=== PATIENT | female | born 1965 | race Caucasian/White ===

== ENCOUNTER 2019-09-21 11:26 | Inpatient (IN) | payer OTHER, SELFPAY ==
[~2019-09-21 11:26] MED LIST: Glycopyrrolate 0.2 MG/ML 5 ML SYRINGE ONE; PHENYLEPHRINE-NS 100 MCG/ML 10 ML SYRINGE ONE; Rocuronium Bromide 10 MG/ML (10ML VIAL) ONE; Succinylcholine Chloride 20 MG/ML 10 ml SYRINGE FS ONE
--- NOTE | 2019-09-21 12:05 | RAD ---
EXAM: Single view of the chest HISTORY: Anemia COMPARISON: 04/30/2009 FINDINGS: Single view of the chest shows a normal sized cardiomediastinal silhouette. There is no isis dence of consolidation, mass, or pleural effusion. The bones are unremarkable. IMPRESSION: No evidence of acute cardiopulmonary disease
[2019-09-21] MEDS ORDERED: Morphine 4 MG/ML VIAL ONE (13:20)
[2019-09-21] MEDS ORDERED: Mag-Al 1200 mg/1200 mg/30 ML UDCUP ONE (13:20)
[2019-09-21] MEDS ORDERED: Lidocaine Viscous Sol 2% 15 ml UD Cup ONE (13:20)
[2019-09-21 13:48] LABS: Hemoglobin 3.6 g/dL (12.0-16.0); Mean Corpuscular HGB CONC 32.3 g/dL (32.0-36.0); Mean Corpuscular Volume 83.6 fL (78.0-98.0); Mean Platelet Volume 7.7 fL (7.4-10.4); Platelet Count 443 thou/uL (130-400); RBC Distribution Width 16.7 % (11.5-14.5); Red Blood Cell (RBC) Count 1.32 mill/uL (4.20-5.40); White Blood Cell (WBC) Count 12.7 thou/uL (4.8-10.8)
[2019-09-21 13:51] LABS: INR-International Normal Ratio 1.1; Prothrombin Time 13.7 SEC (12.0-14.7)
[2019-09-21 13:52] LABS: PTT 21.2 SEC (22.9-36.1)
[2019-09-21 14:09] LABS: #Basophils 0.1 thou/uL (0.0-0.2); #Lymphocytes 2.2 thou/uL (1.20-3.40); #Monocytes 0.7 thou/uL (0.11-0.59); #Neutrophils 9.6 thou/uL (1.40-6.50); %Basophils 0.5 % (0.0-1.0); %Eosinophils 0.2 % (0.0-10.0); %Lymphocytes 17.7 % (21.0-51.0); %Monocytes 5.8 % (0.0-10.0); %Neutrophils 75.8 % (42.0-75.0); Band 5 % (5-11); Hypochromia MODERATE=16-30 cells (100X) (0-5/hpf); Lymphocytes 20 % (21-51); MDiff Complete? YES; Monocytes 3 % (0-10); Neutrophil 71 % (42-75); Platelet Morphology Comment Appears Increased; Polychromasia MODERATE = 3-4 cells (100X) (0-2/hpf); Reactive Lymphocytes 1 % (0-10); Reflex for Review?? YES; Schistocytes SLIGHT = 2-5 cells (100X) (0-1/hpf); Target Cells SLIGHT = 2-5 cells (100X) (0-1/hpf)
[2019-09-21 14:16] LABS: ALT (SGPT) 7 U/L (8-55); AST (SGOT) 11 U/L (5-34); Albumin 3.3 g/dL (3.5-5.0); Alkaline Phosphatase 70 U/L (40-110); Anion Gap 12 mmol/L (10-20); BUN (Urea Nitrogen) 10 mg/dL (9.8-20.1); Bilirubin, Total Less than 0.2 mg/dL (0.2-1.2); Calc. Creatinine Clearance 0 mL/min (70-130); Calcium 7.7 mg/dL (7.8-10.44); Carbon Dioxide 21 mmol/L (22-29); Chloride 107 mmol/L (98-107); Estimated GFR-MDRD 71; Globulin 2.1 g/dL (2.4-3.5); Glucose 119 mg/dL (70-105); Iron 9 ug/dL (50-170); Iron Binding Capacity, Total 396 mcg/dL (265-497); Potassium 3.9 mmol/L (3.5-5.1); Protein, Total 5.4 g/dL (6.0-8.3); Sodium 136 mmol/L (136-145)
[2019-09-21] MEDS ORDERED: Acetaminophen 325 MG TAB PO PRN (15:31)
[2019-09-21] MEDS ORDERED: Bisacodyl 10 MG SUPP PR PRN (15:31)
[2019-09-21] MEDS ORDERED: Senokot S 8.6-50 MG TAB PO PRN (15:31)
[2019-09-21] MEDS ORDERED: Ondansetron ODT 4 MG TAB PO PRN (15:31)
[2019-09-21] MEDS ORDERED: Pantoprazole 40 MG VIAL IVP SCH (15:34)
[2019-09-21] MEDS ORDERED: Fentanyl 100 MCG/2 ML VIAL ONE ×3 (17:23→20:39)
[2019-09-21 17:30] VITALS: BMI 28.7
[2019-09-21] MEDS ORDERED: Levofloxacin 500 mg/D5W 100 ml Premix Bag ONE (17:39)
[2019-09-21] MEDS ORDERED: Phenylephrine HCL 10 MG/ML VIAL ONE (18:11)
[2019-09-21] MEDS ORDERED: Ondansetron HCl/PF 4 MG/2 ML Vial IVP PRN (19:44)
[2019-09-21] MEDS ORDERED: Promethazine HCl 25 MG/ML VIAL IM PRN (19:44)
[2019-09-21] MEDS ORDERED: Promethazine HCl 25 MG/ML VIAL SLOW IVP PRN (19:44)
[2019-09-21] MEDS ORDERED: SUGAMMADEX SODIUM 200 MG/2 ML VIAL ONE (19:59)
[2019-09-21 20:17] LABS: INR-International Normal Ratio 1.1; PTT 23.7 SEC (22.9-36.1)
[2019-09-21 20:25] LABS: Anion Gap 13 mmol/L (10-20); BUN (Urea Nitrogen) 9 mg/dL (9.8-20.1); Calc. Creatinine Clearance 91 mL/min (70-130); Calcium 7.1 mg/dL (7.8-10.44); Carbon Dioxide 19 mmol/L (22-29); Chloride 110 mmol/L (98-107); Estimated GFR-MDRD 68; Glucose 118 mg/dL (70-105); Potassium 4.1 mmol/L (3.5-5.1); Sodium 138 mmol/L (136-145)
[2019-09-21 20:39] LABS: Hemoglobin 8.6 g/dL (12.0-16.0); Mean Corpuscular HGB CONC 32.9 g/dL (32.0-36.0); Mean Corpuscular Hemoglobin 28.8 pg (27.0-31.0); Mean Corpuscular Volume 87.6 fL (78.0-98.0); Platelet Count 291 thou/uL (130-400); RBC Distribution Width 14.1 % (11.5-14.5); Red Blood Cell (RBC) Count 2.99 mill/uL (4.20-5.40)
[2019-09-21 20:52] LABS: #Lymphocytes 2.2 thou/uL (1.20-3.40); #Monocytes 0.7 thou/uL (0.11-0.59); #Neutrophils 13.2 thou/uL (1.40-6.50); %Basophils 0.1 % (0.0-1.0); %Eosinophils 0.1 % (0.0-10.0); %Lymphocytes 13.4 % (21.0-51.0); %Monocytes 4.2 % (0.0-10.0); %Neutrophils 82.3 % (42.0-75.0); Hypochromia SLIGHT = 6-15 cells (100X) (0-5/hpf); MDiff Complete? YES; Platelet Morphology Comment Appears Adequate
[2019-09-21] MEDS ORDERED: Lorazepam 2 MG/ML VIAL SLOW IVP PRN (21:10)
[2019-09-21] MEDS: Ondansetron PF 4 MG/2 ML Vial IVP PRN (22:22)
[2019-09-21] MEDS: Sodium Chloride 0.9% 1,000 ML IV SCH (22:23)
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
--- NOTE | 2019-09-22 02:08 | OP ---
DATE OF PROCEDURE: 09/21/2019 POSTOPERATIVE DIAGNOSES: A 54-year-old female with large bladder tumor, severe anemia, presenting hemoglobin of 3.3. POSTOPERATIVE DIAGNOSES: A 54-year-old female with large bladder tumor, severe anemia, presenting hemoglobin of 3.3. PROCEDURES PERFORMED: Cystoscopy, evacuation of clots, transurethral resection of bladder tumor ANESTHESIA: General. COMPLICATIONS: None apparent. DISPOSITION: To recovery room in stable condition. INTRAOPERATIVE FINDINGS: 1. Large bladder tumor, hypervascular, more than 5 cm @ right lateral wall superior to the right UO. 2. Multiple neovascularity of the bladder mucosa due to large presenting bleeding bladder tumor. INDICATIONS FOR THE PROCEDURE: Ms. Montelongo is a 54-year-old female who has been smoking since age of 18, she is known to have a bladder mass; however, never had this evaluated or treated. She came in with worsening fatigue, myalgia, worsening GERD, epigastric abdominal discomfort She has been provided 2 units of packed RBCs and fluids. Remarkably, she is hemodynamically stable. I did irrigate at bedside. Extensive amount of clots were removed. Due to severe anemia, I have recommended emergent TURBT. Risks, complications and indications reviewed including, but not limited to, bleeding, pain, infection, perioperative morbidity, mortality, PE, DVT, MD, CVA, bladder perforation, injury to adjacent organs such as ureteral orifices. All questions answered to her satisfaction, she desired to proceed. She has been fully informed regarding gravity of presentation of severe anemia and large bladder tumor with bleeding. DESCRIPTION OF PROCEDURE: After an informed consent was signed, the patient taken the operating room, placed in a dorsal lithotomy position with the genital area prepped and draped in the usual surgical sterile fashion. A 21-Albanian cystoscope was utilized and a large bladder tumor with clot adherence was noted. We subsequently transitioned to a 26-Albanian resectoscope and Ellik evacuator was utilized to evacuate multiple large bladder clots. There was a large papillary bladder tumor in the right lateral wall, the base of the tumor was superior to the right ureteral orifice. The left UO was identified with clear efflux of urine. Using a Gyrus bipolar, we resected the bladder tumor. It was very hypervascular , there were multiple areas of hypervascularity, which resection was very challenging. We were able to resect a bladder complete, flush to the bladder mucosa. We sent specimen superficial, deep resection of specimen was obtained. I was able to see muscle fibers with the resection; therefore, I feel that we have muscle specimen. After appropriate complete resection of the bladder tumor, the bed of the tumor was fulgurated for good hemostasis. The right UO was identified and clear efflux of urine was confirmed after the resection. The margin of fulguration of the bladder tumor was just superior to the right UO; however, the right UO was protected at all times with clear efflux noted at the end of the procedure. A 24-Albanian three way 30 mL three-way Sawyer catheter was placed, CBI at a very low rate, which appears to be clear. She tolerated the procedure well and transported to the recovery room in stable condition. FLUIDS: IV fluids 2 liters. TRANSFUSIONS: Two units of packed RBCs, 2 units of FFP. ESTIMATED BLOOD LOSS: About 300 mL. Job ID: [id number] MTDD
[2019-09-22] MEDS: Nicotine 14 MG PATCH TD SCH ×2 (02:41→16:51)
[2019-09-22] MEDS: Hyoscyamine Sulfate SL 0.125 mg Tablet SL SCH ×5 (02:41→22:37)
[2019-09-22] MEDS: Sodium Chloride 0.9% 1,000 ML IV SCH (02:47)
[2019-09-22 06:10] LABS: Anion Gap 11 mmol/L (10-20); BUN (Urea Nitrogen) 8 mg/dL (9.8-20.1); Calc. Creatinine Clearance 104 mL/min (70-130); Calcium 7.1 mg/dL (7.8-10.44); Carbon Dioxide 17 mmol/L (22-29); Chloride 110 mmol/L (98-107); Estimated GFR-MDRD 80; Glucose 85 mg/dL (70-105); Potassium 3.8 mmol/L (3.5-5.1); Sodium 134 mmol/L (136-145)
[2019-09-22] MEDS: Docusate 100 MG CAP PO SCH ×3 (06:26→20:09)
[2019-09-22 07:01] LABS: #Lymphocytes 1.6 thou/uL (1.20-3.40); #Monocytes 0.7 thou/uL (0.11-0.59); #Neutrophils 9.3 thou/uL (1.40-6.50); %Basophils 0.3 % (0.0-1.0); %Eosinophils 0.4 % (0.0-10.0); %Monocytes 5.7 % (0.0-10.0); %Neutrophils 79.6 % (42.0-75.0); Anisocytosis SLIGHT = 6-15 cells (100X) (0-5/hpf); Hemoglobin 7.9 g/dL (12.0-16.0); Hypochromia SLIGHT = 6-15 cells (100X) (0-5/hpf); MDiff Complete? YES; Mean Corpuscular HGB CONC 33.4 g/dL (32.0-36.0); Mean Platelet Volume 8.1 fL (7.4-10.4); Platelet Count 304 thou/uL (130-400); RBC Distribution Width 14.6 % (11.5-14.5); Red Blood Cell (RBC) Count 2.73 mill/uL (4.20-5.40); White Blood Cell (WBC) Count 11.7 thou/uL (4.8-10.8)
[2019-09-22] MEDS ORDERED: Lactated Ringer's 1,000 ML IV SCH (08:45)
[2019-09-22] MEDS: Morphine 4 MG/ML VIAL SLOW IVP PRN (09:21)
--- NOTE | 2019-09-22 10:31 | PRG ---
DATE OF SERVICE: 09/22/2019 SUBJECTIVE: The patient is resting, complaining of epigastric discomfort, which was present prior to surgery. OBJECTIVE: VITAL SIGNS: Stable. CBI was running at a very low rate with clear yellow urine. CBI held this morning and continues to have clear dilute urine. ABDOMEN: Demonstrates upper epigastric discomfort as previous. Suprapubic area demonstrates no significant rigidity or rebound. Sawyer catheter adequately secured, draining clear yellow urine. EXTREMITIES: No cyanosis, clubbing, or edema. PERTINENT LABORATORY DATA: White count today is 11, hemoglobin is 7.9. Prior to surgery, her hemoglobin is 3.6, platelets 304. Renal function stable at 0.76. Pathology is pending. IMPRESSION AND PLAN: Ms. Montelongo is a 54-year-old female with significant tobacco abuse, known history of bladder mass with no evaluation, presented with clot retention, severe anemia, postoperative day #1, status post cysto, transurethral resection of bladder tumor, evacuation of clots. Her H and H are stable, hematuria has near resolved. will continue to monitor the patient with indwelling Sawyer catheter; hold CBI. Nurses instructed to restart CBI or flush tubing p.r.n. for clots debris. Case Management consultation advised, as she is noninsured. No anticoagulation due to severe anemia and presenting large bladder tumor with clot retention. Continue bilateral Vitaliy Noguera for DVT/ ATB prophylaxis. Job ID: [id number] ANA
--- NOTE | 2019-09-22 11:21 | PDOC.HOSPP ---
- Subjective Encounter Date: 09/22/19 Encounter Time: 11:18 Subjective: 54 y/o female with bladder mass associated with chronic hematuria, GERD and tobacco abuse disorder admitted with difficulty urination. Found to have gross hematuria on passage of catheter as well as severe anemia with Hb of 3. Transfused and subsequently taken to oral for cyst and transurethral resection of bladder mass. complains of generalized weakness, and epigastric discomfort. - Objective Vital Signs & Weight: Vital Signs (12 hours) Temp Pulse Ox 09/22/19 10:38 99.4 F 09/22/19 08:00 96 09/22/19 07:11 99.3 F 09/22/19 03:50 98.4 F 09/22/19 00:00 98.0 F Weight Weight 167 lb 8 oz Most Recent Monitor Data Heart Rate from ECG 74 NIBP 115/69 NIBP BP-Mean 84 Respiration from ECG 20 SpO2 96 I&O: 09/21/19 09/22/19 09/23/19 06:59 06:59 06:59 Intake Total 0 Output Total 350 Balance -350 Result Diagrams: 09/22/19 05:30 09/22/19 05:30 Hospitalist ROS - Medication Medications: Active Medications Generic Name Dose Route Start Last Admin Trade Name Freq PRN Reason Stop Dose Admin Docusate Sodium 100 mg 09/21/19 21:00 09/22/19 09:22 Colace PO 100 mg BID DEMETRIO Administration Hyoscyamine Sulfate 0.25 mg 09/21/19 23:59 09/22/19 07:06 Levsin Sl SL 0.25 mg Q6HR DEMETRIO Administration Lactated Ringer's 1,000 mls @ 100 mls/hr 09/22/19 08:45 09/22/19 09:22 Lactated Ringer's IV 1,000 mls .Q10H DEMETRIO Administration Lorazepam 1 mg 09/21/19 21:10 09/21/19 22:23 Ativan SLOW IVP 1 mg Q4H PRN Administration Anxiety/Agitation Morphine Sulfate 4 mg 09/21/19 19:33 09/22/19 09:21 Morphine SLOW IVP 4 mg Q2H PRN Administration Severe Pain (7-10) Nicotine 14 mg 09/21/19 16:00 09/22/19 02:41 Nicoderm Patch TD 14 mg Q24HR DEMETRIO Administration Ondansetron HCl 4 mg 09/21/19 15:31 09/21/19 16:26 Zofran Odt PO 4 mg Q6H PRN Administration Nausea/Vomiting Ondansetron HCl 4 mg 09/21/19 15:31 09/21/19 22:22 Zofran IVP 4 mg Q6H PRN Administration Nausea/Vomiting Pantoprazole Sodium 40 mg 09/22/19 09:00 09/22/19 09:22 Protonix PO 40 mg DAILY DEMETRIO Administration Sodium Chloride 10 ml 09/21/19 19:33 09/22/19 09:21 Flush - Normal Saline IVF 10 ml PRN PRN Administration Saline Flush - Exam General Appearance: awake alert General - other findings: fatigued Eye: anicteric sclera ENT: normocephalic atraumatic Neck: supple, symmetric, no JVD Heart: RRR Respiratory: no wheezes, no rales, no ronchi, normal chest expansion, no tachypnea Gastrointestinal: soft, non-distended, normal bowel sounds Gastrointestinal - other findings: christie catheter in place Extremities: no cyanosis, no edema Neurological: cranial nerve grossly intact, no focal deficits Musculoskeletal: generalized weakness Psychiatric: normal affect, A&O x 3 Hosp A/P (1) Bladder cancer Status: Acute (2) Iron deficiency anemia due to chronic blood loss Code(s): D50.0 - IRON DEFICIENCY ANEMIA SECONDARY TO BLOOD LOSS (CHRONIC) Status: Acute (3) Chronic blood loss anemia Code(s): D50.0 - IRON DEFICIENCY ANEMIA SECONDARY TO BLOOD LOSS (CHRONIC) Status: Acute (4) GERD (gastroesophageal reflux disease) Code(s): K21.9 - GASTRO-ESOPHAGEAL REFLUX DISEASE WITHOUT ESOPHAGITIS Status: Acute (5) Tobacco abuse disorder Code(s): Z72.0 - TOBACCO USE Status: Acute (6) Gross hematuria Status: Acute (7) Acute urinary retention Code(s): R33.8 - OTHER RETENTION OF URINE Status: Acute (8) Metabolic acidosis Code(s): E87.2 - ACIDOSIS Status: Acute - Plan Substituye NS with LR Continue antibiotics Start IV iron to replete iron stores due to severe iron deficiency CBI as per urology Continue PPI. Rule AMI with serial troponin. diet as tolerated. SCD for DVT prophylaxis monitor H/H Await bladder mass pathology.
[2019-09-22] MEDS ORDERED: Iron, Sodium Ferric Gluconate 250 MG in Sodium Chloride 0.9% 100 ML IVPB SCH (12:00)
[2019-09-22] MEDS: Ondansetron PF 4 MG/2 ML Vial IVP PRN (12:13)
[2019-09-22] MEDS: Morphine 2 MG/ML SYRINGE SLOW IVP PRN ×2 (12:15→19:05)
[2019-09-22 14:03] LABS: Troponin I Less than 0.010 ng/mL (< 0.028)
[2019-09-22] MEDS ORDERED: Furosemide 20 MG/2 ML VIAL SLOW IVP SCH (16:45)
--- NOTE | 2019-09-22 17:32 | CON ---
DATE OF CONSULTATION: 09/22/2019 REASON FOR CONSULTATION: [facility] patient. HISTORY OF PRESENT ILLNESS: The patient is a 54-year-old white female with past medical history significant for recent diagnosis of hematuria. Ultimately, she was discovered to have a bladder mass. She is postop day #1 from cystoscopy, evacuation of clots with transurethral resection of bladder tumor. Apparently, there was a significant amount of blood loss prior to and during the procedure. Ultimately , the patient is currently recovering from that. She had significant amounts of IV fluids during the procedure and afterward. She received multiple blood products. She currently denies having any shortness of breath. She has no chest discomfort, nausea, or vomiting. Otherwise, she is in her usual state of health. PAST MEDICAL HISTORY: 1. Gastroesophageal reflux disease. 2. Bladder mass. 3. Hypertension. 4. COPD. 5. Tobacco abuse. PAST SURGICAL HISTORY: 1. Laparotomy for exploration. 2. Splenectomy. 3. Spine surgery. SOCIAL HISTORY: Negative for significant alcohol or illicit drug use. She has a [id number] history of smoking. She has no exposure to chemicals, dust, asbestos, or tuberculosis. FAMILY HISTORY: Noncontributory. ALLERGIES: ASPIRIN. MEDICATIONS: List of her inpatient medications was reviewed. I have introduced a small dose of Lasix and interrupted her IV fluids. REVIEW OF SYSTEMS: General, head, ears, eyes, nose, throat, cardiovascular, respiratory, GI, , musculoskeletal, neurologic, and skin are negative except as mentioned in the HPI. PHYSICAL EXAMINATION: VITAL SIGNS: Afebrile, pulse 72, blood pressure 134/79, respirations 20, and saturation 97% on room air. GENERAL: The patient is awake and alert, in no apparent distress. LUNGS: Decent air entry. Extensive crackling present in bibasilar regions. There is no prolonged expiratory phase or wheezing present. HEART: Normal rate, regular. ABDOMEN: Soft, nontender, and nondistended. Bowel sounds are positive. MUSCULOSKELETAL: No cyanosis or clubbing. There is no pitting in the bilateral lower extremities. NEUROLOGIC: Grossly nonfocal. LABORATORY DATA: Hemoglobin was down to 3.3 at one point, but it has come up to 7.9. INR 1.1. Calcium 7.1. Basic metabolic profile is otherwise unremarkable/improving. Urinalysis is unable to interpret because of the significant blood. Nitrites and leukocyte esterase were all positive. ASSESSMENT: 1. Gross hematuria. 2. Acute blood loss anemia. 3. Bladder mass, status post transurethral excision, postop day #1. 4. Acute hypoxic respiratory failure, improving. 5. Metabolic encephalopathy, improving. DISCUSSION AND PLAN: I am going to give the patient a couple doses of Lasix, one now and one tomorrow morning. She has significantly volume up associated with the resuscitation that she experienced yesterday. Pulmonary/Critical Care will continue to follow for the time being. If she is stable tomorrow morning, she could be considered for transition to the floor. 70 minutes have been devoted to this patient in various activities. I personally reviewed all imaging studies and laboratory data noted within this document. For fifty percent of this time, I was interacting with the patient at the bedside or coordinating care with the care team. For the remainder of the time I was immediately available to the patient in the hospital unit. Job ID: [id number] MTDD
[2019-09-22] MEDS ORDERED: rOPINIRole HCl 0.25 MG TAB PO SCH (22:15)
[2019-09-23] MEDS: Hyoscyamine Sulfate SL 0.125 mg Tablet SL SCH ×4 (05:01→23:32)
[2019-09-23] MEDS: Morphine 2 MG/ML SYRINGE SLOW IVP PRN ×4 (05:01→14:00)
[2019-09-23] MEDS ORDERED: Furosemide 20 MG/2 ML VIAL SLOW IVP SCH (06:00)
[2019-09-23] MEDS: Iron, Sodium Ferric Gluconate 250 MG in Sodium Chloride 0.9% 100 ML IVPB SCH (09:20)
[2019-09-23] MEDS: Docusate 100 MG CAP PO SCH ×2 (09:20→20:55)
[2019-09-23 09:55] LABS: Hemoglobin 9.1 g/dL (12.0-16.0); Mean Corpuscular HGB CONC 33.2 g/dL (32.0-36.0); Mean Corpuscular Hemoglobin 28.7 pg (27.0-31.0); Mean Corpuscular Volume 86.4 fL (78.0-98.0); Mean Platelet Volume 9.3 fL (7.4-10.4); Platelet Count 285 thou/uL (130-400); RBC Distribution Width 15.4 % (11.5-14.5); Red Blood Cell (RBC) Count 3.17 mill/uL (4.20-5.40); White Blood Cell (WBC) Count 10.1 thou/uL (4.8-10.8)
[2019-09-23 10:24] LABS: Anion Gap 13 mmol/L (10-20); BUN (Urea Nitrogen) 6 mg/dL (9.8-20.1); Calc. Creatinine Clearance 100 mL/min (70-130); Calcium 8.3 mg/dL (7.8-10.44); Carbon Dioxide 26 mmol/L (22-29); Chloride 102 mmol/L (98-107); Estimated GFR-MDRD 76; Glucose 96 mg/dL (70-105); Sodium 138 mmol/L (136-145)
--- NOTE | 2019-09-23 11:30 | PDOC.HOSPP ---
- Subjective Encounter Date: 09/23/19 Encounter Time: 10:28 Subjective: 54 y/o female with bladder mass associated with chronic hematuria, GERD and tobacco abuse disorder admitted with difficulty urination. Found to have gross hematuria on passage of catheter as well as severe anemia with Hb of 3. Transfused and subsequently taken to oral for cystoscopy and transurethral resection of bladder mass. Feeling better. - Objective Vital Signs & Weight: Vital Signs (12 hours) Temp 09/23/19 10:23 97.9 F 09/23/19 07:12 98.4 F 09/23/19 03:56 99.0 F 09/22/19 23:39 98.7 F Weight Admit Weight 167 lb Weight 167 lb 8 oz Most Recent Monitor Data Heart Rate from ECG 68 NIBP 124/69 NIBP BP-Mean 87 Respiration from ECG 16 SpO2 97 I&O: 09/22/19 09/23/19 09/24/19 06:59 06:59 06:59 Intake Total 0 2990 Output Total 350 6175 Balance -350 -3185 Result Diagrams: 09/23/19 09:19 09/23/19 09:19 Hospitalist ROS - Medication Medications: Active Medications Generic Name Dose Route Start Last Admin Trade Name Freq PRN Reason Stop Dose Admin Acetaminophen 650 mg 09/21/19 15:31 09/22/19 16:51 Tylenol PO 650 mg Q4H PRN Administration Headache/Fever/Mild Pain (1-3) Docusate Sodium 100 mg 09/21/19 21:00 09/23/19 09:20 Colace PO 100 mg BID DEMETROI Administration Furosemide 20 mg 09/23/19 06:00 09/23/19 05:01 Lasix SLOW IVP 20 mg 0600 DEMETRIO Administration Hyoscyamine Sulfate 0.25 mg 09/21/19 23:59 09/23/19 05:01 Levsin Sl SL 0.25 mg Q6HR DEMERTIO Administration Levofloxacin 500 mg/ Device 100 mls @ 100 mls/hr 09/22/19 18:00 09/22/19 17: 03 IVPB 100 mls 1800 DEMETRIO Administration Ferric Sodium Gluconate 120 mls @ 60 mls/hr 09/23/19 09:00 09/23/19 09:20 Complex 250 mg/ Sodium IVPB 09/25/19 09:01 120 mls Chloride DAILY DEMETRIO Administration Lorazepam 1 mg 09/21/19 21:10 09/21/19 22:23 Ativan SLOW IVP 1 mg Q4H PRN Administration Anxiety/Agitation Morphine Sulfate 2 mg 09/21/19 19:33 09/23/19 09:23 Morphine SLOW IVP 2 mg Q2H PRN Administration Moderate Pain (4-6) Morphine Sulfate 4 mg 09/21/19 19:33 09/22/19 09:21 Morphine SLOW IVP 4 mg Q2H PRN Administration Severe Pain (7-10) Nicotine 14 mg 09/21/19 16:00 09/22/19 16:51 Nicoderm Patch TD 14 mg Q24HR DEMETRIO Administration Ondansetron HCl 4 mg 09/21/19 15:31 09/21/19 16:26 Zofran Odt PO 4 mg Q6H PRN Administration Nausea/Vomiting Ondansetron HCl 4 mg 09/21/19 15:31 09/22/19 12:13 Zofran IVP 4 mg Q6H PRN Administration Nausea/Vomiting Pantoprazole Sodium 40 mg 09/22/19 09:00 09/23/19 09:20 Protonix PO 40 mg DAILY DEMETRIO Administration Sodium Chloride 10 ml 09/21/19 19:33 09/22/19 09:21 Flush - Normal Saline IVF 10 ml PRN PRN Administration Saline Flush - Exam General Appearance: awake alert Eye: anicteric sclera ENT: normocephalic atraumatic Neck: symmetric, no JVD Heart: RRR Respiratory: no wheezes, no rales, no ronchi, normal chest expansion Respiratory - other findings: mild bibasal crackles posteriorly Gastrointestinal: soft, non-tender, non-distended, normal bowel sounds Gastrointestinal - other findings: Sawyer catheter in place Extremities: no edema Neurological: cranial nerve grossly intact, no focal deficits Psychiatric: normal affect, A&O x 3 Hosp A/P (1) Bladder cancer Status: Acute (2) Iron deficiency anemia due to chronic blood loss Code(s): D50.0 - IRON DEFICIENCY ANEMIA SECONDARY TO BLOOD LOSS (CHRONIC) Status: Acute (3) Chronic blood loss anemia Code(s): D50.0 - IRON DEFICIENCY ANEMIA SECONDARY TO BLOOD LOSS (CHRONIC) Status: Acute (4) GERD (gastroesophageal reflux disease) Code(s): K21.9 - GASTRO-ESOPHAGEAL REFLUX DISEASE WITHOUT ESOPHAGITIS Status: Acute (5) Tobacco abuse disorder Code(s): Z72.0 - TOBACCO USE Status: Acute (6) Gross hematuria Status: Acute (7) Acute urinary retention Code(s): R33.8 - OTHER RETENTION OF URINE Status: Acute (8) Metabolic acidosis Code(s): E87.2 - ACIDOSIS Status: Acute (9) Hypokalemia Code(s): E87.6 - HYPOKALEMIA Status: Acute - Plan Replete serum potassium with oral KCL. Continue antibiotics ContinueIV iron to replete iron stores due to severe iron deficiency CBI as per urology Continue PPI. Diet as tolerated. SCD for DVT prophylaxis Get CBC, BMP and magnesium in the am. Await bladder mass pathology.
--- NOTE | 2019-09-23 11:35 | PRG ---
DATE OF SERVICE: 09/23/2019 SUBJECTIVE: The patient appears to be much more alert, coherent. Clinically, she is improving. OBJECTIVE: VITAL SIGNS: Stable. She is afebrile. I's and O's 2990 in and 6170 out. She is negative 3.1 L. she has been provided IV Lasix by Pulmonology. Urine output is clear. ABDOMEN: Soft. No rigidity. No rebound. : Sawyer catheter draining dilute clear urine. EXTREMITIES: No cyanosis, clubbing, or edema. No calf tenderness. LABORATORY DATA: White count is 10, hemoglobin is 9.1 and admitting hemoglobin is 3.3, and platelet count 285. Coagulation profile is within normal limits. Creatinine today is 0.7. Troponins are negative. IMPRESSION AND PLAN: Ms. Montelongo is a 54-year-old female with history of significant tobacco abuse, presented with severe anemia and large bladder tumor and clot retention, postop day #2, status post transurethral resection of bladder tumor, evacuation of clots Clinically, she is improving. She has been diuresed aggressively by Pulmonology. Consider Hep- Lock IV as she is consuming adequate oral intake. Continue to monitor daily labs. I informed the patient that intraoperative findings of large bladder tumor. There is a high probability that she has muscle invasive bladder cancer. It would be prudent to obtain a Cardiology evaluation, due to significant tobacco abuse, as she will most likely require cardiac clearance for more definitive surgery i.e., radical cystectomy. Indications reviewed. Questions were encouraged and answered. Continue indwelling Sawyer catheter, do not remove Sawyer catheter unless initiated by . Job ID: [id number]
[2019-09-23] MEDS: Potassium Chloride 20 MEQ TAB PO SCH ×3 (12:20→19:05)
--- NOTE | 2019-09-23 12:41 | CON ---
DATE OF CONSULTATION: 09/23/2019 REASON FOR CONSULTATION: Preoperative evaluation. HISTORY OF PRESENT ILLNESS: Ms. Montelongo is a pleasant 54-year-old white female, who comes to the hospital for shortness of breath and lower abdominal pain and epigastric pain. She was diagnosed with severe anemia. She had a hemoglobin of 3. She had been having hematuria for at least two weeks prior. She had a known history of bladder cancer that she had not been taking care of, so Dr. Carr took her for cystoscopy and resection of bladder tumor. She alleviated the obstruction and bleeding and she has been transfused. Her last hemoglobin was about 9. She denies chest pain, but admits to some epigastric pain. She says it is there most of the time. She also has a lot of bladder pain. Sometimes she eats and she has right upper quadrant pain as well just after meals. She has not been doing much and we does not know if she would get short of breath, because of the amount of pain she was in, she was just in bed most of the time. PAST MEDICAL HISTORY: 1. GERD. 2. Bladder mass. 3. Hypertension. 4. COPD. 5. Tobacco abuse. PAST SURGICAL HISTORY: 1. Exploratory laparotomy. 2. Splenectomy. 3. Spine surgery. SOCIAL HISTORY: No alcohol or drugs. A 30 pack-year smoking history. FAMILY HISTORY: Noncontributory. OUTPATIENT MEDICATIONS: Aspirin 81 a day. ALLERGIES: NO KNOWN DRUG ALLERGIES. IN THE SYSTEM, THERE HAS BEEN SOMEWHERE THAT THEY SAY THAT SHE IS ALLERGIC TO ASPIRIN, HOWEVER, SHE HAS BEEN TAKING ASPIRIN MANY TIMES, SHE WAS TAKING IT BEFORE COMING IN AND SHE HAS NEVER HAD AN ALLERGIC REACTION THAT SHE KNOWS OF. REVIEW OF SYSTEMS: A 12-point review of systems was done and was all negative unless stated in history of present illness. PHYSICAL EXAMINATION: VITAL SIGNS: Temperature 97.9, pulse rate 68, respiratory rate 16, saturating 97% on room air, and blood pressure 124/69. GENERAL: Awake, alert, and oriented x3. No distress. HEENT: Normocephalic and atraumatic. NECK: Supple. LUNGS: Clear. CARDIOVASCULAR: S1 and S2. No S3 or S4. No murmurs. ABDOMEN: Soft. Positive bowel sounds. EXTREMITIES: No edema. SKIN: Warm and dry. LABORATORY DATA: Laboratory work was reviewed. White count of 12 on admission with a hemoglobin of 3.6 up to 9.1 and white count of 10, platelet count of 285. Coags were unremarkable. Chemistries; the last chemistry with a sodium of 138, potassium was 3.0, chloride of 102, carbon dioxide of 26, anion gap of 13, BUN of 6, creatinine 0.79. Troponin was negative x1. Ferritin was undetectable. Total bilirubin was undetectable. Glucose was 119; calcium was 7.7, last time it was 8.3, iron was 9, which is very low; albumin of 3.3. EKG was reviewed. ASSESSMENT/PLAN: 1. Preoperative evaluation. 2. History of tobacco use. 3. History of right upper quadrant pain and epigastric pain. PLAN: 1. Certainly cannot assess her level of mets, because of all this pain she has been having, she really has not been able to do much. She is at risk for coronary artery disease with tobacco use. We will plan on risk stratification with a nuclear stress test. We will do this tomorrow morning. We will also get an echocardiogram. Nothing high risk shows on these tests. She should be a reasonable risk for further surgeries. 2. We will get a right upper quadrant ultrasound as she may also have gallstones as the symptoms would suggest pain in the right upper quadrant after meals. Thank you for letting us to participate in the care of your patient. We will continue to follow. Job ID: [id number]
[2019-09-23] MEDS: Nicotine 14 MG PATCH TD SCH (15:28)
[2019-09-23] MEDS: HYDROcodone/Acetaminophen 5/325 mg Tablet PO PRN ×3 (15:33→23:34)
--- NOTE | 2019-09-23 18:41 | PRG ---
DATE OF SERVICE: 09/23/2019 SERVICE: Pulmonary Medicine. INTERVAL HISTORY: The patient is breathing okay from respiratory standpoint. Denies any current chest discomfort, nausea, or vomiting. Otherwise, there has been no interval significant change to her condition. PHYSICAL EXAMINATION: VITAL SIGNS: Afebrile, pulse 73, blood pressure 128/81, respirations 18, and saturation 93%, currently on room air. GENERAL: The patient is awake and alert, in no apparent distress. LUNGS: Very good air entry. There is some minimal dependent crackles present. No prolonged expiratory phase or wheezing is appreciated. HEART: Normal rate. Regular. ABDOMEN: Soft. Tender to palpation. Bowel sounds present. MUSCULOSKELETAL: No cyanosis or clubbing. No pitting in the bilateral lower extremities. NEUROLOGIC: Grossly nonfocal. LABORATORY DATA: WBC 10.1, hemoglobin 9.1, and platelets 285,000. Basic metabolic profile is unremarkable except for potassium of 3.0. Troponin is less than the assay limit of 0.01. ASSESSMENT: 1. Gross hematuria, resolved. 2. Acute blood loss anemia, stable. 3. Bladder mass, status post transurethral excision, postop day 2. 4. Metabolic encephalopathy, resolved. DISCUSSION AND PLAN: I will replace the patient's potassium. Her hemodynamics, respiratory status, and hemoglobin are stable. At this point, she has no further requirements for inpatient Pulmonary or Critical Care opinion, and I will sign off. Please call with additional questions or concerns through time. Job ID: [id number]
[2019-09-23] MEDS: rOPINIRole HCl 0.25 MG TAB PO SCH (20:57)
[2019-09-24] MEDS: HYDROcodone/Acetaminophen 5/325 mg Tablet PO PRN ×5 (03:44→23:44)
[2019-09-24 04:22] LABS: Hemoglobin 8.1 g/dL (12.0-16.0); Mean Corpuscular HGB CONC 33.1 g/dL (32.0-36.0); Mean Corpuscular Hemoglobin 28.8 pg (27.0-31.0); Mean Platelet Volume 8.3 fL (7.4-10.4); Platelet Count 339 thou/uL (130-400); RBC Distribution Width 15.6 % (11.5-14.5)
[2019-09-24 04:53] LABS: Anion Gap 10 mmol/L (10-20); BUN (Urea Nitrogen) 7 mg/dL (9.8-20.1); Calc. Creatinine Clearance 101 mL/min (70-130); Calcium 8.1 mg/dL (7.8-10.44); Carbon Dioxide 25 mmol/L (22-29); Chloride 107 mmol/L (98-107); Estimated GFR-MDRD 78; Glucose 87 mg/dL (70-105); Magnesium 2.2 mg/dL (1.6-2.6); Potassium 4.1 mmol/L (3.5-5.1); Sodium 138 mmol/L (136-145)
[2019-09-24] MEDS: Hyoscyamine Sulfate SL 0.125 mg Tablet SL SCH ×4 (05:20→23:44)
--- NOTE | 2019-09-24 08:21 | ULT ---
RIGHT UPPER QUADRANT ULTRASOUND: HISTORY: Right upper quadrant pain after meals. COMPARISON: None. TECHNIQUE: Utilizing a Multihertz transducer, sonographic imaging of the right upper quadrant is performed in a longitudinal and transverse plane. FINDINGS: The head of the pancreas has a normal echotexture. The remainder of the pancreas is obscured by sg l gas. The visualized IVC is unremarkable. Hepatic parenchyma has a heterogeneous echotexture which may be due to hepatic steatosis or hepatocel lular disease. Limited evaluation for hepatic masses and intrahepatic biliary dilatation. Contour o f the hepatic margin is maintained. There does appear to be a small amount of right-sided pleural fluid. A small amount of pericholecystic fluid. Gallbladder wall is thickened measuring 0.5 cm. Gallbladde r is contracted. No sonographic evidence of cholelithiasis. Habilitative Interventionist reports a negative Graham's sign. The right kidney has a normal cortical echotexture. No hydronephrosis. The right kidney measures 5. 0 x 4.9 x 9.5 cm. Common bile duct diameter is 0.75 cm. IMPRESSION: 1. Dilatation of the common bile duct. 2. Contracted gallbladder with evidence of gallbladder wall thickening and pericholecystic fluid. C onsider HIDA scan for further evaluation. POS: OFF
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
--- NOTE | 2019-09-24 08:55 | PRG ---
DATE OF SERVICE: 09/24/2019 SUBJECTIVE: The patient complaining of vague epigastric discomfort as previous. Abdominal ultrasound has been ordered, not yet read officially. at bedside. I informed both the patient and regarding intraoperative findings of large bladder mass consistent with transitional cell carcinoma. Pathology pending. OBJECTIVE: VITAL SIGNS: Stable. I's and O's; 1710 in and 3575 out. She is negative 1.8 L. ABDOMEN: Soft. No rigidity. No rebound. Upper incisional hernia is noted. No suprapubic tenderness or distention. LABORATORY DATA: White count 12, hemoglobin is stable at 8.1, platelets 339. Creatinine 0.7. Urine culture preliminary is negative. Pathology pending. IMPRESSION AND PLAN: A 54-year-old female with history of tobacco abuse, presented with severe anemia, clot retention, large bladder tumor. Postop day # 3, status post evacuation of clots, transurethral resection of bladder tumour. Her hemoglobin and hematocrit are stable, CBI port has been plugged. Urine output remains clear. Await final pathology. Appreciate Cardiology consultation for cardiac clearance. Abdominal ultrasound final read is pending. Continue antibiotics. No anticoagulation due to severe anemia, large bladder tumor recently resected. Job ID: [id number] MTDD
[2019-09-24] MEDS: Docusate 100 MG CAP PO SCH ×2 (10:00→19:43)
[2019-09-24] MEDS: Iron, Sodium Ferric Gluconate 250 MG in Sodium Chloride 0.9% 100 ML IVPB SCH (11:15)
--- NOTE | 2019-09-24 11:36 | NM ---
NUCLEAR MEDICINE CARDIAC MYOCARDIAL PERFUSION SPECT EJECTION FRACTION STUDY WALL MOTION CINE: DATE: 09/24/2019 HISTORY: 54 year old smoker presents with acute chest pain. TECHNIQUE: Number of days: 1 Rest study: Technetium 99m-sestamibi (Cardiolite) dose: 10.5 mCi Pharmacologic stress: Lexiscan dose: 0.4 mg Stress study: Technetium 99m-sestamibi (Cardiolite) dose: 32.0 mCi FINDINGS: CARDIAC (MYOCARDIAL PERFUSION) SPECT Distribution of sestamibi is homogeneous throughout the left ventricle, with no fixed or reversible m yocardial perfusion defects. EJECTION FRACTION STUDY Left ventricular EF = 73 % WALL MOTION CINE The left ventricular wall motion is normal. There is normal systolic wall thickening. IMPRESSION: Normal.
[2019-09-24] MEDS: Nicotine 14 MG PATCH TD SCH (15:30)
[2019-09-24] MEDS ORDERED: Regadenoson 0.4 MG/5 ML SYRINGE ONE (15:31)
--- NOTE | 2019-09-24 16:20 | PDOC.HOSPP ---
- Subjective Encounter Date: 09/24/19 Encounter Time: 13:19 Subjective: 54 y/o female with bladder mass associated with chronic hematuria, GERD and tobacco abuse disorder admitted with difficulty urination. Found to have gross hematuria on passage of catheter as well as severe anemia with Hb of 3. Transfused and subsequently taken to oral for cystoscopy and transurethral resection of bladder mass. Had nuclear stress and echo in preop cardiac eval. No new problem. - Objective Vital Signs & Weight: Vital Signs (12 hours) Temp Pulse Resp BP Pulse Ox 09/24/19 15:23 97.9 F 72 14 135/65 97 09/24/19 11:00 97.9 F 75 18 131/83 99 09/24/19 10:55 96 09/24/19 07:48 97.9 F 64 18 134/81 96 Weight Admit Weight 167 lb Weight 167 lb 8 oz Most Recent Monitor Data Heart Rate from ECG 72 NIBP 120/80 NIBP BP-Mean 93 Respiration from ECG 16 SpO2 96 I&O: 09/23/19 09/24/19 09/25/19 06:59 06:59 06:59 Intake Total 2990 1710 Output Total 6175 8234 Balance -7287 -6469 Result Diagrams: 09/24/19 04:02 09/24/19 04:02 Hospitalist ROS - Medication Medications: Active Medications Generic Name Dose Route Start Last Admin Trade Name Freq PRN Reason Stop Dose Admin Acetaminophen 650 mg 09/21/19 15:31 09/22/19 16:51 Tylenol PO 650 mg Q4H PRN Administration Headache/Fever/Mild Pain (1-3) Hydrocodone Bitart/Acetaminophen 1 tab 09/21/19 15:31 09/24/19 15:30 Manor 5/325 PO 1 tab Q4H PRN Administration Moderate Pain (4-6) Docusate Sodium 100 mg 09/21/19 21:00 09/24/19 10:00 Colace PO Not Given BID DEMETRIO Hyoscyamine Sulfate 0.25 mg 09/21/19 23:59 09/24/19 12:45 Levsin Sl SL 0.25 mg Q6HR DEMETRIO Administration Levofloxacin 500 mg/ Device 100 mls @ 100 mls/hr 09/22/19 18:00 09/23/19 18: 01 IVPB 100 mls 1800 DEMETRIO Administration Ferric Sodium Gluconate 120 mls @ 60 mls/hr 09/23/19 09:00 09/24/19 11:15 Complex 250 mg/ Sodium IVPB 09/25/19 09:01 120 mls Chloride DAILY DEMETRIO Administration Lorazepam 1 mg 09/21/19 21:10 09/21/19 22:23 Ativan SLOW IVP 1 mg Q4H PRN Administration Anxiety/Agitation Morphine Sulfate 2 mg 09/21/19 19:33 09/23/19 14:00 Morphine SLOW IVP 2 mg Q2H PRN Administration Moderate Pain (4-6) Morphine Sulfate 4 mg 09/21/19 19:33 09/22/19 09:21 Morphine SLOW IVP 4 mg Q2H PRN Administration Severe Pain (7-10) Nicotine 14 mg 09/21/19 16:00 09/24/19 15:30 Nicoderm Patch TD 14 mg Q24HR DEMETRIO Administration Ondansetron HCl 4 mg 09/21/19 15:31 09/21/19 16:26 Zofran Odt PO 4 mg Q6H PRN Administration Nausea/Vomiting Ondansetron HCl 4 mg 09/21/19 15:31 09/22/19 12:13 Zofran IVP 4 mg Q6H PRN Administration Nausea/Vomiting Pantoprazole Sodium 40 mg 09/22/19 09:00 09/24/19 10:00 Protonix PO Not Given DAILY DEMETRIO Ropinirole HCl 0.25 mg 09/23/19 21:00 09/23/19 20:57 Requip PO 0.25 mg HS DEMETRIO Administration Sodium Chloride 10 ml 09/21/19 19:33 09/23/19 18:01 Flush - Normal Saline IVF 10 ml PRN PRN Administration Saline Flush - Exam General Appearance: awake alert Eye: PERRL, anicteric sclera ENT: normocephalic atraumatic Neck: supple, symmetric, no JVD Heart: RRR Respiratory: no wheezes, no rales, no ronchi, normal chest expansion Gastrointestinal: soft, non-tender, non-distended, normal bowel sounds Extremities: no cyanosis, no edema Neurological: cranial nerve grossly intact, no focal deficits Psychiatric: normal affect, A&O x 3 Hosp A/P (1) Bladder cancer Status: Acute (2) Iron deficiency anemia due to chronic blood loss Code(s): D50.0 - IRON DEFICIENCY ANEMIA SECONDARY TO BLOOD LOSS (CHRONIC) Status: Acute (3) Chronic blood loss anemia Code(s): D50.0 - IRON DEFICIENCY ANEMIA SECONDARY TO BLOOD LOSS (CHRONIC) Status: Acute (4) GERD (gastroesophageal reflux disease) Code(s): K21.9 - GASTRO-ESOPHAGEAL REFLUX DISEASE WITHOUT ESOPHAGITIS Status: Acute (5) Tobacco abuse disorder Code(s): Z72.0 - TOBACCO USE Status: Acute (6) Gross hematuria Status: Acute (7) Acute urinary retention Code(s): R33.8 - OTHER RETENTION OF URINE Status: Acute (8) Metabolic acidosis Code(s): E87.2 - ACIDOSIS Status: Acute (9) Hypokalemia Code(s): E87.6 - HYPOKALEMIA Status: Acute (10) Dilation of biliary tract Code(s): K83.8 - OTHER SPECIFIED DISEASES OF BILIARY TRACT Status: Acute (11) Cholecystitis Code(s): K81.9 - CHOLECYSTITIS, UNSPECIFIED Status: Suspected - Plan Continue antibiotics Get HIDA scan Continue PPI. Diet as tolerated. SCD for DVT prophylaxis Await bladder mass pathology. cystectomy contemplated.
--- NOTE | 2019-09-24 18:04 | PDOC.CPN ---
- Subjective Date: 09/24/19 Time: 18:03 Interval history: She is doing well. Denies any chest pain, tightness, pressure, SOB. - Review of Systems General: denies: fever/chills, weight/appetite/sleep changes, night sweats, fatigue Respiratory: denies: cough, congestion, shortness of breath, exercise intolerance Cardiovascular: denies: chest pain, palpitation, edema, paroxysmal nocturnal dyspnea, orthopnea Gastrointestinal: denies: nausea, vomiting, diarrhea, constipation, abd pain, GI bleeding Musculoskeletal: denies: pain, tenderness, stiffness, swelling, arthritis/ arthralgias Neurological: denies: numbness, syncope, seizure, weakness - Objective Allergies/Adverse Reactions: Allergies Allergy/AdvReac Type Severity Reaction Status Date / Time aspirin Allergy Verified 09/24/19 16:54 Visit Medications: Current Medications Acetaminophen (Tylenol) 650 mg PO Q4H PRN PRN Reason: Headache/Fever/Mild Pain (1-3) Last Admin: 09/22/19 16:51 Dose: 650 mg Hydrocodone Bitart/Acetaminophen ([place]ius 5/325) 1 tab PO Q4H PRN PRN Reason: Moderate Pain (4-6) Last Admin: 09/24/19 15:30 Dose: 1 tab Bisacodyl (Dulcolax) 10 mg FL DAILYPRN PRN PRN Reason: Constipation Docusate Sodium (Colace) 100 mg PO BID [facility] Last Admin: 09/24/19 10:00 Dose: Not Given Hyoscyamine Sulfate (Levsin Sl) 0.25 mg SL Q6HR [facility] Last Admin: 09/24/19 12:45 Dose: 0.25 mg Levofloxacin 500 mg/ Device 100 mls @ 100 mls/hr IVPB ONCALL-OR DEMETRIO Levofloxacin 500 mg/ Device 100 mls @ 100 mls/hr IVPB 1800 [facility] Last Admin: 09/23/19 18:01 Dose: 100 mls Ferric Sodium Gluconate Complex 250 mg/ Sodium Chloride 120 mls @ 60 mls/hr IVPB DAILY [facility] Stop: 09/25/19 09:01 Last Admin: 09/24/19 11:15 Dose: 120 mls Lorazepam (Ativan) 1 mg SLOW IVP Q4H PRN PRN Reason: Anxiety/Agitation Last Admin: 09/21/19 22:23 Dose: 1 mg Morphine Sulfate (Morphine) 2 mg SLOW IVP Q2H PRN PRN Reason: Moderate Pain (4-6) Last Admin: 09/23/19 14:00 Dose: 2 mg Morphine Sulfate (Morphine) 4 mg SLOW IVP Q2H PRN PRN Reason: Severe Pain (7-10) Last Admin: 09/22/19 09:21 Dose: 4 mg Nicotine (Nicoderm Patch) 14 mg TD Q24HR [facility] Last Admin: 09/24/19 15:30 Dose: 14 mg Ondansetron HCl (Zofran Odt) 4 mg PO Q6H PRN PRN Reason: Nausea/Vomiting Last Admin: 09/21/19 16:26 Dose: 4 mg Ondansetron HCl (Zofran) 4 mg IVP Q6H PRN PRN Reason: Nausea/Vomiting Last Admin: 09/22/19 12:13 Dose: 4 mg Pantoprazole Sodium (Protonix) 40 mg PO DAILY [facility] Last Admin: 09/24/19 10:00 Dose: Not Given Ropinirole HCl (Requip) 0.25 mg PO HS [facility] Last Admin: 09/23/19 20:57 Dose: 0.25 mg Senna/Docusate Sodium (Senokot S) 2 tab PO BIDPRN PRN PRN Reason: Constipation Sodium Chloride (Flush - Normal Saline) 10 ml IVF PRN PRN PRN Reason: Saline Flush Last Admin: 09/23/19 18:01 Dose: 10 ml Vital Signs & Weight: Vital Signs Temp Pulse Resp BP Pulse Ox 09/24/19 15:23 97.9 F 72 14 135/65 97 09/24/19 11:00 97.9 F 75 18 131/83 99 09/24/19 10:55 96 09/24/19 07:48 97.9 F 64 18 134/81 96 Admit Weight 167 lb Weight 167 lb 8 oz - Physical Exam General: alert & oriented x3 HEENT: mucus membranes moist Neck: supple neck Cardiac: regular rate and rhythm, no murmur Lungs: clear to auscultation Neuro: grossly intact Abdomen: active bowel sounds, soft, non-tender Extremities: no edema Skin: clear Musculoskeletal: no pain - Labs Result Diagrams: 09/24/19 04:02 09/24/19 04:02 Troponin/CKMB Troponin I Less than 0.010 ng/mL (< 0.028) 09/22/19 13:35 - Assessment/Plan Assessment/Plan: 1. Preoperative evaluation. 2. Bladder mass. PLAN: - She had a normal stress test today and unremarkable echo. - May proceed with surgical procedure. Intermediate risk for intermediate risk procedure. - Will sign off. Please call with any questions.
[2019-09-24] MEDS: rOPINIRole HCl 0.25 MG TAB PO SCH (19:43)
[2019-09-25] MEDS ORDERED: diphenhydrAMINE 25 MG CAP PO PRN (01:02)
[2019-09-25] MEDS: HYDROcodone/Acetaminophen 5/325 mg Tablet PO PRN ×4 (04:08→23:02)
[2019-09-25] MEDS: Morphine 4 MG/ML VIAL SLOW IVP PRN (04:11)
[2019-09-25] MEDS: Hyoscyamine Sulfate SL 0.125 mg Tablet SL SCH ×4 (06:27→23:02)
[2019-09-25] MEDS: Docusate 100 MG CAP PO SCH ×2 (08:09→19:55)
--- NOTE | 2019-09-25 08:19 | PRG ---
DATE OF SERVICE: 09/25/2019 SUBJECTIVE: The patient without complaints. OBJECTIVE: VITAL SIGNS: Vital signs are stable. I's and O's; urine output 4480 and 2580. Urine color is clear yellow. ABDOMEN: No rigidity. No rebound. No suprapubic tenderness appreciated. LABORATORY DATA: No new labs. Yesterday, her H and H, BMP is stable. Pathology is pending. Echocardiogram, stress test results reviewed. Appreciate Cardiology input. IMPRESSION AND PLAN: 1. A 54-year-old female with history of significant tobacco abuse, presented with critical anemia due to large bladder tumor, clot retention, status post TURBT, postop day #4. Pathology is pending. Urine output remains clear. Hemoglobin and hematocrit are stable. 2. History of tobacco abuse. Appreciate Cardiology eval, clearance in chart with normal stress echocardiogram. 3. Abnormal abdominal ultrasound, epigastric pain. HIDA scan is pending. Pending review of pathology, discussed with the patient and family regarding bone scan for further staging. patient remained surgically stable. Job ID: [id number] [facility]
[2019-09-25] MEDS: Iron, Sodium Ferric Gluconate 250 MG in Sodium Chloride 0.9% 100 ML IVPB SCH (09:04)
[2019-09-25] MEDS: Morphine 2 MG/ML SYRINGE SLOW IVP PRN ×2 (11:12→19:55)
--- NOTE | 2019-09-25 14:40 | PDOC.HOSPP ---
- Subjective Encounter Date: 09/25/19 Encounter Time: 14:38 Subjective: 54 y/o female with bladder mass associated with chronic hematuria, GERD and tobacco abuse disorder admitted with difficulty urination. Found to have gross hematuria on passage of catheter as well as severe anemia with Hb of 3. Transfused and subsequently taken to oral for cystoscopy and transurethral resection of bladder mass. Had nuclear stress and echo in preop cardiac eval which were unremarkable. No new problem. - Objective Vital Signs & Weight: Vital Signs (12 hours) Temp Pulse Resp BP Pulse Ox 09/25/19 12:00 98.2 F 66 14 158/91 H 96 09/25/19 08:00 98.1 F 71 12 163/88 H 100 09/25/19 03:36 98.3 F 82 18 167/79 H 97 Weight Admit Weight 167 lb Weight 167 lb 8 oz Most Recent Monitor Data Heart Rate from ECG 72 NIBP 120/80 NIBP BP-Mean 93 Respiration from ECG 16 SpO2 96 I&O: 09/24/19 09/25/19 09/26/19 06:59 06:59 06:59 Intake Total 1710 2580 Output Total 3575 4450 Balance -1865 -1870 Result Diagrams: 09/24/19 04:02 09/24/19 04:02 Hospitalist ROS - Medication Medications: Active Medications Generic Name Dose Route Start Last Admin Trade Name Freq PRN Reason Stop Dose Admin Acetaminophen 650 mg 09/21/19 15:31 09/22/19 16:51 Tylenol PO 650 mg Q4H PRN Administration Headache/Fever/Mild Pain (1-3) Hydrocodone Bitart/Acetaminophen 1 tab 09/21/19 15:31 09/25/19 08:04 [place] 5/325 PO 1 tab Q4H PRN Administration Moderate Pain (4-6) Diphenhydramine HCl 25 mg 09/25/19 01:02 09/25/19 02:15 Benadryl PO 25 mg Q6H PRN Administration Itching & Insomnia Docusate Sodium 100 mg 09/21/19 21:00 09/25/19 08:09 Colace PO 100 mg BID DEMETRIO Administration Hyoscyamine Sulfate 0.25 mg 09/21/19 23:59 09/25/19 11:58 Levsin Sl SL 0.25 mg Q6HR DEMETRIO Administration Levofloxacin 500 mg/ Device 100 mls @ 100 mls/hr 09/22/19 18:00 09/24/19 18: 30 IVPB 100 mls 1800 DEMETRIO Administration Lorazepam 1 mg 09/21/19 21:10 09/21/19 22:23 Ativan SLOW IVP 1 mg Q4H PRN Administration Anxiety/Agitation Morphine Sulfate 2 mg 09/21/19 19:33 09/25/19 11:12 Morphine SLOW IVP 2 mg Q2H PRN Administration Moderate Pain (4-6) Morphine Sulfate 4 mg 09/21/19 19:33 09/25/19 04:11 Morphine SLOW IVP 4 mg Q2H PRN Administration Severe Pain (7-10) Nicotine 14 mg 09/21/19 16:00 09/24/19 15:30 Nicoderm Patch TD 14 mg Q24HR DEMETRIO Administration Ondansetron HCl 4 mg 09/21/19 15:31 09/21/19 16:26 Zofran Odt PO 4 mg Q6H PRN Administration Nausea/Vomiting Ondansetron HCl 4 mg 09/21/19 15:31 09/22/19 12:13 Zofran IVP 4 mg Q6H PRN Administration Nausea/Vomiting Pantoprazole Sodium 40 mg 09/22/19 09:00 09/25/19 08:09 Protonix PO 40 mg DAILY DEMETRIO Administration Ropinirole HCl 0.25 mg 09/23/19 21:00 09/24/19 19:43 Requip PO 0.25 mg HS DEMETRIO Administration Sodium Chloride 10 ml 09/21/19 19:33 09/23/19 18:01 Flush - Normal Saline IVF 10 ml PRN PRN Administration Saline Flush - Exam General Appearance: awake alert Eye: anicteric sclera ENT: normocephalic atraumatic Neck: supple Heart: RRR Respiratory: no wheezes, no rales, no ronchi, normal chest expansion Gastrointestinal: soft, non-tender, non-distended, normal bowel sounds Gastrointestinal - other findings: Sawyer catheter in place Extremities: no cyanosis, no edema Neurological: cranial nerve grossly intact, no focal deficits Psychiatric: A&O x 3 Hosp A/P (1) Bladder cancer Status: Acute (2) Iron deficiency anemia due to chronic blood loss Code(s): D50.0 - IRON DEFICIENCY ANEMIA SECONDARY TO BLOOD LOSS (CHRONIC) Status: Acute (3) Chronic blood loss anemia Code(s): D50.0 - IRON DEFICIENCY ANEMIA SECONDARY TO BLOOD LOSS (CHRONIC) Status: Acute (4) GERD (gastroesophageal reflux disease) Code(s): K21.9 - GASTRO-ESOPHAGEAL REFLUX DISEASE WITHOUT ESOPHAGITIS Status: Acute (5) Tobacco abuse disorder Code(s): Z72.0 - TOBACCO USE Status: Acute (6) Gross hematuria Status: Acute (7) Acute urinary retention Code(s): R33.8 - OTHER RETENTION OF URINE Status: Acute (8) Metabolic acidosis Code(s): E87.2 - ACIDOSIS Status: Acute (9) Hypokalemia Code(s): E87.6 - HYPOKALEMIA Status: Acute (10) Dilation of biliary tract Code(s): K83.8 - OTHER SPECIFIED DISEASES OF BILIARY TRACT Status: Acute (11) Cholecystitis Code(s): K81.9 - CHOLECYSTITIS, UNSPECIFIED Status: Suspected - Plan Continue antibiotics For HIDA scan tomorrow Continue PPI. Diet as tolerated. SCD for DVT prophylaxis Await bladder mass pathology. Cystectomy contemplated. Get CMP and cbc in the am.
[2019-09-25] MEDS: Nicotine 14 MG PATCH TD SCH (16:02)
[2019-09-25] MEDS: rOPINIRole HCl 0.25 MG TAB PO SCH (19:55)
[2019-09-26] MEDS: Morphine 4 MG/ML VIAL SLOW IVP PRN ×3 (02:47→12:54)
[2019-09-26] MEDS: HYDROcodone/Acetaminophen 5/325 mg Tablet PO PRN ×3 (04:31→20:45)
[2019-09-26 05:17] LABS: #Basophils 0.1 thou/uL (0.0-0.2); #Eosinphils 0.7 thou/uL (0.0-0.7); #Lymphocytes 3.1 thou/uL (1.20-3.40); #Monocytes 1.1 thou/uL (0.11-0.59); #Neutrophils 8.4 thou/uL (1.40-6.50); %Basophils 0.7 % (0.0-1.0); %Eosinophils 5.1 % (0.0-10.0); %Monocytes 8.3 % (0.0-10.0); Hemoglobin 9.6 g/dL (12.0-16.0); Mean Corpuscular HGB CONC 32.3 g/dL (32.0-36.0); Mean Corpuscular Hemoglobin 29.1 pg (27.0-31.0); Mean Corpuscular Volume 90.1 fL (78.0-98.0); Mean Platelet Volume 8.6 fL (7.4-10.4); Platelet Count 402 thou/uL (130-400); RBC Distribution Width 19.9 % (11.5-14.5); Red Blood Cell (RBC) Count 3.28 mill/uL (4.20-5.40); White Blood Cell (WBC) Count 13.4 thou/uL (4.8-10.8)
[2019-09-26] MEDS: Hyoscyamine Sulfate SL 0.125 mg Tablet SL SCH ×4 (05:24→23:37)
[2019-09-26 05:42] LABS: ALT (SGPT) 8 U/L (8-55); AST (SGOT) 14 U/L (5-34); Albumin 3.6 g/dL (3.5-5.0); Alkaline Phosphatase 108 U/L (40-110); Anion Gap 13 mmol/L (10-20); BUN (Urea Nitrogen) 8 mg/dL (9.8-20.1); Bilirubin, Total 0.2 mg/dL (0.2-1.2); Calc. Creatinine Clearance 94 mL/min (70-130); Carbon Dioxide 25 mmol/L (22-29); Chloride 105 mmol/L (98-107); Estimated GFR-MDRD 71; Globulin 2.8 g/dL (2.4-3.5); Glucose 90 mg/dL (70-105); Potassium 4.1 mmol/L (3.5-5.1); Protein, Total 6.4 g/dL (6.0-8.3); Sodium 139 mmol/L (136-145)
[2019-09-26] MEDS: Docusate 100 MG CAP PO SCH ×2 (08:46→20:44)
--- NOTE | 2019-09-26 08:59 | PRG ---
DATE OF SERVICE: 09/26/2019 SUBJECTIVE: The patient without complaints, awaiting HIDA scan. OBJECTIVE: VITAL SIGNS: Stable. I's and O's 1700 in and 4400 out. ABDOMEN: Soft, no rigidity, no rebound. As previous, midline laparotomy within the superior aspect of the incision demonstrating small incisional hernia. Urine output is clear yellow. PERTINENT LABORATORY DATA: White count 13, hemoglobin stable at 9.6, admitting hemoglobin is 3.5, and platelets 402. Coags normal. Renal function stable at 0.8. LFTs are grossly unremarkable. IMPRESSION AND PLAN: 1. A 54-year-old female with history of significant tobacco abuse, presented with critical anemia due to large bladder tumor, clot retention, admitting hemoglobin of 3.5, postop day #5, status post cystoscopy, transurethral resection of a bladder tumour. Pathology is still pending. Her CBC, H and H are stable. Cardiac clearance in chart, status post stress test, echocardiogram. 2. Epigastric pain, HIDA scan is pending today. Await pathology, which should finalize in the next day or two. Pending final pathology, bone scan will be ordered ideally in-house. Anticipate the patient could be discharged sometime in the end of the week after complete workup. Job ID: [id number] MTDD
--- NOTE | 2019-09-26 12:44 | NM ---
HEPATOBILIARY SCAN: HISTORY: Abdominal pain. No gallstones on gallbladder ultrasound of 09/14/19. RADIOPHARMACEUTICAL: 5.5 mCi technetium-99m mebrofenin injected intravenously. CCK-8: The patient was pretreated with 1.5 mcg of CCK-8 intravenously 30 minutes prior to the injection of t he radiopharmaceutical. A second dose of 1.5 mcg were injected 60 minutes after the injection of a ra diopharmaceutical as a 30 minute infusion to evaluate gallbladder contractility. FINDINGS: There is good tracer extraction by the liver with prompt excretion into the biliary tract and small b owel loops, and normal filling of the gallbladder. The calculated gallbladder ejection fraction following CCK-8 administration measures 20%. IMPRESSION: Findings are consistent with chronic acalculous cholecystitis/gallbladder dyskinesia. POS: SARAH
[2019-09-26] MEDS: Nicotine 14 MG PATCH TD SCH (16:03)
[2019-09-26] MEDS: Morphine 2 MG/ML SYRINGE SLOW IVP PRN ×2 (17:33→21:28)
--- NOTE | 2019-09-26 20:08 | PDOC.HOSPP ---
- Subjective Encounter Date: 09/26/19 Encounter Time: 20:06 Subjective: 54 y/o female with bladder mass associated with chronic hematuria, GERD and tobacco abuse disorder admitted with difficulty urination. Found to have gross hematuria on passage of catheter as well as severe anemia with Hb of 3. Transfused and subsequently taken to oral for cystoscopy and transurethral resection of bladder mass. Had nuclear stress and echo in preop cardiac eval which were unremarkable. HIDA earlier today showed features of cholecystitis. No BM since admission. - Objective Vital Signs & Weight: Vital Signs (12 hours) Temp Pulse Resp BP Pulse Ox 09/26/19 19:36 98.6 F 72 16 127/75 96 09/26/19 15:35 98.2 F 77 14 113/67 97 09/26/19 12:25 98.5 F 73 18 146/91 H 98 09/26/19 08:25 94 L Weight Admit Weight 167 lb Weight 167 lb 8 oz Most Recent Monitor Data Heart Rate from ECG 72 NIBP 120/80 NIBP BP-Mean 93 Respiration from ECG 16 SpO2 96 I&O: 09/25/19 09/26/19 09/27/19 06:59 06:59 06:59 Intake Total 2580 1700 1330 Output Total 4450 4400 1275 Balance -1870 -2700 55 Result Diagrams: 09/26/19 04:12 09/26/19 04:12 Hospitalist ROS - Medication Medications: Active Medications Generic Name Dose Route Start Last Admin Trade Name Freq PRN Reason Stop Dose Admin Acetaminophen 650 mg 09/21/19 15:31 09/22/19 16:51 Tylenol PO 650 mg Q4H PRN Administration Headache/Fever/Mild Pain (1-3) Hydrocodone Bitart/Acetaminophen 1 tab 09/21/19 15:31 09/26/19 14:46 [place] 5/325 PO 1 tab Q4H PRN Administration Moderate Pain (4-6) Diphenhydramine HCl 25 mg 09/25/19 01:02 09/25/19 02:15 Benadryl PO 25 mg Q6H PRN Administration Itching & Insomnia Docusate Sodium 100 mg 09/21/19 21:00 09/26/19 08:46 Colace PO Not Given BID DEMETRIO Hyoscyamine Sulfate 0.25 mg 09/21/19 23:59 09/26/19 17:32 Levsin Sl SL 0.25 mg Q6HR DEMETRIO Administration Levofloxacin 500 mg/ Device 100 mls @ 100 mls/hr 09/22/19 18:00 09/26/19 17: 52 IVPB 100 mls 1800 DEMETRIO Administration Lorazepam 1 mg 09/21/19 21:10 09/21/19 22:23 Ativan SLOW IVP 1 mg Q4H PRN Administration Anxiety/Agitation Morphine Sulfate 2 mg 09/21/19 19:33 09/26/19 17:33 Morphine SLOW IVP 2 mg Q2H PRN Administration Moderate Pain (4-6) Morphine Sulfate 4 mg 09/21/19 19:33 09/26/19 12:54 Morphine SLOW IVP 4 mg Q2H PRN Administration Severe Pain (7-10) Nicotine 14 mg 09/21/19 16:00 09/26/19 16:03 Nicoderm Patch TD 14 mg Q24HR DEMETRIO Administration Ondansetron HCl 4 mg 09/21/19 15:31 09/21/19 16:26 Zofran Odt PO 4 mg Q6H PRN Administration Nausea/Vomiting Ondansetron HCl 4 mg 09/21/19 15:31 09/22/19 12:13 Zofran IVP 4 mg Q6H PRN Administration Nausea/Vomiting Pantoprazole Sodium 40 mg 09/22/19 09:00 09/26/19 08:46 Protonix PO Not Given DAILY DEMETRIO Ropinirole HCl 0.25 mg 09/23/19 21:00 09/25/19 19:55 Requip PO 0.25 mg HS DEMETRIO Administration Sodium Chloride 10 ml 09/21/19 19:33 09/23/19 18:01 Flush - Normal Saline IVF 10 ml PRN PRN Administration Saline Flush - Exam General Appearance: awake alert Eye: anicteric sclera ENT: normocephalic atraumatic Neck: supple, symmetric, no JVD Heart: RRR Respiratory: no wheezes, no rales, no ronchi, normal chest expansion Gastrointestinal: soft, non-distended, normal bowel sounds Gastrointestinal - other findings: right lower quadrant tenderness Extremities: no edema Neurological: cranial nerve grossly intact, no focal deficits Psychiatric: normal affect, A&O x 3 Hosp A/P (1) Bladder cancer Status: Acute (2) Cholecystitis Code(s): K81.9 - CHOLECYSTITIS, UNSPECIFIED Status: Chronic (3) Iron deficiency anemia due to chronic blood loss Code(s): D50.0 - IRON DEFICIENCY ANEMIA SECONDARY TO BLOOD LOSS (CHRONIC) Status: Acute (4) Chronic blood loss anemia Code(s): D50.0 - IRON DEFICIENCY ANEMIA SECONDARY TO BLOOD LOSS (CHRONIC) Status: Acute (5) GERD (gastroesophageal reflux disease) Code(s): K21.9 - GASTRO-ESOPHAGEAL REFLUX DISEASE WITHOUT ESOPHAGITIS Status: Acute (6) Tobacco abuse disorder Code(s): Z72.0 - TOBACCO USE Status: Acute (7) Gross hematuria Status: Acute (8) Acute urinary retention Code(s): R33.8 - OTHER RETENTION OF URINE Status: Acute (9) Metabolic acidosis Code(s): E87.2 - ACIDOSIS Status: Acute (10) Hypokalemia Code(s): E87.6 - HYPOKALEMIA Status: Acute (11) Dilation of biliary tract Code(s): K83.8 - OTHER SPECIFIED DISEASES OF BILIARY TRACT Status: Acute (12) Constipation Code(s): K59.00 - CONSTIPATION, UNSPECIFIED Status: Acute - Plan Continue antibiotics Start miralax Continue PPI. Diet as tolerated. SCD for DVT prophylaxis Awaiting Urology re evaluation in view of pathology report Consult Gen surg Re : chronic acalculous cholecystitis..
[2019-09-26] MEDS ORDERED: Polyethylene Glycol 3350 17 GM Packet PO SCH (20:15)
[2019-09-26] MEDS: rOPINIRole HCl 0.25 MG TAB PO SCH (20:46)
[2019-09-27] MEDS: HYDROcodone/Acetaminophen 5/325 mg Tablet PO PRN ×3 (00:58→09:31)
[2019-09-27] MEDS: Hyoscyamine Sulfate SL 0.125 mg Tablet SL SCH ×4 (05:26→23:34)
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
[2019-09-27] MEDS: Polyethylene Glycol 3350 17 GM Packet PO SCH (08:59)
[2019-09-27] MEDS: Docusate 100 MG CAP PO SCH ×2 (08:59→20:58)
[2019-09-27] MEDS ORDERED: traMADol HCl 50 MG TAB PO PRN (10:05)
[2019-09-27] MEDS ORDERED: Ibuprofen 600 MG TAB PO PRN (10:05)
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
[2019-09-27] MEDS: traMADol HCl 50 MG TAB PO PRN ×2 (11:08→18:28)
[2019-09-27] MEDS: Acetaminophen 500 MG TAB PO PRN (12:38)
--- NOTE | 2019-09-27 12:54 | PDOC.HOSPP ---
- Subjective Encounter Date: 09/27/19 Encounter Time: 12:53 Subjective: 54 y/o female with bladder mass associated with chronic hematuria, GERD and tobacco abuse disorder admitted with difficulty urination. Found to have gross hematuria on passage of catheter as well as severe anemia with Hb of 3. Transfused and subsequently taken to oral for cystoscopy and transurethral resection of bladder mass. Had nuclear stress and echo in preop cardiac eval which were unremarkable. Abdominal US obtained for post prandial abdominal discomfort was suggestive of cholecystitis which was confirmed by HIDA scan. cholecystitis is planneed for tomorrow. - Objective Vital Signs & Weight: Vital Signs (12 hours) Temp Pulse Resp BP Pulse Ox 09/27/19 12:04 97.5 F L 63 16 139/75 97 09/27/19 08:00 98.3 F 70 16 128/73 96 09/27/19 03:56 98.4 F 70 18 120/67 94 L Weight Admit Weight 167 lb Weight 167 lb 8 oz Most Recent Monitor Data Heart Rate from ECG 72 NIBP 120/80 NIBP BP-Mean 93 Respiration from ECG 16 SpO2 96 I&O: 09/26/19 09/27/19 09/28/19 06:59 06:59 06:59 Intake Total 1700 1930 Output Total 4400 3250 Balance -2700 -1320 Result Diagrams: 09/26/19 04:12 09/26/19 04:12 Hospitalist ROS - Medication Medications: Active Medications Generic Name Dose Route Start Last Admin Trade Name Freq PRN Reason Stop Dose Admin Acetaminophen 1,000 mg 09/27/19 10:05 09/27/19 12:38 Tylenol PO 1,000 mg Q6H PRN Administration Moderate to Severe Pain (6-10) Diphenhydramine HCl 25 mg 09/25/19 01:02 09/25/19 02:15 Benadryl PO 25 mg Q6H PRN Administration Itching & Insomnia Docusate Sodium 100 mg 09/21/19 21:00 09/27/19 08:59 Colace PO 100 mg BID DEMETRIO Administration Hyoscyamine Sulfate 0.25 mg 09/21/19 23:59 09/27/19 11:08 Levsin Sl SL 0.25 mg Q6HR DEMETRIO Administration Levofloxacin 500 mg/ Device 100 mls @ 100 mls/hr 09/22/19 18:00 09/26/19 17: 52 IVPB 100 mls 1800 DEMETRIO Administration Lorazepam 1 mg 09/21/19 21:10 09/21/19 22:23 Ativan SLOW IVP 1 mg Q4H PRN Administration Anxiety/Agitation Morphine Sulfate 2 mg 09/21/19 19:33 09/26/19 21:28 Morphine SLOW IVP 2 mg Q2H PRN Administration Moderate Pain (4-6) Morphine Sulfate 4 mg 09/21/19 19:33 09/26/19 12:54 Morphine SLOW IVP 4 mg Q2H PRN Administration Severe Pain (7-10) Ondansetron HCl 4 mg 09/21/19 15:31 09/21/19 16:26 Zofran Odt PO 4 mg Q6H PRN Administration Nausea/Vomiting Ondansetron HCl 4 mg 09/21/19 15:31 09/22/19 12:13 Zofran IVP 4 mg Q6H PRN Administration Nausea/Vomiting Pantoprazole Sodium 40 mg 09/22/19 09:00 09/27/19 08:59 Protonix PO 40 mg DAILY DEMETRIO Administration Polyethylene Glycol 17 gm 09/27/19 09:00 09/27/19 08:59 Miralax PO 17 gm DAILY DEMETRIO Administration Ropinirole HCl 0.25 mg 09/23/19 21:00 09/26/19 20:46 Requip PO 0.25 mg HS DEMETRIO Administration Sodium Chloride 10 ml 09/21/19 19:33 09/23/19 18:01 Flush - Normal Saline IVF 10 ml PRN PRN Administration Saline Flush Tramadol HCl 100 mg 09/27/19 10:05 09/27/19 11:08 Ultram PO 100 mg Q6H PRN Administration Moderate to Severe Pain (6-10) - Exam General Appearance: awake alert Eye: anicteric sclera ENT: normocephalic atraumatic Neck: symmetric, no JVD Heart: RRR Respiratory: no wheezes, no rales, no ronchi, normal chest expansion Gastrointestinal: soft, non-distended, normal bowel sounds Gastrointestinal - other findings: mild RUQ tenderness Extremities: no cyanosis, no edema Neurological: cranial nerve grossly intact, no focal deficits Psychiatric: normal affect, A&O x 3 Hosp A/P (1) Bladder cancer Status: Acute (2) Cholecystitis Code(s): K81.9 - CHOLECYSTITIS, UNSPECIFIED Status: Chronic (3) Iron deficiency anemia due to chronic blood loss Code(s): D50.0 - IRON DEFICIENCY ANEMIA SECONDARY TO BLOOD LOSS (CHRONIC) Status: Acute (4) Chronic blood loss anemia Code(s): D50.0 - IRON DEFICIENCY ANEMIA SECONDARY TO BLOOD LOSS (CHRONIC) Status: Acute (5) GERD (gastroesophageal reflux disease) Code(s): K21.9 - GASTRO-ESOPHAGEAL REFLUX DISEASE WITHOUT ESOPHAGITIS Status: Acute (6) Tobacco abuse disorder Code(s): Z72.0 - TOBACCO USE Status: Acute (7) Gross hematuria Status: Acute (8) Acute urinary retention Code(s): R33.8 - OTHER RETENTION OF URINE Status: Acute (9) Metabolic acidosis Code(s): E87.2 - ACIDOSIS Status: Acute (10) Hypokalemia Code(s): E87.6 - HYPOKALEMIA Status: Acute (11) Dilation of biliary tract Code(s): K83.8 - OTHER SPECIFIED DISEASES OF BILIARY TRACT Status: Acute (12) Constipation Code(s): K59.00 - CONSTIPATION, UNSPECIFIED Status: Acute - Plan For cholecystectomy tomorrow Continue antibiotics Bone scan as per Urology. Restaging TURBT contemplated. Continue PPI. Diet as tolerated. SCD for DVT prophylaxis
[2019-09-27] MEDS: Nicotine 21 MG PATCH TOP SCH (14:59)
[2019-09-27] MEDS: Morphine 2 MG/ML SYRINGE SLOW IVP PRN (14:59)
[2019-09-27] MEDS ORDERED: Iopamidol-370 76% 500 ML 1 ML ONE (15:04)
[2019-09-27] MEDS ORDERED: Nicotine 14 MG PATCH TD SCH (16:00)
[2019-09-27] MEDS: rOPINIRole HCl 0.25 MG TAB PO SCH (20:58)
--- NOTE | 2019-09-27 22:05 | CON ---
DATE OF CONSULTATION: 09/27/2019 REASON FOR CONSULTATION: Right upper quadrant abdominal pain. CONSULTING PROVIDER: Dr. Fish Davila. HISTORY OF PRESENT ILLNESS: The patient is a 54-year-old female with past medical history of hypertension, hyperlipidemia, GERD, tobacco abuse, and bladder tumor, who was initially presented to the hospital with complaints of hematuria. She was initially admitted to the hospitalist service on September 21, 2019, with significant hematuria and has been undergoing workup related to continued bladder mass and surgical procedures related to it. However, she also describes increased midepigastric/right upper quadrant pain that has been present for the last week that she characterizes as a burning-type pain. It is intermittent and occurs primarily with food intake. It is nonradiating from the right upper quadrant and reaches a severity of 10/10. This pain will primarily occur with ingestion of either solids or liquids. It will occur within seconds after ingestion of these food stuffs. It will last for approximately 1-2 minutes and then spontaneously subside. The pain is worse with eating and drinking only, better with leaning back and pressure to the right upper quadrant. She endorses increased nausea and subjective chills over the last week as well, but denies any actual vomiting, fever, melena, hematochezia, dysphagia, or odynophagia. Of note, during the course of this hospitalization, the patient underwent a HIDA scan, which revealed a 20% gallbladder ejection fraction as well as a contracted gallbladder concerning for cholecystitis. She is scheduled for laparoscopic cholecystectomy tomorrow morning. REVIEW OF SYSTEMS: A 10-category review of systems was obtained with all responses negative except for the pertinent positives as listed in HPI. PAST MEDICAL HISTORY: As per HPI. PAST SURGICAL HISTORY: Splenectomy, ORIF of her left leg. FAMILY HISTORY: Denies any GI malignancies. SOCIAL HISTORY: Denies any illicit drug use. She will drink approximately 1 alcoholic beverage every 1 to 2 weeks, but was smoking approximately 1 pack per day up until about a week ago when admitted to the hospital. OUTPATIENT MEDICATIONS: Aspirin and Requip. ALLERGIES: ASPIRIN. PHYSICAL EXAMINATION: VITAL SIGNS: Temperature 98.1, pulse 69, blood pressure 141/83, respiratory rate 18, saturating 95% on room air. GENERAL: The patient was lying in bed, in no acute distress. Alert and oriented x4. NECK: Supple. No JVD or scleral icterus noted. HEENT: Normocephalic, atraumatic. CARDIOVASCULAR: Regular rate and rhythm with no discernible murmurs, gallops, or rubs. RESPIRATORY: Clear to auscultation bilaterally with no discernible wheezes or rales. ABDOMEN: Normoactive bowel sounds. Soft, nondistended. Tenderness to palpation in the right upper quadrant only. EXTREMITIES: No cyanosis, clubbing, or edema. LABORATORY DATA: CBC with a white blood cell count of 13.4, hemoglobin 9.6, hematocrit 29.6, platelets 402. Chemistry with a sodium of 139, potassium 4.1, chloride 105, CO2 of 25, BUN 8, creatinine 0.84, glucose 90, AST 14, ALT 8, alkaline phosphatase 108, total bilirubin 0.2, iron 9, ferritin less than 2, TIBC 396. IMAGING DATA: Abdominal ultrasound was obtained on September 24, 2019, which showed heterogeneous echotexture to the hepatic parenchyma, which could be due to hepatic steatosis or hepatocellular disease. There was a small amount of pericholecystic fluid with the gallbladder wall thickened at 2.5 cm. There was no sonographic evidence of cholelithiasis and there was also a negative Graham sign. The common bile duct measured approximately 7 mm at that time. A HIDA scan was obtained on September 26, 2019, which showed good tracer extraction by the liver with prompt excretion into the biliary tract, but an ejection fraction with CCK measuring 20% consistent with chronic acalculous cholecystitis/gallbladder dyskinesia. ASSESSMENT AND PLAN: The patient is a 54-year-old female with past medical history of hypertension, hyperlipidemia, gastroesophageal reflux disease, tobacco abuse, and a bladder mass, presenting with right upper quadrant abdominal pain and imaging consistent with cholecystitis. Right upper quadrant abdominal pain/cholecystitis. The patient is presenting with increased right upper quadrant abdominal pain that has been present for the last week and characterized as a burning-type pain that is primarily worsened with the rastafari of eating or drinking any food stuffs. She does have a significant history of nonsteroidal anti-inflammatory drugs use at home, taking both aspirin and ibuprofen on a more regular basis despite being given instructions not to do so given her renal function. At this time, however this is a very atypical presentation for peptic ulcer disease given that the pain is usually associated with increased pain with ingestion of foods, but will last for hours rather than minutes with spontaneous resolution. Given the findings of a thickened gallbladder wall, pericholecystic fluid and significantly reduced ejection fraction of the gallbladder, cholecystitis seems to be a more likely explanation for her right upper quadrant abdominal pain. However, differential could include duodenitis, peptic ulcer disease, gastritis, GERD, choledocholithiasis (much less likely given normal LFTs) and/or GI neoplasm (less likely). RECOMMENDATIONS: 1. I agree with General Surgery Service proceeding with laparoscopic cholecystectomy tomorrow as a more likely source of her right upper quadrant abdominal pain. 2. We will monitor the patient in the postoperative setting for resolution of her pain. If she continues to have right upper quadrant abdominal pain, I would then recommend EGD evaluation at that time. 3. We would continue the patient on pantoprazole 40 mg daily. 4. We will avoid any nonsteroidal anti-inflammatory drugs during this hospitalization given the possibility of peptic ulcer disease. 5. We will continue to follow. Please call with any questions. Job ID: [id number]
[2019-09-28 05:02] LABS: ALT (SGPT) 9 U/L (8-55); AST (SGOT) 20 U/L (5-34); Albumin 3.4 g/dL (3.5-5.0); Alkaline Phosphatase 98 U/L (40-110); Anion Gap 13 mmol/L (10-20); BUN (Urea Nitrogen) 10 mg/dL (9.8-20.1); Bilirubin, Total 0.3 mg/dL (0.2-1.2); Calc. Creatinine Clearance 91 mL/min (70-130); Calcium 8.9 mg/dL (7.8-10.44); Carbon Dioxide 22 mmol/L (22-29); Chloride 104 mmol/L (98-107); Estimated GFR-MDRD 68; Globulin 2.8 g/dL (2.4-3.5); Glucose 92 mg/dL (70-105); Potassium 4.5 mmol/L (3.5-5.1); Protein, Total 6.2 g/dL (6.0-8.3); Sodium 134 mmol/L (136-145)
[2019-09-28] MEDS ORDERED: Sodium Chloride 0.9% 1,000 ML IV SCH (05:30)
[2019-09-28] MEDS: Hyoscyamine Sulfate SL 0.125 mg Tablet SL SCH (05:38)
[2019-09-28] MEDS ORDERED: Fentanyl 100 MCG/2 ML VIAL ONE ×2 (05:59→08:21)
[2019-09-28 06:35] LABS: Hemoglobin 10.3 g/dL (12.0-16.0); Mean Corpuscular HGB CONC 32.3 g/dL (32.0-36.0); Mean Corpuscular Hemoglobin 29.4 pg (27.0-31.0); Mean Corpuscular Volume 91.1 fL (78.0-98.0); Mean Platelet Volume 8.9 fL (7.4-10.4); Platelet Count 370 thou/uL (130-400); RBC Distribution Width 19.2 % (11.5-14.5); Red Blood Cell (RBC) Count 3.51 mill/uL (4.20-5.40); White Blood Cell (WBC) Count 11.1 thou/uL (4.8-10.8)
[2019-09-28] MEDS ORDERED: Bupivacaine HCl 0.5%/Epinephrine 1:200,000/PF 30 ml Vial ONE (06:40)
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
[2019-09-28] MEDS: Docusate 100 MG CAP PO SCH (10:06)
[2019-09-28] MEDS: Polyethylene Glycol 3350 17 GM Packet PO SCH (10:06)
--- NOTE | 2019-09-28 10:10 | PDOC.HOSPP ---
- Subjective Encounter Date: 09/28/19 Encounter Time: 08:37 Subjective: 54 y/o female with bladder mass associated with chronic hematuria, GERD and tobacco abuse disorder admitted with difficulty urination. Found to have gross hematuria on passage of catheter as well as severe anemia with Hb of 3. Transfused and subsequently taken to oral for cystoscopy and transurethral resection of bladder mass. Had nuclear stress and echo in preop cardiac eval which were unremarkable. Abdominal US obtained for post prandial abdominal discomfort was suggestive of cholecystitis which was confirmed by HIDA scan. S/ p cholecystitis earlier today. awaiting bone scan. - Objective Vital Signs & Weight: Vital Signs (12 hours) Temp Pulse Resp BP Pulse Ox 09/28/19 03:36 98.2 F 78 18 116/74 100 09/27/19 23:38 98.3 F 73 18 132/78 97 Weight Admit Weight 167 lb Weight 167 lb 8 oz Most Recent Monitor Data Heart Rate from ECG 72 NIBP 120/80 NIBP BP-Mean 93 Respiration from ECG 16 SpO2 96 I&O: 09/27/19 09/28/19 09/29/19 06:59 06:59 06:59 Intake Total 1930 2300 Output Total 3250 3150 Balance -1320 -850 Result Diagrams: 09/28/19 06:12 09/28/19 04:17 Hospitalist ROS - Medication Medications: Active Medications Generic Name Dose Route Start Last Admin Trade Name Freq PRN Reason Stop Dose Admin Acetaminophen 1,000 mg 09/27/19 10:05 09/27/19 12:38 Tylenol PO 1,000 mg Q6H PRN Administration Moderate to Severe Pain (6-10) Diphenhydramine HCl 25 mg 09/25/19 01:02 09/25/19 02:15 Benadryl PO 25 mg Q6H PRN Administration Itching & Insomnia Docusate Sodium 100 mg 09/21/19 21:00 09/27/19 20:58 Colace PO 100 mg BID DEMETRIO Administration Hyoscyamine Sulfate 0.25 mg 09/21/19 23:59 09/28/19 05:38 Levsin Sl SL 0.25 mg Q6HR DEMETRIO Administration Levofloxacin 500 mg/ Device 100 mls @ 100 mls/hr 09/22/19 18:00 09/27/19 17: 57 IVPB 100 mls 1800 DEMETRIO Administration Sodium Chloride 1,000 mls @ 100 mls/hr 09/28/19 05:30 09/28/19 05:38 Normal Saline 0.9% IV 1,000 mls .Q10H DEMETRIO Administration Lorazepam 1 mg 09/21/19 21:10 09/21/19 22:23 Ativan SLOW IVP 1 mg Q4H PRN Administration Anxiety/Agitation Morphine Sulfate 2 mg 09/21/19 19:33 09/27/19 14:59 Morphine SLOW IVP 2 mg Q2H PRN Administration Moderate Pain (4-6) Morphine Sulfate 4 mg 09/21/19 19:33 09/26/19 12:54 Morphine SLOW IVP 4 mg Q2H PRN Administration Severe Pain (7-10) Nicotine 21 mg 09/27/19 16:00 09/27/19 14:59 Nicoderm Patch TOP 21 mg 1600 DEMETRIO Administration Ondansetron HCl 4 mg 09/21/19 15:31 09/21/19 16:26 Zofran Odt PO 4 mg Q6H PRN Administration Nausea/Vomiting Ondansetron HCl 4 mg 09/21/19 15:31 09/22/19 12:13 Zofran IVP 4 mg Q6H PRN Administration Nausea/Vomiting Pantoprazole Sodium 40 mg 09/22/19 09:00 09/27/19 08:59 Protonix PO 40 mg DAILY DEMETRIO Administration Polyethylene Glycol 17 gm 09/27/19 09:00 09/27/19 08:59 Miralax PO 17 gm DAILY DEMETRIO Administration Ropinirole HCl 0.25 mg 09/23/19 21:00 09/27/19 20:58 Requip PO 0.25 mg HS DEMETRIO Administration Sodium Chloride 10 ml 09/21/19 19:33 09/23/19 18:01 Flush - Normal Saline IVF 10 ml PRN PRN Administration Saline Flush Tramadol HCl 100 mg 09/27/19 10:05 09/27/19 18:28 Ultram PO 100 mg Q6H PRN Administration Moderate to Severe Pain (6-10) - Exam General Appearance: awake alert Eye: anicteric sclera ENT: normocephalic atraumatic Neck: symmetric, no JVD Heart: RRR Respiratory: no wheezes, no rales, no ronchi, normal chest expansion Gastrointestinal: soft, non-distended, normal bowel sounds Gastrointestinal - other findings: diffuse tenderness Extremities: no cyanosis, no edema Neurological: cranial nerve grossly intact, no focal deficits Psychiatric: normal affect, A&O x 3 Hosp A/P (1) Bladder cancer Status: Acute (2) Cholecystitis Code(s): K81.9 - CHOLECYSTITIS, UNSPECIFIED Status: Chronic (3) Iron deficiency anemia due to chronic blood loss Code(s): D50.0 - IRON DEFICIENCY ANEMIA SECONDARY TO BLOOD LOSS (CHRONIC) Status: Acute (4) Chronic blood loss anemia Code(s): D50.0 - IRON DEFICIENCY ANEMIA SECONDARY TO BLOOD LOSS (CHRONIC) Status: Acute (5) GERD (gastroesophageal reflux disease) Code(s): K21.9 - GASTRO-ESOPHAGEAL REFLUX DISEASE WITHOUT ESOPHAGITIS Status: Acute (6) Tobacco abuse disorder Code(s): Z72.0 - TOBACCO USE Status: Acute (7) Gross hematuria Status: Acute (8) Acute urinary retention Code(s): R33.8 - OTHER RETENTION OF URINE Status: Acute (9) Metabolic acidosis Code(s): E87.2 - ACIDOSIS Status: Acute (10) Hypokalemia Code(s): E87.6 - HYPOKALEMIA Status: Acute (11) Dilation of biliary tract Code(s): K83.8 - OTHER SPECIFIED DISEASES OF BILIARY TRACT Status: Acute (12) Constipation Code(s): K59.00 - CONSTIPATION, UNSPECIFIED Status: Acute - Plan Continue antibiotics Bone scan as per Urology. Restaging TURBT contemplated. Continue PPI. Diet as tolerated. SCD for DVT prophylaxis For discharge once cleared by urology.
[2019-09-28] MEDS ORDERED: Glycopyrrolate 0.2 MG/ML 5 ML SYRINGE ONE (11:42)
[2019-09-28] MEDS ORDERED: Dexamethasone 20 MG/5 ML VIAL ONE (11:42)
[2019-09-28] MEDS ORDERED: Ondansetron PF 4 MG/2 ML Vial ONE (11:42)
[2019-09-28] MEDS ORDERED: Rocuronium Bromide 10 MG/ML (10ML VIAL) ONE (11:42)
[2019-09-28] MEDS ORDERED: Ketorolac Tromethamine 30 MG/ML VIAL ONE (11:42)
[2019-09-28] MEDS ORDERED: PROPOFOL 200 MG/20 ML VIAL ONE (11:42)
[2019-09-28] MEDS ORDERED: ePHEDrine/0.9% NaCl/PF SYRINGE 50 mg/10 ml ONE (11:42)
--- NOTE | 2019-09-28 12:40 | NM ---
Radionucleotide bone scan HISTORY: Urinary bladder cancer. Evaluate for metastatic disease. FINDINGS: Degenerative type uptake of the shoulders, knees, and feet. Leftward convex curvature of the midthoracic spine. No focal areas of increased uptake involving the posterior medial aspect of left ribs 6 and 7 correlate with abnormalities on recent CT exam. IMPRESSION: No scintigraphic evidence of osseous metastatic disease.
--- NOTE | 2019-09-28 13:08 | PRG ---
DATE OF SERVICE: 09/28/2019 SUBJECTIVE: The patient is currently getting a bone scan. Sawyer catheter has been removed this morning. OBJECTIVE: VITAL SIGNS: Stable. She is afebrile. I's and O's 2300 in and 3150 out. Urine output, clear. ABDOMEN: Soft. No rigidity. No rebound. LABORATORY DATA: Pertinent labs; white count today is 11, hemoglobin 10, platelets 370. Renal function, stable. 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 Due to scant amount of muscle, I would like to proceed with restaging TURBT in few weeks. Bone scan in progress. She can be discharged this afternoon after her bone scan is complete as she has been cleared by General Surgery for discharge. Postop day #1, laparoscopic cholecystectomy by Dr. Davila due to symptomatic cholelithiasis. Addendum: Patient has voided, spontaneously without significant issues. Clear. She can be discharged as she is surgically stable. Discussed with hospitalist service Job ID: [id number] MTDD
[2019-09-28] MEDS: traMADol HCl 50 MG TAB PO PRN (13:16)
--- NOTE | 2019-09-28 13:33 | PRG ---
duplicate Job ID: [id number] MTDD
[2019-09-28] MEDS: Acetaminophen 500 MG TAB PO PRN (15:37)
[2019-09-28] MEDS: Nicotine 21 MG PATCH TOP SCH (15:38)
[2019-09-28 19:48] VITALS: BP 135/70; TEMP 98
--- NOTE | 2019-09-30 05:07 | PDOC.EVN ---
Event Note - Event Note Event Note: Discharge summary dictated. # [id number]
--- NOTE | 2019-09-30 06:27 | DIS ---
DATE OF ADMISSION: 09/21/2019 DATE OF DISCHARGE: 09/28/2019 PRIMARY CARE PROVIDER: [facility]. DISCHARGE DIAGNOSES: 1. Invasive urothelial cancer. 2. Severe anemia. 3. Acute on chronic blood loss anemia. 4. Gross hematuria. 5. Acute urinary retention. 6. Severe iron deficiency anemia due to chronic blood loss. 7. Chronic cholecystitis. 8. Metabolic acidosis. 9. Hypokalemia. 10. Dilatation of biliary tract. 11. Constipation. 12. Tobacco abuse disorder. CONSULTS: Urology and General Surgery, as well as Cardiology. PROCEDURES PERFORMED: 1. Transurethral resection of bladder tumor. 2. Continuous bladder irrigation. 3. Laparoscopic cholecystectomy. HOSPITAL COURSE: A 54-year-old female with known history of bladder mass associated with chronic hematuria, gastroesophageal reflux disease, and tobacco abuse disorder, admitted due to difficulty urination. The patient was found to have gross hematuria on passage of catheter as well as severe anemia with hemoglobin of 3. The patient was stabilized with multiple blood transfusions and was subsequently taken to the OR for cystoscopy and transurethral resection of bladder mass. Postresection of bladder mass, the patient was started on continuous bladder irrigation. Further evaluation revealed severe iron deficiency anemia, hence the patient was treated with IV iron. Given that it was felt that the bladder mass most likely will extend to the muscle and the patient will be requiring cystectomy with ileal conduit. Cardiology consult was obtained for cardiac clearance. The patient subsequently had echocardiogram and nuclear stress test, which were unremarkable, hence the patient was cleared for surgery should it be indicated. The patient also complained of postprandial abdominal discomfort. This was concerning for cholecystitis and right upper quadrant abdominal pain showed features of chronic cholecystitis. This was confirmed by HIDA scan. General Surgery consult was subsequently obtained and she had laparoscopic cholecystectomy. Pathology of the bladder tumor came back showing invasive urothelial cancer in abundance of noninvasive papillary cancer, but it was not clear that it was eroding into the musculature. At this point, Urology recommended discharge for followup for subsequent restaging transurethral resection. The patient remained stable and was subsequently discharged home. PHYSICAL EXAMINATION: VITAL SIGNS: Temperature 98.0, pulse 90, respiratory rate 18, SpO2 of 98% on room air, blood pressure is 135/70. GENERAL: Middle-age female, in no obvious distress. Afebrile. Anicteric. Acyanotic. HEENT: Normocephalic, atraumatic. Oral mucosa is moist. CARDIOVASCULAR: Regular rhythm and rate with normal heart sounds one and two. RESPIRATORY: Fair air entry bilaterally with no obvious crackle or rhonchi or use of accessory muscles. GASTROINTESTINAL: Full, soft, nondistended with appropriate tenderness. Bowel sound is normoactive. EXTREMITIES: Grossly normal-looking atraumatic with no edema or erythema. CENTRAL NERVOUS SYSTEM: Conscious, alert, and oriented x3 with appropriate mental status. DISCHARGE CONDITION: Improved. DISCHARGE DISPOSITION: Home. DISCHARGE FOLLOW-UP: 1. With [facility] or primary care provider of her choice in 1 week. 2. With urologist, Dr. Gina Carr, on October 08, 2019. 3. With General Surgery, Dr. Davila in 2 to 3 weeks. DISCHARGE INSTRUCTIONS: 1. The patient was instructed to avoid aspirin or NSAIDs. 2. She also was instructed to stop smoking. DISCHARGE MEDICATIONS: 1. Acetaminophen 1000 mg p.o. q.6 p.r.n. for pain. 2. Protonix 40 mg p.o. daily. 3. Tramadol 50 mg daily p.o. q.6 p.r.n. for pain. This discharge took more than 35 minutes. Job ID: [id number]
== END 2019-09-28 19:43 | disposition home or self-care (01) | DRG 668 ==
LOC: ERS 11:26 → T4-B 14:51 → IMCU/EMU 21:46 → SURG A 09-23 13:10
PROVIDERS: ADMIT Internal Medicine Nephrology; ATTEND Internal Medicine Nephrology
PROC: 0TBB8ZZ Excision of Bladder, Via Natural or Artificial Opening Endoscopic (ICD-10-PCS; principal; 2019-09-21)
PROC: 0TCB8ZZ Extirpation of Matter from Bladder, Via Natural or Artificial Opening Endoscopic (ICD-10-PCS; 2019-09-21)
PROC: 0FT44ZZ Resection of Gallbladder, Percutaneous Endoscopic Approach (ICD-10-PCS; 2019-09-28)
DX: C67.2 Malignant neoplasm of lateral wall of bladder (principal); G93.41 Metabolic encephalopathy; J96.01 Acute respiratory failure with hypoxia; D62 Acute posthemorrhagic anemia; E87.2 Acidosis; K80.10 Calculus of gallbladder with chronic cholecystitis without obstruction; D50.0 Iron deficiency anemia secondary to blood loss (chronic); R31.0 Gross hematuria; E87.6 Hypokalemia; K59.00 Constipation, unspecified; F17.200 Nicotine dependence, unspecified, uncomplicated; K21.9 Gastro-esophageal reflux disease without esophagitis; E78.5 Hyperlipidemia, unspecified; Z90.81 Acquired absence of spleen; Z91.14 Patient's other noncompliance with medication regimen; F32.9 Major depressive disorder, single episode, unspecified; R33.8 Other retention of urine; K83.8 Other specified diseases of biliary tract; J43.9 Emphysema, unspecified; Z91.19 Patient's noncompliance with other medical treatment and regimen
CPT/HCPCS: 36415; 71045; 71260; 76705; 78227; 78306; 78452; 80048; 80053; 82728; 83540; 83550; 83735; 84484; 85025; 85027; 85060; 85610; 85730; 86850; 86900; 86901; 88304; 88305; 93005; 93017; 93306; A9500; A9503; A9537; C9113; J0131; J0670; J1100; J1885; J1940; J1956; J2060; J2270; J2370; J2405; J2704; J2785; J2916; J3010; J3490; P9016; P9059; Q0162; Q0163; Q9967

== ENCOUNTER 2019-10-22 12:50 | Outpatient (CLI) | payer OTHER ==
[2019-10-22 14:17] LABS: Mean Corpuscular HGB CONC 32.3 g/dL (32.0-36.0); Mean Corpuscular Hemoglobin 29.5 pg (27.0-31.0); Mean Corpuscular Volume 91.3 fL (78.0-98.0); Mean Platelet Volume 8.5 fL (7.4-10.4); Platelet Count 395 thou/uL (130-400); RBC Distribution Width 16.7 % (11.5-14.5); Red Blood Cell (RBC) Count 4.06 mill/uL (4.20-5.40); White Blood Cell (WBC) Count 9.8 thou/uL (4.8-10.8)
[2019-10-22 14:29] LABS: INR-International Normal Ratio 0.9; PTT 29.2 SEC (22.9-36.1); Prothrombin Time 12.4 SEC (12.0-14.7)
[2019-10-22 14:44] LABS: Anion Gap 11 mmol/L (10-20); BUN (Urea Nitrogen) 13 mg/dL (9.8-20.1); Calc. Creatinine Clearance 0 mL/min (70-130); Calcium 9.3 mg/dL (7.8-10.44); Carbon Dioxide 27 mmol/L (22-29); Chloride 105 mmol/L (98-107); Estimated GFR-MDRD 72; Glucose 96 mg/dL (70-105); Potassium 4.2 mmol/L (3.5-5.1); Sodium 139 mmol/L (136-145)
== END 2019-10-22 12:51 | disposition home or self-care (01) ==
LOC: LABBT 12:50
PROVIDERS: ATTEND Urology
DX: Z01.818 Encounter for other preprocedural examination (principal); C67.9 Malignant neoplasm of bladder, unspecified; N95.2 Postmenopausal atrophic vaginitis; Z72.0 Tobacco use
CPT/HCPCS: 80048; 85027; 85610; 85730; 93005; 93010

== ENCOUNTER 2019-10-29 06:11 | Day surgery (SDC) | payer OTHER ==
[2019-10-22 13:23] VITALS: BMI 27.8
[2019-10-29] MEDS ORDERED: Levofloxacin 500 mg/D5W 100 ml Premix Bag ONE (06:28)
[2019-10-29] MEDS ORDERED: Iothalamate Meglumine 60% 50 ML VIAL FS ONE (07:25)
[2019-10-29] MEDS ORDERED: Fentanyl 100 MCG/2 ML VIAL ONE ×2 (07:53→09:28)
[2019-10-29] MEDS ORDERED: Midazolam HCl 2 mg/2 ml Vial ONE (07:53)
--- NOTE | 2019-10-29 09:08 | RAD ---
EXAM: XR IVP Retrograde PROVIDED CLINICAL HISTORY: Urinary bladder cancer. COMPARISON: None FINDINGS/IMPRESSION: Right retrograde urogram is submitted for interpretation. Three fluoroscopic images are submitted. Im aging demonstrates opacification of the right ureter and portion of the right renal collecting system. No overt hydronephrosis is present. Right ureter is mildly prominent, but no persistent filli ng defect is visualized. Final image demonstrates catheter in place with tip overlying the proximal right ureter at the L4-5 level. Correlation with intraoperative findings is recommended.
[2019-10-29] MEDS ORDERED: Phenazopyridine HCl 97.5 MG TABLET ONE (09:24)
[2019-10-29] MEDS ORDERED: Oxybutynin 5 MG TAB ONE (09:25)
[2019-10-29] MEDS ORDERED: Glycopyrrolate 0.2 MG/ML 5 ML SYRINGE ONE (09:55)
[2019-10-29] MEDS ORDERED: PROPOFOL 200 MG/20 ML VIAL ONE (09:55)
[2019-10-29] MEDS ORDERED: PHENYLEPHRINE-NS 100 MCG/ML 10 ML SYRINGE ONE (09:55)
[2019-10-29] MEDS ORDERED: Ondansetron PF 4 MG/2 ML Vial ONE (09:55)
[2019-10-29] MEDS ORDERED: Lidocaine 1% PF 5 ML VIAL ONE (09:55)
[2019-10-29] MEDS ORDERED: Dexamethasone 20 MG/5 ML VIAL ONE (09:55)
[2019-10-29] MEDS ORDERED: Rocuronium Bromide 10 MG/ML (10ML VIAL) ONE (09:55)
[2019-10-29] MEDS ORDERED: HYDROcodone/Acetaminophen 5/325 mg Tablet ONE (11:05)
--- NOTE | 2019-10-29 12:24 | OP ---
DATE OF PROCEDURE: 10/29/2019 PREOPERATIVE DIAGNOSES: 1. 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 2. History of severe anemia, presenting hemoglobin of 3. 3. History of tobacco abuse. POSTOPERATIVE DIAGNOSES: 1. 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 2. History of severe anemia, presenting hemoglobin of 3. 3. History of tobacco abuse. PROCEDURES PERFORMED: Cystoscopy, staging transurethral resection of bladder tumor, right retrograde pyelogram, catheterization of the right ureter. COMPLICATIONS: None apparent. DISPOSITION: To recovery room in stable condition. ESTIMATED BLOOD LOSS: Minimal. IV FLUIDS: 1 L. SPECIMENS: TUR of tumor bed, 1. Superficial. 2. Deep. ANESTHESIA: General. INDICATIONS FOR PROCEDURE AND HISTORY: Ms. Montelongo is a 54-year-old female, whom I have seen as in inpatient consultation last month that she presented with tobacco abuse since age of 18, presented with hemoglobin of 3, gross hematuria, myalgia. She had symptomatic cholecystitis, which was treated on admission, workup demonstrated on TURBT, high-grade urothelial carcinoma of the bladder with invasion into the lamina propria, muscle invasion is likely, however, focal scant fibers of muscle fibers were present and she therefore presents for staging TURBT. Indications have been reviewed, the patient has been fully informed that if confirmed likely with muscle invasive TCC, neoadjuvant chemo radical cystectomy, pelvic exoneration would be choice for definitive care. She desired to proceed. She has been fully informed regarding tobacco cessation and high risk of recurrent cancer due to ongoing tobacco abuse. Risks and complications of the procedure were reviewed with her in detail including, but not limited to, bleeding, pain, infection, injury to adjacent organs, bladder perforation, injury to ureter, sepsis, bleeding. Questions answered to her satisfaction and she desired to proceed. DESCRIPTION OF PROCEDURE: After an informed consent was signed, the patient taken to the operating room, placed in a dorsal lithotomy position with the genital area prepped and draped in the usual surgical sterile fashion. A 21-Georgian cystoscope was utilized for cystoscopy. Surveillance cystoscopy performed demonstrating the UOs in normal orthotopic position. Again, the tumor bed was located cephalad to the right UO encroaching this, however, not involving the right UO. There was some granulomatous reaction of the previous resection site with no gross papillary recurrence per se. At this time, we switched to a 26-Georgian resectoscope with a visual obturator with a 30-degree lens. We subsequently transitioned to Gyrus bipolar and resection of the tumor bed was performed superficial and deep. We did obtain good specimen of the tumor bed, surface of the tumor bed was approximately 3 to 4 cm. We resected the tumor bed, sent separately with superficial and deep. I was able to see muscle fibers to ensure muscle fibers are present in the specimen. Good hemostasis was obtained. The bed of the tumor was cauterized. The right UO was inspected and we checked for peristalsis. We gave her a liter of bolus, however, I did not see any obvious efflux except peristalsis, therefore I did intubate the right UO transitioning to a 30-degree cystoscope. Intubation of the right UO was unremarkable and I was able to pass the catheter beyond the tumor resection. Retrograde pyelogram demonstrated no evidence of filling defect, and prompt excretion of contrast was noted. A 20-Georgian 3-way Sawyer catheter was inserted with CBI port plugged and attached to gravity leg bag. She will be discharged with ciprofloxacin for 7 days, Colace p.r.n., oxybutynin for 10 days, Azo p.r.n. for dysuria. She will return to clinic next week for nurse visit for catheter removal and subsequently on November 16 for further consultation in which I would review the pathology with her and Medical Oncology referral if indicated. Job ID: [id number]
== END 2019-10-29 14:05 | disposition home or self-care (01) ==
LOC: SDC 06:11
PROVIDERS: ATTEND Urology
PROC: 0TBB8ZX Excision of Bladder, Via Natural or Artificial Opening Endoscopic, Diagnostic (ICD-10-PCS; principal; 2019-10-29)
DX: C67.9 Malignant neoplasm of bladder, unspecified (principal); N30.20 Other chronic cystitis without hematuria; K43.2 Incisional hernia without obstruction or gangrene; D64.9 Anemia, unspecified; F17.210 Nicotine dependence, cigarettes, uncomplicated; K21.9 Gastro-esophageal reflux disease without esophagitis; I10 Essential (primary) hypertension; F41.9 Anxiety disorder, unspecified; J44.9 Chronic obstructive pulmonary disease, unspecified; N95.2 Postmenopausal atrophic vaginitis; Z79.899 Other long term (current) drug therapy; Z88.6 Allergy status to analgesic agent; Z88.8 Allergy status to other drugs, medicaments and biological substances
CPT/HCPCS: 36415; 74420; 86850; 86870; 86880; 86900; 86901; 86905; 86970; 86978; 88305; 88312; 88341; 88342; C1758; J1100; J1956; J2001; J2250; J2405; J2704; J3010

== ENCOUNTER 2020-01-09 08:41 | Outpatient (CLI) | payer OTHER ==
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
--- NOTE | 2020-01-09 13:12 | NM ---
Exam: Nuclear medicine whole body bone scan COMPARISON: 09/28/2019 TECHNIQUE: Whole body bone scan was performed after the patient was administered 30.6 mCi of techneti um 99m MDP intravenously. HISTORY: Malignant neoplasm of the trigone of the bladder FINDINGS: Physiologic distribution of the radiotracer. Persistent and essentially stable uptake in bilateral shoulders, knees, feet and ankle. Mild uptake i n both first digits of the left and right foot are also noted. Constellation of findings suggest degenerative change. No scintigraphic evidence of osseous metastases. No significant interval change. IMPRESSION: No significant interval change. No scintigraphic evidence of osseous metastases.
[2020-01-09] MEDS ORDERED: Iopamidol 370 76% 100 ML VIAL ONE (13:48)
== END 2020-01-09 08:42 | disposition home or self-care (01) ==
LOC: CT 08:41
PROVIDERS: ATTEND Internal Medicine Hematology & Oncology
DX: C67.0 Malignant neoplasm of trigone of bladder (principal); R93.41 Abnormal radiologic findings on diagnostic imaging of renal pelvis, ureter, or bladder
CPT/HCPCS: 71260; 74177; 78306; A9503; Q9967

== ENCOUNTER 2020-01-11 07:24 | Outpatient (CLI) | payer OTHER, SELFPAY ==
[2020-01-11 10:02] LABS: Hemoglobin 14.9 g/dL (12.0-16.0); Mean Corpuscular HGB CONC 32.2 g/dL (32.0-36.0); Mean Corpuscular Hemoglobin 29.2 pg (27.0-31.0); Mean Corpuscular Volume 90.8 fL (78.0-98.0); Mean Platelet Volume 9.6 fL (7.4-10.4); Platelet Count 372 thou/uL (130-400); RBC Distribution Width 14.1 % (11.5-14.5); Red Blood Cell (RBC) Count 5.09 mill/uL (4.20-5.40)
[2020-01-11 10:11] LABS: INR-International Normal Ratio 0.8; PTT 29.9 SEC (22.9-36.1); Prothrombin Time 11.4 SEC (12.0-14.7)
[2020-01-11 10:22] LABS: Anion Gap 14 mmol/L (10-20); BUN (Urea Nitrogen) 9 mg/dL (9.8-20.1); Calc. Creatinine Clearance 0 mL/min (70-130); Carbon Dioxide 25 mmol/L (22-29); Chloride 107 mmol/L (98-107); Estimated GFR-MDRD 72; Glucose 93 mg/dL (70-105); Potassium 4.9 mmol/L (3.5-5.1); Sodium 141 mmol/L (136-145)
--- NOTE | 2020-01-11 16:47 | EKG ---
Test Reason : Blood Pressure : / mmHG Vent. Rate : 060 BPM Atrial Rate : 060 BPM P-R Int : 138 ms QRS Dur : 090 ms QT Int : 408 ms P-R-T Axes : 051 054 063 degrees QTc Int : 408 ms Normal sinus rhythm Normal ECG When compared with ECG of 22-OCT-2019 14:01, QT has shortened Confirmed by DR. Rohit YAO ([id number]) on 01/11/2020 4:46:49 PM Referred By: BRI Confirmed By:DR. Rohit YAO
== END 2020-01-11 07:25 | disposition home or self-care (01) ==
LOC: LABBT 07:24
PROVIDERS: ATTEND Urology
DX: Z01.818 Encounter for other preprocedural examination (principal); C67.9 Malignant neoplasm of bladder, unspecified
CPT/HCPCS: 80048; 85027; 85610; 85730; 86850; 86860; 86870; 86880; 86900; 86901; 86922; 86978; 93005; 93010

== ENCOUNTER 2020-01-14 08:01 | Day surgery (SDC) | payer OTHER, SELFPAY ==
[2020-01-11 09:17] VITALS: BMI 24.7
[2020-01-14] MEDS ORDERED: Levofloxacin 500 mg/D5W 100 ml Premix Bag ONE (08:52)
[2020-01-14] MEDS ORDERED: EPHEDRINE 25 MG/5 ML SYRINGE ONE (09:42)
[2020-01-14] MEDS ORDERED: Rocuronium Bromide 10 MG/ML (10ML VIAL) ONE (09:42)
[2020-01-14] MEDS ORDERED: PROPOFOL 200 MG/20 ML VIAL ONE (09:42)
[2020-01-14] MEDS ORDERED: Ondansetron PF 4 MG/2 ML Vial ONE (09:42)
[2020-01-14] MEDS ORDERED: Lidocaine 1% PF 5 ML VIAL ONE (09:42)
[2020-01-14] MEDS ORDERED: Ketorolac Tromethamine 30 MG/ML VIAL ONE (09:42)
[2020-01-14] MEDS ORDERED: Esmolol 100 MG/10 ML VIAL ONE (09:42)
[2020-01-14] MEDS ORDERED: Iothalamate Meglumine 60% 50 ML VIAL FS ONE (09:58)
[2020-01-14] MEDS ORDERED: B & O ONE (09:58)
[2020-01-14] MEDS ORDERED: Fentanyl 100 MCG/2 ML VIAL ONE ×2 (10:05→11:25)
[2020-01-14] MEDS ORDERED: Midazolam HCl 2 mg/2 ml Vial ONE (10:11)
--- NOTE | 2020-01-14 11:15 | RAD ---
Retrograde pyelogram: 01/14/2020 COMPARISON: 10/29/2019 HISTORY: Stent FINDINGS: 4 images from a right retrograde pyelogram provided. The initial image demonstrates contras t media within the ureter. There is a subcentimeter filling defect within the distal right ureter on image 1. There is no contrast media within the upper pole of the right kidney on this examination, limiting assessment. No stent is present on this study. IMPRESSION: Retrograde pyelogram on the right. Incomplete assessment of the right renal collecting sy stem. Nonspecific subcentimeter filling defect within the distal right ureter.
[2020-01-14] MEDS ORDERED: Oxybutynin 5 MG TAB ONE (11:31)
[2020-01-14] MEDS ORDERED: Phenazopyridine HCl 97.5 MG TABLET ONE (11:31)
--- NOTE | 2020-01-14 12:00 | OP ---
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 PROCEDURES PERFORMED: Cystoscopy, transurethral resection of bladder tumour, right retrograde pyelogram, catheterization of the right ureter. ANESTHESIA: LMA, general. COMPLICATIONS: None apparent. DISPOSITION: To recovery room in stable condition. DRAINS: A 20-Tanzanian three-way Sawyer catheter to gravity leg bag. INDICATIONS FOR PROCEDURE AND HISTORY: Ms. Montelongo is a 54-year-old female with history of ongoing tobacco abuse, who presented with severe anemia and initially with gross hematuria clots, status post TURBT demonstrating focus of muscle invasion of high-grade transitional cell carcinoma. She has been seen by Medical Oncology, await financial clearance to proceed with neoadjuvant chemotherapy and presents today for restaging TURBT. Coordination of care has been extremely difficult due to her social disposition. Recent staging CT demonstrates no evidence of metastatic disease. However, there is a focus of hyperenhancement in the right bladder wall consistent with recurrence. She presents today for staging TURBT and local cystoscopy demonstrated granulomatous lesion and recurrence of the tumor bed. Risks and complications of the procedure were reviewed with her in detail including, but not limited to, bleeding, pain, infection, injury to adjacent organs, urosepsis , and bladder perforation. She has been fully informed regarding carcinogenic effects directly on the bladder from tobacco abuse. DESCRIPTION OF PROCEDURE: After an informed consent was signed, the patient was taken to the operating room, placed in a dorsal lithotomy position with the genital area prepped and draped in the usual surgical sterile fashion. A 22-Tanzanian cystoscope was utilized for cystoscopy, which demonstrated normal urethra. Again, noted was a right lateral bladder tumor resection site with granulomatous necrotic debris adherent. The left UOs were identified in normal anatomical location. From previous resection of the right lateral bladder tumor, which runs along the course of the intramural ureter. There were changes consistent with previous TUR resection site resulted in contracture of the bladder mucosa making the right UO more cephalad than the left UO. Contracture of the right lateral bladder mucosa resulted in morphology of the UO appearing more slitlike however no stenosis we were able to intubate the right UO, which was located about a centimeter distal to the resection line of the previous bladder tumor. An open-ended catheter was easily able to be intubated and a retrograde pyelogram did not demonstrate hydronephrosis, filling defect or stricture of concern. We left an open-ended catheter in the right ureter while resecting her right lateral bladder tumor as it runs along the course of the intramural ureter and the edge of the resection site was only about a centimeter cephalad to the right UO. With the open-ended catheter intubated, we transitioned to a 26-Tanzanian resectoscope and we resected the granulomatous lesion, which appeared to be necrotic tumor debris. The edges appeared to have some hyperemia may be due to early tumor recurrence adjacent. We resected the tumor bed surface area, which is about 3 to 4 cm. We obtained superficial and deep and with the deep, we were able to see muscle fibers and hint of perivesical fat. Therefore, I did not resect further. We cauterized the tumor resection site thoroughly and no evidence of bleeding was appreciated. At the end of resection, we removed the open-ended catheter and repeat retrograde pyelogram was performed, which demonstrated no evidence of hydronephrosis or stricture. We watched for efflux from the right ureter, which demonstrated prompt efflux. Fluoroscopy pictures were taken. A 20-Tanzanian 3-way Sawyer catheter was inserted per urethra, and attached to gravity leg bag. She will follow up with me next week for catheter removal. She is discharged with ciprofloxacin for 7 days, Azo p.r.n., Ditropan 10 mg XL # 10, Colace p.r.n. We have updated the patient's home phone number because it has been very difficult to get a hold of the patient to coordinate her chemo and her followup appointment. Of note, Cuca Bright is her daughter, phone #[phone]. The patient's new cell phone number was [phone]. She is scheduled to see Dr. Babb this , January 16, to coordinate chemotherapy initiation for neoadjuvant treatment. Importance of compliance followup reviewed with the patient in detail. She will see my nurse January 20 for catheter removal and a followup appointment with me provided on January 27 for consultation at 11:30. Job ID: [id number] [facility]
[2020-01-14] MEDS ORDERED: HYDROcodone/Acetaminophen 5/325 mg Tablet ONE (12:38)
== END 2020-01-14 13:20 | disposition home or self-care (01) ==
LOC: SDC 08:01
PROVIDERS: ATTEND Urology
PROC: BT1D1ZZ Fluoroscopy of Right Kidney, Ureter and Bladder using Low Osmolar Contrast (ICD-10-PCS; principal; 2020-01-14)
PROC: 0TBB8ZX Excision of Bladder, Via Natural or Artificial Opening Endoscopic, Diagnostic (ICD-10-PCS; principal; 2020-01-14)
DX: C67.9 Malignant neoplasm of bladder, unspecified (principal); F17.210 Nicotine dependence, cigarettes, uncomplicated; D64.9 Anemia, unspecified; K21.9 Gastro-esophageal reflux disease without esophagitis; I10 Essential (primary) hypertension; J44.9 Chronic obstructive pulmonary disease, unspecified; F41.9 Anxiety disorder, unspecified; K43.2 Incisional hernia without obstruction or gangrene; N95.2 Postmenopausal atrophic vaginitis; Z88.8 Allergy status to other drugs, medicaments and biological substances
CPT/HCPCS: 74420; 88307; 88342; C1758; C1769; J1885; J1956; J2001; J2250; J2405; J2704; J3010

== ENCOUNTER 2020-02-01 07:50 | Day surgery (SDC) | payer OTHER ==
[~2020-02-01 07:50] MED LIST changes: +CISPLATIN IV SCH; +Dexamethasone Sod Phosphate 20 MG in Sodium Chloride 0.9% 50 ML IVPB SCH; +GEMCITABINE HCL IVPB SCH; -Glycopyrrolate 0.2 MG/ML 5 ML SYRINGE ONE; +MANNITOL IV SCH; -PHENYLEPHRINE-NS 100 MCG/ML 10 ML SYRINGE ONE; +Palonosetron HCl 0.25 MG in Sodium Chloride 0.9% 50 ML IVPB SCH; -Rocuronium Bromide 10 MG/ML (10ML VIAL) ONE; +SODIUM CHLORIDE 0.9% IV SCH; +SODIUM CHLORIDE 0.9% IVPB SCH; +Sodium Chloride 0.9% 1,000 ML IV SCH; -Succinylcholine Chloride 20 MG/ML 10 ml SYRINGE FS ONE
[2020-02-01] MEDS ORDERED: Sodium Chloride 0.9% 20 ML ONE (12:17)
[2020-02-01 12:54] VITALS: BP 144/80; TEMP 98.4
== END 2020-02-01 17:46 | disposition home or self-care (01) ==
LOC: ONC/OP 07:50
PROVIDERS: ATTEND Internal Medicine Hematology & Oncology
DX: Z51.11 Encounter for antineoplastic chemotherapy (principal); C67.0 Malignant neoplasm of trigone of bladder; Z88.6 Allergy status to analgesic agent
CPT/HCPCS: 96367; 96375; 96413; 96415; 96417; J1100; J1453; J1642; J2150; J2469; J3480; J3490; J7050; J9060; J9201

== ENCOUNTER 2020-02-01 08:18 | Day surgery (SDC) | payer OTHER, SELFPAY ==
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
[2020-01-31 11:32] VITALS: BMI 27.6
[2020-02-01 09:24] LABS: #Basophils 0.1 thou/uL (0.0-0.2); #Eosinphils 0.5 thou/uL (0.0-0.7); #Lymphocytes 3.8 thou/uL (1.20-3.40); #Monocytes 0.5 thou/uL (0.11-0.59); #Neutrophils 5.7 thou/uL (1.40-6.50); %Basophils 1.2 % (0.0-1.0); %Eosinophils 4.3 % (0.0-10.0); %Lymphocytes 35.4 % (21.0-51.0); Hemoglobin 15.4 g/dL (12.0-16.0); Mean Corpuscular HGB CONC 32.2 g/dL (32.0-36.0); Mean Corpuscular Hemoglobin 28.7 pg (27.0-31.0); Mean Corpuscular Volume 89.2 fL (78.0-98.0); Platelet Count 425 thou/uL (130-400); Red Blood Cell (RBC) Count 5.37 mill/uL (4.20-5.40); White Blood Cell (WBC) Count 10.6 thou/uL (4.8-10.8)
[2020-02-01] MEDS ORDERED: Lidocaine 1% w/Epinephrine 1:100K 20 ML VIAL ONE (09:49)
[2020-02-01] MEDS ORDERED: Bupivacaine PF 0.5% 30 ML VIAL ONE (09:49)
[2020-02-01 09:57] LABS: Anion Gap 15 mmol/L (10-20); BUN (Urea Nitrogen) 8 mg/dL (9.8-20.1); Calc. Creatinine Clearance 84 mL/min (70-130); Calcium 9.6 mg/dL (7.8-10.44); Carbon Dioxide 26 mmol/L (22-29); Chloride 103 mmol/L (98-107); Estimated GFR-MDRD 66; Glucose 93 mg/dL (70-105); Potassium 4.6 mmol/L (3.5-5.1); Sodium 139 mmol/L (136-145)
[2020-02-01] MEDS ORDERED: PROPOFOL 0 ML ONE (09:59)
[2020-02-01] MEDS ORDERED: Midazolam HCl 2 mg/2 ml Vial ONE (09:59)
[2020-02-01] MEDS ORDERED: Propofol 500 MG/50 ML VIAL ONE (09:59)
[2020-02-01] MEDS ORDERED: Fentanyl 100 MCG/2 ML VIAL ONE (09:59)
--- NOTE | 2020-02-01 11:48 | RAD ---
CHEST 1 VIEW: Date: 02/01/2020 INDICATION: History of MediPort placement. COMPARISON: Prior exam dated 09/21/2019. FINDINGS: The right subclavian chest wall port catheter appears pinched at the level of its entry into the righ t subclavian vein. Tip of the catheter is seen in the cavoatrial junction. No pneumothorax is evident . The lungs are clear. Heart size is normal. No acute osseous abnormality is evident. IMPRESSION: Suggested slight pinching of the catheter of the MediPort at the level of the right subclavian vein e ntry site. POS: CET
--- NOTE | 2020-02-01 13:00 | OP ---
DATE OF PROCEDURE: 02/01/2020 PREOPERATIVE DIAGNOSIS: Bladder cancer, in need of chemotherapy, antineoplastic access. POSTOPERATIVE DIAGNOSIS: Bladder cancer, in need of chemotherapy, antineoplastic access. PROCEDURES PERFORMED: Placement of right subclavian vein MediPort, low-profile, left access for Oncology use for infusion today. Fluoroscopy used. ANESTHESIA: TIVA, local 0.5% Marcaine with epinephrine 30 mL mixed with 1% Xylocaine 20 mL with epinephrine. DESCRIPTION OF PROCEDURE: The patient was taken to the operating room, where under intravenous sedation, neck and chest were prepared with ChloraPrep and draped in routine fashion. Local anesthetic mixture was infiltrated into the skin and subcutaneous tissue. Infraclavicular approach used to cannulate the right subclavian vein. Obtained good return of venous blood. J-wire threaded, trocar catheter removed. Skin site was enlarged sharply and subcutaneous pocket created with sharp and blunt dissection, noting good hemostasis. Dilator and Peel-Away sheath placed over the J-wire into the superior vena cava, and dilator and J-wire removed. Catheter placed through the Peel-Away sheath, and under fluoroscopic visualization, catheter tip was placed in optimal position in the superior vena cava and catheter tailored to length, connected to the MediPort, which was placed in the subcutaneous pocket and secured with 2 interrupted sutures of 3-0 Prolene. Subcutaneous tissue was approximated with 3-0 Monocryl, skin with subdermal 4-0 Monocryl, and [place] glue applied. Chest fluoroscopy performed, revealing good MediPort catheter placement. MediPort accessed with a Ugarte needle, aspirated blood, flushed with heparinized saline solution, and the patient tolerated the procedure well. Job ID: [id number]
== END 2020-02-01 12:00 | disposition home or self-care (01) ==
LOC: SDC 08:18
PROVIDERS: ATTEND Specialist
PROC: B518ZZA Fluoroscopy of Superior Vena Cava, Guidance (ICD-10-PCS; principal; 2020-02-01)
PROC: 0JH60WZ Insertion of Totally Implantable Vascular Access Device into Chest Subcutaneous Tissue and Fascia, Open Approach (ICD-10-PCS; principal; 2020-02-01)
PROC: 02HV33Z Insertion of Infusion Device into Superior Vena Cava, Percutaneous Approach (ICD-10-PCS; principal; 2020-02-01)
DX: Z45.2 Encounter for adjustment and management of vascular access device (principal); C67.9 Malignant neoplasm of bladder, unspecified; K43.2 Incisional hernia without obstruction or gangrene; Z87.891 Personal history of nicotine dependence; Z88.6 Allergy status to analgesic agent; Z90.81 Acquired absence of spleen; Z90.49 Acquired absence of other specified parts of digestive tract
CPT/HCPCS: 71045; 80048; 83735; 85025; C1788; J0690; J1642; J2250; J2704; J3010; S0020

== ENCOUNTER → 2020-02-08 | Day surgery (SDC) | payer OTHER ==
[~2020-02-08] MED LIST changes: -CISPLATIN IV SCH; +Dexamethasone 10 MG in Sodium Chloride 0.9% 50 ML IVPB SCH; +Dexamethasone Sod Phosphate 10 MG, Ondansetron 2MG/ML MDV 10 MG in Sodium Chloride 0.9%... IVPB SCH; -Dexamethasone Sod Phosphate 20 MG in Sodium Chloride 0.9% 50 ML IVPB SCH; -MANNITOL IV SCH; +Ondansetron HCl/PF 10 MG in Sodium Chloride 0.9% 50 ML IVPB SCH; -Palonosetron HCl 0.25 MG in Sodium Chloride 0.9% 50 ML IVPB SCH; -SODIUM CHLORIDE 0.9% IV SCH; -Sodium Chloride 0.9% 1,000 ML IV SCH; +Sodium Chloride 0.9% 20 ML ONE
[2020-02-08 09:56] VITALS: BP 138/89; TEMP 97.6
== END ==
LOC: ONC/OP 08:55
PROVIDERS: ATTEND Internal Medicine Hematology & Oncology
DX: Z51.11 Encounter for antineoplastic chemotherapy (principal); C67.0 Malignant neoplasm of trigone of bladder; Z88.6 Allergy status to analgesic agent
CPT/HCPCS: 96375; 96413; J1100; J1642; J2405; J7050; J9201

== ENCOUNTER 2020-02-15 08:17 | Day surgery (SDC) | payer OTHER ==
[~2020-02-15 08:17] MED LIST changes: -Dexamethasone 10 MG in Sodium Chloride 0.9% 50 ML IVPB SCH; -Ondansetron HCl/PF 10 MG in Sodium Chloride 0.9% 50 ML IVPB SCH; -Sodium Chloride 0.9% 20 ML ONE
[2020-02-15] MEDS ORDERED: Sodium Chloride 0.9% 20 ML ONE (08:25)
[2020-02-15 08:51] VITALS: BP 172/88; TEMP 97.9
== END 2020-02-15 10:55 | disposition home or self-care (01) ==
LOC: ONC/OP 08:17
PROVIDERS: ATTEND Internal Medicine Hematology & Oncology
DX: Z51.11 Encounter for antineoplastic chemotherapy (principal); C67.0 Malignant neoplasm of trigone of bladder; Z88.6 Allergy status to analgesic agent
CPT/HCPCS: 96375; 96413; J1100; J1642; J2405; J7050; J9201

== ENCOUNTER 2020-02-29 08:47 | Day surgery (SDC) | payer OTHER ==
[~2020-02-29 08:47] MED LIST changes: +CISPLATIN IV SCH; -Dexamethasone Sod Phosphate 10 MG, Ondansetron 2MG/ML MDV 10 MG in Sodium Chloride 0.9%... IVPB SCH; +Dexamethasone Sod Phosphate 20 MG in Sodium Chloride 0.9% 50 ML IVPB SCH; +MANNITOL IV SCH; +Palonosetron HCl 0.25 MG in Sodium Chloride 0.9% 50 ML IVPB SCH; +SODIUM CHLORIDE 0.9% IV SCH; +Sodium Chloride 0.9% 1,000 ML IV SCH
[2020-02-29] MEDS ORDERED: Sodium Chloride 0.9% 20 ML ONE (08:58)
[2020-02-29 09:27] VITALS: BP 165/97; TEMP 97.9
== END 2020-02-29 15:24 | disposition home or self-care (01) ==
LOC: ONC/OP 08:47
PROVIDERS: ATTEND Internal Medicine Hematology & Oncology
DX: Z51.11 Encounter for antineoplastic chemotherapy (principal); C67.0 Malignant neoplasm of trigone of bladder; Z88.6 Allergy status to analgesic agent
CPT/HCPCS: 96367; 96375; 96413; 96415; 96417; J1100; J1453; J1642; J2150; J2469; J3480; J3490; J7030; J7050; J9060; J9201

== ENCOUNTER 2020-03-07 09:02 | Day surgery (SDC) | payer OTHER ==
[~2020-03-07 09:02] MED LIST changes: -CISPLATIN IV SCH; +Dexamethasone Sod Phosphate 10 MG, Ondansetron 2MG/ML MDV 10 MG in Sodium Chloride 0.9%... IVPB SCH; -MANNITOL IV SCH; -Palonosetron HCl 0.25 MG in Sodium Chloride 0.9% 50 ML IVPB SCH; -SODIUM CHLORIDE 0.9% IV SCH; -Sodium Chloride 0.9% 1,000 ML IV SCH
[2020-03-07] MEDS ORDERED: Sodium Chloride 0.9% 20 ML ONE (09:18)
[2020-03-07 10:38] VITALS: BP 161/89; TEMP 97.6
== END 2020-03-07 10:40 | disposition home or self-care (01) ==
LOC: ONC/OP 09:02
PROVIDERS: ATTEND Internal Medicine Hematology & Oncology
DX: Z51.11 Encounter for antineoplastic chemotherapy (principal); C67.0 Malignant neoplasm of trigone of bladder; Z88.6 Allergy status to analgesic agent
CPT/HCPCS: 96375; 96413; J1100; J1642; J2405; J7050; J9201

== ENCOUNTER 2020-03-14 09:05 | Day surgery (SDC) | payer OTHER ==
[~2020-03-14 09:05] MED LIST changes: +Dexamethasone 10 MG in Sodium Chloride 0.9% 50 ML IVPB SCH; -Dexamethasone Sod Phosphate 20 MG in Sodium Chloride 0.9% 50 ML IVPB SCH; +Ondansetron HCl/PF 10 MG in Sodium Chloride 0.9% 50 ML IVPB SCH
[2020-03-14 09:20] VITALS: BP 135/82; TEMP 97.9
[2020-03-14] MEDS ORDERED: Sodium Chloride 0.9% 20 ML ONE (09:41)
== END 2020-03-14 10:58 | disposition home or self-care (01) ==
LOC: ONC/OP 09:05
PROVIDERS: ATTEND Internal Medicine Hematology & Oncology
DX: Z51.11 Encounter for antineoplastic chemotherapy (principal); C67.0 Malignant neoplasm of trigone of bladder; Z88.6 Allergy status to analgesic agent
CPT/HCPCS: 96375; 96413; J1100; J1642; J2405; J7050; J9201

== ENCOUNTER 2020-03-28 07:58 | Day surgery (SDC) | payer MEDICAID, OTHER ==
[~2020-03-28 07:58] MED LIST changes: +CISPLATIN IV SCH; -Dexamethasone 10 MG in Sodium Chloride 0.9% 50 ML IVPB SCH; -Dexamethasone Sod Phosphate 10 MG, Ondansetron 2MG/ML MDV 10 MG in Sodium Chloride 0.9%... IVPB SCH; +Dexamethasone Sod Phosphate 20 MG in Sodium Chloride 0.9% 50 ML IVPB SCH; +MANNITOL IV SCH; -Ondansetron HCl/PF 10 MG in Sodium Chloride 0.9% 50 ML IVPB SCH; +Palonosetron HCl 0.25 MG in Sodium Chloride 0.9% 50 ML IVPB SCH; +SODIUM CHLORIDE 0.9% IV SCH; +Sodium Chloride 0.9% 1,000 ML IV SCH
[2020-03-28] MEDS ORDERED: Sodium Chloride 0.9% 20 ML ONE (08:16)
[2020-03-28 08:49] VITALS: BP 143/81; TEMP 98.2
== END 2020-03-28 16:41 | disposition home or self-care (01) ==
LOC: ONC/OP 07:58
PROVIDERS: ATTEND Internal Medicine Hematology & Oncology
DX: Z51.11 Encounter for antineoplastic chemotherapy (principal); C67.0 Malignant neoplasm of trigone of bladder; Z88.6 Allergy status to analgesic agent
CPT/HCPCS: 96366; 96367; 96375; 96413; 96415; 96417; J1100; J1453; J1642; J2150; J2469; J3480; J3490; J7030; J7050; J9060; J9201

== ENCOUNTER 2020-04-04 08:30 | Day surgery (SDC) | payer MEDICAID, OTHER ==
[~2020-04-04 08:30] MED LIST changes: -CISPLATIN IV SCH; +Dexamethasone Sod Phosphate 10 MG, Ondansetron 2MG/ML MDV 10 MG in Sodium Chloride 0.9%... IVPB SCH; -MANNITOL IV SCH; -Palonosetron HCl 0.25 MG in Sodium Chloride 0.9% 50 ML IVPB SCH; -SODIUM CHLORIDE 0.9% IV SCH; -Sodium Chloride 0.9% 1,000 ML IV SCH
[2020-04-04] MEDS ORDERED: Sodium Chloride 0.9% 20 ML ONE (08:37)
[2020-04-04 09:25] VITALS: BP 173/94; TEMP 97.6
== END 2020-04-04 12:35 | disposition home or self-care (01) ==
LOC: ONC/OP 08:30
PROVIDERS: ATTEND Internal Medicine Hematology & Oncology
DX: Z51.11 Encounter for antineoplastic chemotherapy (principal); C67.0 Malignant neoplasm of trigone of bladder; Z88.6 Allergy status to analgesic agent
CPT/HCPCS: 96375; 96413; J1100; J1642; J2405; J7050; J9201

== ENCOUNTER 2020-04-11 08:40 | Day surgery (SDC) | payer MEDICAID ==
[~2020-04-11 08:40] MED LIST changes: -Dexamethasone Sod Phosphate 20 MG in Sodium Chloride 0.9% 50 ML IVPB SCH
[2020-04-11] MEDS ORDERED: GEMZAR IVPB SCH (08:45)
[2020-04-11] MEDS ORDERED: SODIUM CHLORIDE 0.9% IVPB SCH (08:45)
[2020-04-11] MEDS ORDERED: Sodium Chloride 0.9% 20 ML ONE (08:50)
[2020-04-11 09:44] VITALS: BP 176/96; TEMP 97.9
== END 2020-04-11 10:25 | disposition home or self-care (01) ==
LOC: ONC/OP 08:40
PROVIDERS: ATTEND Internal Medicine Hematology & Oncology
DX: Z51.11 Encounter for antineoplastic chemotherapy (principal); C67.0 Malignant neoplasm of trigone of bladder; Z88.6 Allergy status to analgesic agent
CPT/HCPCS: 96375; 96413; J1100; J1642; J2405; J7050; J9201

== ENCOUNTER 2020-04-25 08:55 | Day surgery (SDC) | payer MEDICAID ==
[~2020-04-25 08:55] MED LIST changes: +CISPLATIN IV SCH; -Dexamethasone Sod Phosphate 10 MG, Ondansetron 2MG/ML MDV 10 MG in Sodium Chloride 0.9%... IVPB SCH; +Dexamethasone Sod Phosphate 20 MG in Sodium Chloride 0.9% 50 ML IVPB SCH; +MANNITOL IV SCH; +Palonosetron HCl 0.25 MG in Sodium Chloride 0.9% 50 ML IVPB SCH; +SODIUM CHLORIDE 0.9% IV SCH; +Sodium Chloride 0.9% 1,000 ML IV SCH
[2020-04-25 09:22] VITALS: BP 141/85; TEMP 97
== END 2020-04-25 14:45 | disposition home or self-care (01) ==
LOC: ONC/OP 08:55
PROVIDERS: ATTEND Internal Medicine Hematology & Oncology
DX: Z51.11 Encounter for antineoplastic chemotherapy (principal); C67.0 Malignant neoplasm of trigone of bladder; Z88.6 Allergy status to analgesic agent
CPT/HCPCS: 80053; 82248; 83615; 83735; 84100; 84550; 96367; 96375; 96413; 96417; J1100; J1453; J2150; J2469; J3480; J3490; J7030; J7050; J9060; J9201

== ENCOUNTER 2020-05-02 08:24 | Day surgery (SDC) | payer MEDICAID ==
[~2020-05-02 08:24] MED LIST changes: -CISPLATIN IV SCH; +Dexamethasone Sod Phosphate 10 MG, Ondansetron 2MG/ML MDV 10 MG in Sodium Chloride 0.9%... IVPB SCH; -Dexamethasone Sod Phosphate 20 MG in Sodium Chloride 0.9% 50 ML IVPB SCH; -MANNITOL IV SCH; -Palonosetron HCl 0.25 MG in Sodium Chloride 0.9% 50 ML IVPB SCH; -SODIUM CHLORIDE 0.9% IV SCH; -Sodium Chloride 0.9% 1,000 ML IV SCH
[2020-05-02] MEDS ORDERED: Sodium Chloride 0.9% 20 ML ONE (08:29)
[2020-05-02 08:34] VITALS: BP 163/92; TEMP 97.7
== END 2020-05-02 10:17 | disposition home or self-care (01) ==
LOC: ONC/OP 08:24
PROVIDERS: ATTEND Internal Medicine Hematology & Oncology
DX: Z51.11 Encounter for antineoplastic chemotherapy (principal); C67.0 Malignant neoplasm of trigone of bladder; Z88.6 Allergy status to analgesic agent
CPT/HCPCS: 81001; 87086; 96375; 96413; J1100; J1642; J2405; J7050; J9201

== ENCOUNTER 2020-05-09 09:34 | Day surgery (SDC) | payer MEDICAID ==
[2020-05-09] MEDS ORDERED: Sodium Chloride 0.9% 20 ML ONE (09:43)
[2020-05-09 10:07] VITALS: BP 210/97; TEMP 97.6
== END 2020-05-09 11:51 | disposition home or self-care (01) ==
LOC: ONC/OP 09:34
PROVIDERS: ATTEND Internal Medicine Hematology & Oncology
DX: Z51.11 Encounter for antineoplastic chemotherapy (principal); C67.0 Malignant neoplasm of trigone of bladder; Z88.6 Allergy status to analgesic agent
CPT/HCPCS: 96375; 96413; J1100; J1642; J2405; J7050; J9201

== ENCOUNTER 2020-05-29 06:20 | Outpatient (CLI) | payer OTHER ==
--- NOTE | 2020-05-29 14:10 | RAD ---
EXAM: Single view of the chest HISTORY: Preoperative radiograph COMPARISON: None FINDINGS: Single view of the chest shows a normal sized cardiomediastinal silhouette. A Mediport is seen with its tip in the superior vena cava. There is no evidence of consolidation, mass, or pleural effusion. The bones are unremarkable IMPRESSION: No evidence of acute cardiopulmonary disease
[2020-05-29 16:11] LABS: Anion Gap 10 mmol/L (10-20); BUN (Urea Nitrogen) 11 mg/dL (9.8-20.1); Calc. Creatinine Clearance 0 mL/min (70-130); Calcium 9.5 mg/dL (7.8-10.44); Carbon Dioxide 30 mmol/L (22-29); Chloride 101 mmol/L (98-107); Estimated GFR-MDRD 70; Glucose 78 mg/dL (70-105); Potassium 4.5 mmol/L (3.5-5.1); Sodium 136 mmol/L (136-145)
[2020-05-29 16:35] LABS: Band 5 % (5-11); Eosinophils 1 % (0-10); Hemoglobin 13.5 g/dL (12.0-16.0); Hypochromia SLIGHT = 6-15 cells (100X) (0-5/hpf); Lymphocytes 51 % (21-51); MDiff Complete? YES; Macrocytosis SLIGHT = 6-15 cells (100X) (0-5/hpf); Mean Corpuscular HGB CONC 32.4 g/dL (32.0-36.0); Mean Corpuscular Hemoglobin 32.1 pg (27.0-31.0); Mean Platelet Volume 8.8 fL (7.4-10.4); Monocytes 16 % (0-10); Neutrophil 16 % (42-75); Platelet Count 613 thou/uL (130-400); Platelet Morphology Comment Appears Increased; Polychromasia SLIGHT = 2-3 cells (100X) (0-2/hpf); RBC Distribution Width 17.4 % (11.5-14.5); Reactive Lymphocytes 11 % (0-10); White Blood Cell (WBC) Count 10.2 thou/uL (4.8-10.8)
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
[2020-05-29 18:06] LABS: INR-International Normal Ratio 1.1; PTT 43.2 sec (22.9-36.1); Prothrombin Time 14.1 sec (12.0-14.7)
[2020-05-30 13:05] LABS: SARS-CoV-2 MS2 Positive; SARS-CoV-2 N Gene Negative; SARS-CoV-2 S Gene Negative; SARS-CoV-2 orf1ab Negative
== END 2020-05-29 06:21 | disposition home or self-care (01) ==
LOC: LABBT 06:20
PROVIDERS: ATTEND Urology
DX: Z01.818 Encounter for other preprocedural examination (principal); Z11.59 Encounter for screening for other viral diseases
CPT/HCPCS: 71045; 80048; 84702; 85025; 85610; 85730; 86850; 86900; 86901; 87635; U0003

== ENCOUNTER 2020-05-29 09:30 | Inpatient (IN) | payer OTHER ==
[2020-06-02] MEDS ORDERED: Gabapentin 300 MG CAP ONE (06:12)
[2020-06-02] MEDS ORDERED: Levofloxacin 500 mg/D5W 100 ml Premix Bag ONE (06:12)
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
[2020-06-02] MEDS ORDERED: Gentamicin 80 MG/2 ML VIAL ONE ×2 (06:36→10:28)
[2020-06-02] MEDS ORDERED: Midazolam HCl 2 mg/2 ml Vial ONE ×2 (06:46→07:04)
[2020-06-02] MEDS ORDERED: Fentanyl 250 MCG/5 ML VIAL ONE ×2 (06:46→09:11)
[2020-06-02] MEDS ORDERED: Ondansetron ODT 4 MG TAB ONE (07:04)
[2020-06-02] MEDS ORDERED: Bupivacaine 0.25% HCL 30 ML VIAL ONE ×2 (07:29→17:50)
[2020-06-02] MEDS ORDERED: Acetaminophen 500 MG TAB PO PRN ×3 (08:09→19:48)
[2020-06-02] MEDS ORDERED: Ondansetron PF 4 MG/2 ML Vial IVP PRN (08:15)
[2020-06-02] MEDS ORDERED: Hydrocerin (Eucerin) Cream 120 gm Jar TOP PRN ×2 (08:15→19:49)
[2020-06-02] MEDS ORDERED: Promethazine HCl 25 MG/ML VIAL IM PRN ×2 (08:15→19:48)
[2020-06-02] MEDS ORDERED: Naloxone HCl 0.4 mg/ml Vial IVP PRN ×2 (08:15→19:49)
[2020-06-02] MEDS ORDERED: Zolpidem Tartrate 5 MG TAB PO PRN ×3 (08:15→19:49)
[2020-06-02] MEDS ORDERED: fentaNYL Citrate/PF 500 MCG, Bupivacaine 10 ML in Sodium Chloride 0.9% 80 ML EPIDURAL SCH (08:15)
[2020-06-02] MEDS ORDERED: Naloxone HCl 0.4 mg/ml Vial IV PRN ×2 (08:15→19:48)
[2020-06-02] MEDS ORDERED: Promethazine HCl 25 MG SUPP PR PRN ×2 (08:15→19:48)
[2020-06-02] MEDS ORDERED: diphenhydrAMINE 50 MG/ML VIAL IM PRN ×2 (08:15→19:49)
[2020-06-02] MEDS ORDERED: HYDROcodone/Acetaminophen 5/325 mg Tablet PO PRN ×4 (08:15→19:48)
[2020-06-02] MEDS ORDERED: traMADol HCl 50 MG TAB PO PRN ×3 (08:15→19:48)
[2020-06-02] MEDS ORDERED: diphenhydrAMINE 50 MG/ML VIAL IVP PRN ×3 (08:15→19:49)
[2020-06-02] MEDS ORDERED: Bupivacaine 0.25% 10 ML VIAL EPIDURAL PRN ×2 (08:15→19:48)
[2020-06-02] MEDS ORDERED: diphenhydrAMINE 25 MG CAP PO PRN ×2 (08:15→19:49)
[2020-06-02] MEDS ORDERED: Sodium Chloride 0.9% 20 ML ONE (08:33)
[2020-06-02] MEDS ORDERED: Phenylephrine 10 MG/ML VIAL ONE (09:42)
[2020-06-02] MEDS ORDERED: Vecuronium 10 MG VIAL ONE ×3 (10:27→12:01)
[2020-06-02] MEDS ORDERED: Neomycin-Polymyxin 1 ML AMP ONE (10:28)
[2020-06-02] MEDS ORDERED: Albumin 5% 250 ML ONE (11:13)
[2020-06-02] MEDS ORDERED: Calcium Chloride 1 GM/10 ML Abboject SYRINGE ONE (12:01)
[2020-06-02] MEDS ORDERED: Ondansetron PF 4 MG/2 ML Vial ONE ×3 (12:01→13:51)
[2020-06-02] MEDS ORDERED: PHENYLEPHRINE-NS 100 MCG/ML 10 ML SYRINGE ONE (12:01)
[2020-06-02] MEDS ORDERED: Lidocaine 1.5% w/Epi 1:200K 30 ML VIAL (Epid Use) ONE (12:01)
[2020-06-02] MEDS ORDERED: Succinylcholine Chloride 20 MG/ML 10 ml SYRINGE FS ONE (12:01)
[2020-06-02] MEDS ORDERED: diphenhydrAMINE 50 MG/ML VIAL ONE (12:01)
[2020-06-02] MEDS ORDERED: Dexamethasone 20 MG/5 ML VIAL ONE (12:01)
[2020-06-02] MEDS ORDERED: PROPOFOL 200 MG/20 ML VIAL ONE (12:01)
[2020-06-02] MEDS ORDERED: Lidocaine 1% PF 5 ML VIAL ONE (12:01)
[2020-06-02] MEDS ORDERED: Albumin 5% 500 ML ONE (13:51)
[2020-06-02 13:57] LABS: Potassium 6.3 mmol/L (3.5-5.1)
[2020-06-02] MEDS ORDERED: Dextrose 50% Abboject 50 ML SYRINGE ONE (13:59)
[2020-06-02] MEDS ORDERED: Insulin Regular 300 UNITS/3 ML VIAL ONE (13:59)
[2020-06-02 14:51] LABS: #Basophils 0.1 thou/uL (0.0-0.2); #Lymphocytes 3.2 thou/uL (1.20-3.40); #Monocytes 1.5 thou/uL (0.11-0.59); #Neutrophils 10.8 thou/uL (1.40-6.50); %Basophils 0.3 % (0.0-1.0); %Eosinophils 0.1 % (0.0-10.0); %Lymphocytes 20.5 % (21.0-51.0); %Monocytes 9.6 % (0.0-10.0); %Neutrophils 69.5 % (42.0-75.0); Mean Corpuscular HGB CONC 33.2 g/dL (32.0-36.0); Mean Corpuscular Hemoglobin 31.2 pg (27.0-31.0); Mean Corpuscular Volume 93.8 fL (78.0-98.0); Mean Platelet Volume 8.7 fL (7.4-10.4); Platelet Count 314 thou/uL (130-400); RBC Distribution Width 17.4 % (11.5-14.5); Red Blood Cell (RBC) Count 2.89 mill/uL (4.20-5.40); White Blood Cell (WBC) Count 15.6 thou/uL (4.8-10.8)
[2020-06-02 14:57] LABS: INR-International Normal Ratio 1.3; PTT 30.3 sec (22.9-36.1); Prothrombin Time 16.1 sec (12.0-14.7)
[2020-06-02] MEDS ORDERED: SUGAMMADEX SODIUM 200 MG/2 ML VIAL ONE (15:10)
[2020-06-02 15:13] LABS: ALT (SGPT) 17 U/L (8-55); AST (SGOT) 41 U/L (5-34); Albumin 3.1 g/dL (3.5-5.0); Alkaline Phosphatase 64 U/L (40-110); Anion Gap 12 mmol/L (10-20); BUN (Urea Nitrogen) 6 mg/dL (9.8-20.1); Bilirubin, Total 0.4 mg/dL (0.2-1.2); Calc. Creatinine Clearance 84 mL/min (70-130); Calcium 8.5 mg/dL (7.8-10.44); Carbon Dioxide 17 mmol/L (22-29); Chloride 113 mmol/L (98-107); Estimated GFR-MDRD 62; Globulin 1.5 g/dL (2.4-3.5); Glucose 228 mg/dL (70-105); Potassium 4.9 mmol/L (3.5-5.1); Protein, Total 4.6 g/dL (6.0-8.3); Sodium 137 mmol/L (136-145)
[2020-06-02] MEDS ORDERED: hydrALAZINE 20 MG/ML VIAL SLOW IVP PRN ×3 (15:41→16:09)
[2020-06-02] MEDS ORDERED: Sodium Chloride 0.9% 1,000 ML IV SCH (15:45)
[2020-06-02] MEDS: hydrALAZINE 20 MG/ML VIAL SLOW IVP PRN (16:25)
[2020-06-02 16:29] LABS: Anion Gap 12 mmol/L (10-20); BUN (Urea Nitrogen) 7 mg/dL (9.8-20.1); Calc. Creatinine Clearance 90 mL/min (70-130); Calcium 8.1 mg/dL (7.8-10.44); Carbon Dioxide 18 mmol/L (22-29); Chloride 113 mmol/L (98-107); Estimated GFR-MDRD 67; Glucose 150 mg/dL (70-105); Potassium 4.9 mmol/L (3.5-5.1); Sodium 138 mmol/L (136-145)
--- NOTE | 2020-06-02 16:29 | RAD ---
PORTABLE CHEST ONE VIEW: Date: 06-02-2020 Time: 4:14 p.m. History: Central line placement. FINDINGS: Comparison is made with exam of 05-29-2020. Right sided port-a-cath remains in place. There has been interval placement of a left subclavian cent ral line with tip in the projection of the SVC. No pneumothorax, focal areas of consolidation, or lar ge effusions are seen. IMPRESSION: As above. POS: SARAH
[2020-06-02 16:32] LABS: Anisocytosis SLIGHT = 6-15 cells (100X) (0-5/hpf); Band 42 % (5-11); Lymphocytes 19 % (21-51); MDiff Complete? YES; Mean Corpuscular HGB CONC 32.9 g/dL (32.0-36.0); Mean Corpuscular Hemoglobin 30.8 pg (27.0-31.0); Mean Corpuscular Volume 93.5 fL (78.0-98.0); Mean Platelet Volume 8.7 fL (7.4-10.4); Monocytes 6 % (0-10); Neutrophil 25 % (42-75); Platelet Count 366 thou/uL (130-400); Platelet Morphology Comment Appears Adequate; Polychromasia SLIGHT = 2-3 cells (100X) (0-2/hpf); RBC Distribution Width 17.4 % (11.5-14.5); Reactive Lymphocytes 8 % (0-10); Red Blood Cell (RBC) Count 3.25 mill/uL (4.20-5.40); White Blood Cell (WBC) Count 20.5 thou/uL (4.8-10.8)
--- NOTE | 2020-06-02 16:41 | RAD ---
ABDOMEN ONE VIEW: History: Bilateral stent placement. FINDINGS: The bowel gas pattern is unremarkable. There are bilateral ureteral stents. The left ureteral stent c rosses the midline in the pelvis. Post op changes seen in the pelvis. A surgical drain is present. IMPRESSION: As above. POS: SARAH
[2020-06-02] MEDS ORDERED: Dextrose 50% Abboject 50 ML SYRINGE SLOW IVP PRN (17:09)
[2020-06-02] MEDS ORDERED: Dextrose 5% in Water 1,000 ML IV PRN (17:09)
[2020-06-02] MEDS: cefTRIAXone\\ROCEPHIN 2 GM in Sodium Chloride 0.9% 100 ML IVPB SCH (18:14)
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
--- NOTE | 2020-06-02 20:10 | OP ---
DATE OF PROCEDURE: 06/02/2020 PREOPERATIVE DIAGNOSES: 1. Bladder cancer. 2. Incisional hernia. 3. Adhesions from prior surgery. 4. Poor IV access. 5. History of tobacco use. PROCEDURES PERFORMED: 1. Lysis of adhesions to gain access to the operative site. 2. Small bowel anastomosis for formation of ileal conduit. 3. Incisional hernia repair without mesh. 4. Left subclavian vein central line. During the same anesthetic, Dr. Carr and Dr. Ruiz performed radical pelvic exenteration with cystectomy for bladder cancer and ileal conduit as well as hysterectomy and node dissection. DESCRIPTION OF PROCEDURE: The patient was taken to the operating room where under general anesthesia, left paraclavicular area was prepared with ChloraPrep and draped in routine fashion. Left subclavian vein was access with infraclavicular approach for trocar catheter, threading the J-wire, removing the trocar catheter. Seldinger technique used to place a triple-lumen catheter, secured with 3-0 silk sutures and sterile dressing. Each port aspirated blood, flushed with saline solution, and connected IV fluids. Sterile dressing applied. An incision was made, carried down to the skin, subcutaneous tissue, midline fascia, unroofing the incisional hernia in the upper abdomen between the umbilicus and xiphoid and taking down adhesions of omentum between the abdominal wall fascia. There were no significant adhesions of the small bowel. Gastric tube was palpated in good position. At this point, Bookwalter retractor placed and Dr. Carr and Dr. Ruiz performed the hysterectomy, cystectomy, and initiated the ileal conduit. Once this part of the operation was reached, I was called back to the operating room and a small bowel anastomosis performed with 2 fires of the NEW 75 stapler. Mesenteric defect closed with interrupted sutures of 3-0 silk. Ileal conduit formation completed by Dr. Carr and Dr. Ruiz, and then I closed the midline incision with combination of continuous interrupted sutures of #1 PDS, closing the fascial defect. Skin and subcutaneous tissues irrigated. Skin was approximated with yiemi. Sterile dressing applied. Dr. Carr completed the ileostomy maturation. Job ID: [id number]
[2020-06-02] MEDS: Dextrose 5 % And 0.9 % NaCl 1,000 ML IV SCH ×2 (20:32→23:53)
[2020-06-02] MEDS: Famotidine/PF 20 mg/2ml Vial SLOW IVP SCH (20:33)
[2020-06-02] MEDS: Morphine 2 MG/ML VIAL SLOW IVP SCH (20:34)
[2020-06-02] MEDS ORDERED: CEFOXITIN SODIUM IVPB SCH (22:00)
[2020-06-02] MEDS ORDERED: SODIUM CHLORIDE 0.9% IVPB SCH (22:00)
[2020-06-02] MEDS ORDERED: cefOXitin 1.5 GM in Sodium Chloride 0.9% 100 ML IVPB SCH (22:00)
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
[2020-06-03] MEDS: hydrALAZINE 20 MG/ML VIAL SLOW IVP PRN (00:39)
[2020-06-03] MEDS: Morphine 2 MG/ML VIAL SLOW IVP SCH ×2 (00:40→00:41)
[2020-06-03] MEDS: Ondansetron PF 4 MG/2 ML Vial IVP PRN ×2 (01:21→08:35)
[2020-06-03] MEDS: fentaNYL Citrate/PF 500 MCG, Bupivacaine 10 ML in Sodium Chloride 0.9% 80 ML EPIDURAL SCH ×3 (02:33→20:57)
[2020-06-03 05:00] LABS: #Basophils 0.1 thou/uL (0.0-0.2); #Lymphocytes 5.4 thou/uL (1.20-3.40); #Monocytes 2.3 thou/uL (0.11-0.59); #Neutrophils 12.1 thou/uL (1.40-6.50); %Basophils 0.3 % (0.0-1.0); %Eosinophils 0.1 % (0.0-10.0); %Lymphocytes 27.2 % (21.0-51.0); %Monocytes 11.4 % (0.0-10.0); %Neutrophils 61.1 % (42.0-75.0); Hemoglobin 9.9 g/dL (12.0-16.0); Mean Corpuscular HGB CONC 31.9 g/dL (32.0-36.0); Mean Corpuscular Hemoglobin 30.1 pg (27.0-31.0); Mean Corpuscular Volume 94.3 fL (78.0-98.0); Mean Platelet Volume 9.1 fL (7.4-10.4); Platelet Count 354 thou/uL (130-400); RBC Distribution Width 17.5 % (11.5-14.5); Red Blood Cell (RBC) Count 3.28 mill/uL (4.20-5.40); White Blood Cell (WBC) Count 19.8 thou/uL (4.8-10.8)
[2020-06-03 05:23] LABS: Anion Gap 12 mmol/L (10-20); BUN (Urea Nitrogen) 9 mg/dL (9.8-20.1); Calc. Creatinine Clearance 95 mL/min (70-130); Calcium 8.1 mg/dL (7.8-10.44); Carbon Dioxide 21 mmol/L (22-29); Chloride 110 mmol/L (98-107); Estimated GFR-MDRD 68; Glucose 159 mg/dL (70-105); Potassium 4.3 mmol/L (3.5-5.1); Sodium 139 mmol/L (136-145)
--- NOTE | 2020-06-03 07:08 | PDOC.GSPN ---
Surgery Progress Note: Subj - Subjective Patient reports: no flatus, still having pain (pain is rep. 7/10) Surgery Progress Note: Obj - Vital signs Vital signs: Vital Signs - Most Recent Temp Pulse Resp BP Pulse Ox 98.5 F 81 171/129 H 95 06/03/20 04:00 06/03/20 00:39 06/03/20 00:39 06/02/20 20:00 - Physical Exam General: moderate distress, severe pain Cardiovascular: regular rate and rhythm Respiratory: wheezing Abdomen: soft, decreased bowel sounds, appropriately tender, tender Wound: dressing clean,dry,intact Surgery Progress Note: Results - Labs Result Diagrams: 06/03/20 04:25 06/03/20 04:25 Lab results: Laboratory Results - last 24 hr 06/02/20 06/02/20 06/03/20 14:37 20:41 00:01 WBC RBC Hgb Hct MCV MCH MCHC RDW Plt Count MPV Neutrophils % Lymphocytes % Monocytes % Eosinophils % Basophils % Neutrophils # Lymphocytes # Monocytes # Eosinophils # Basophils # Sodium Potassium Chloride Carbon Dioxide Anion Gap BUN Creatinine Estimated GFR (MDRD) Glucose POC Glucose 246 H 172 H 155 H Calcium 06/03/20 06/03/20 04:25 04:25 WBC 19.8 H RBC 3.28 L Hgb 9.9 L Hct 30.9 L MCV 94.3 MCH 30.1 MCHC 31.9 L RDW 17.5 H Plt Count 354 MPV 9.1 Neutrophils % 61.1 Lymphocytes % 27.2 Monocytes % 11.4 H Eosinophils % 0.1 Basophils % 0.3 Neutrophils # 12.1 H Lymphocytes # 5.4 H Monocytes # 2.3 H Eosinophils # 0.0 Basophils # 0.1 Sodium 139 Potassium 4.3 Chloride 110 H Carbon Dioxide 21 L Anion Gap 12 BUN 9 L Creatinine 0.87 Estimated GFR (MDRD) 68 Glucose 159 H POC Glucose Calcium 8.1 Hg was 10.0 at post operatively yesterday abd drainage at 250 ml ostomy output 1095 Surgery Progress Note: A/P - Problem (1) S/P hernia repair Current Visit: Yes Code(s): Z98.890 - OTHER SPECIFIED POSTPROCEDURAL STATES; Z87.19 - PERSONAL HISTORY OF OTHER DISEASES OF THE DIGESTIVE SYSTEM Status: Acute (2) S/P ileal conduit Current Visit: Yes Code(s): Z93.6 - OTHER ARTIFICIAL OPENINGS OF URINARY TRACT STATUS Status: Acute (3) Status post PICC central line placement Current Visit: Yes Code(s): Z95.828 - PRESENCE OF OTHER VASCULAR IMPLANTS AND GRAFTS Status: Acute (4) Leukocytosis Current Visit: Yes Code(s): D72.829 - ELEVATED WHITE BLOOD CELL COUNT, UNSPECIFIED Status: Acute - Plan Plan: Mrs. Montelongo is a post radical cystectomy with ileal conduit. She is having a lot of pain and did not sleep well last night. Wounds are healing and do not appear infected. Continue DVT prophylaxis and manage pain. Continue to monitor.
[2020-06-03] MEDS ORDERED: Lorazepam 2 MG/ML VIAL SLOW IVP PRN (07:33)
--- NOTE | 2020-06-03 08:01 | PRG ---
DATE OF SERVICE: 06/03/2020 SUBJECTIVE: Patient awake, epidural infusing, required bolus last night. She states that she has persistent discomfort. Denies nausea. Per nursing staff, patient threatened to leave AMA if she does not have p.o. fluids. OBJECTIVE: VITAL SIGNS are stable she is afebrile 98.5, heart rate 109. Blood pressure 135/89, hypertensive 154/106, 171/129 last night. 95% on room air. GENERAL: The patient appears fatigued consistent with recent surgery. HEART: Regular rate. LUNGS: Intermittent wheezing. ABDOMEN: Incision is clean, dry, and intact. Minimal serous discharge at the inferior aspect of the incision. LUCI is in place. Conduit is pink and viable, red-tinged hematuria from the ileal conduit. LUCI with serosanguineous fluid. EXTREMITIES: No cyanosis, clubbing, or edema. No calf tenderness. I's and O's 2260 in and 1335 out. LUCI output since OR 240. LABORATORY DATA: White count 19, hemoglobin 9.9, platelets 354. Coagulation profile is within normal limits. Sodium is 139, potassium 4.3, chloride 110, BUN 9, creatinine 0.87, glucose variable 228 to 159, calcium 8.1. Pathology pending. IMPRESSION AND PLAN: Ms. Montelongo is a 54-year-old female postop day #1 status post radical cystectomy, ileal conduit, bilateral pelvic lymph node dissection, pelvic exoneration. The patient will remain in ICU. Discussed with Pain Management. We will reassess her epidural; if malfunctioning or suboptimal placement, we will replace epidural if needed. The patient is n.p.o. except ice chips. Long discussion with patient regarding her clinical course. She has been very difficult to deal with socioeconomically, she has noncompliance with followup and routine workup. I spent a significant amount of time at bedside educating the patient that she will need to be monitored in-house due to her recent major surgery for convalescence and pain management. As there is component of anxiety, I will provide Ativan p.r.n. Intermittent wheezing, we will initiate albuterol nebs. Metabolic acidosis noted, consult hospitalist for medical management. Metabolic acidosis can be seen with ileal conduit, patient is underlying COPD. Cardiology on board due to uncontrolled hypertension, which is exacerbated by discomfort postop, however, during surgery , patient had hypertensive episodes likely consistent with poorly-controlled hypertension as an outpatient. Appreciate Cardiology input. Echocardiogram pending today. Job ID: [id number] [facility]
[2020-06-03] MEDS ORDERED: Prevnar 13-Val Conj/PF 0.5 ML SYRINGE IM ONE (09:00)
[2020-06-03] MEDS: Famotidine/PF 20 mg/2ml Vial SLOW IVP SCH ×2 (09:25→20:58)
--- NOTE | 2020-06-03 09:49 | CON ---
DATE OF CONSULTATION: 06/03/2020 CONSULTING PHYSICIAN: Dr. Carr/ICU protocol. REASON FOR CONSULTATION: ICU stay. HISTORY OF PRESENT ILLNESS: This is a 54-year-old who underwent radical cystectomy, ileal conduit, and bilateral pelvic lymph node dissection yesterday. She does have a history of underlying chronic obstructive pulmonary disease. I believe she is in the ICU for close nursing care, although does not appear that she has had any complications post surgery. PAST MEDICAL HISTORY: 1. Chronic obstructive pulmonary disease. 2. Bladder cancer. 3. Gastroesophageal reflux. 4. Hypertension. PAST SURGICAL HISTORY: 1. Laparotomy. 2. Splenectomy. 3. Spine surgery. SOCIAL HISTORY: Thirty pack-year history of smoking, currently not smoking. Does not consume alcohol. Does not use illicit drugs. FAMILY MEDICAL HISTORY: Unremarkable. ALLERGIES: ASPIRIN. MEDICATIONS: She is on omeprazole, aspirin at home. INPATIENT MEDICATIONS: Reviewed and listed in chart. REVIEW OF SYSTEMS: Remarkable for wheezing, abdominal pain from surgery. Otherwise, 12-point review of systems is negative. PHYSICAL EXAMINATION: VITAL SIGNS: Pulse 109, blood pressure 135/89, O2 saturation 95%, temperature 98.5. GENERAL: She appears to be in pain. HEENT: Unremarkable. NECK: No adenopathy or JVD. LUNGS: Diffuse mild wheezing. CARDIAC: S1 and S2 regular. ABDOMEN: Tender around surgical site. EXTREMITIES: No clubbing, cyanosis, or edema. LABORATORY DATA: White blood cell count 19, hematocrit 30.9, and platelet count 354. Sodium 139, potassium 4.3, BUN 9, creatinine 0.8, and glucose 159. A chest x-ray from yesterday demonstrates no mass, effusion, or infiltrate. ASSESSMENT: 1. Status post radical cystectomy, ileal conduit, etc. 2. Underlying chronic obstructive pulmonary disease with active wheezing. PLAN: 1. I will go ahead and put her on EzPAP with nebs. 2. Add nebulized steroids and nebulized Brovana. 3. Increase activity as soon as practical from surgical standpoint. Job ID: [id number]
[2020-06-03] MEDS: Dextrose 5 % And 0.9 % NaCl 1,000 ML IV SCH ×3 (10:09→20:40)
--- NOTE | 2020-06-03 11:49 | PDOC.CPN ---
- Subjective Date: 06/03/20 Time: 11:48 Interval history: She is doing better. Her pain is better controlled and her BP has been in the 100's to 130's since. - Review of Systems General: denies: fever/chills, weight/appetite/sleep changes, night sweats, fatigue Respiratory: denies: cough, congestion, shortness of breath, exercise intolerance Cardiovascular: denies: chest pain, palpitation, edema, paroxysmal nocturnal dyspnea, orthopnea Gastrointestinal: denies: nausea, vomiting, diarrhea, constipation, abd pain, GI bleeding Musculoskeletal: reports: pain. denies: tenderness, stiffness, swelling, arthritis/arthralgias Neurological: denies: numbness, syncope, seizure, weakness - Objective Allergies/Adverse Reactions: Allergies Allergy/AdvReac Type Severity Reaction Status Date / Time naproxen [From Naprosyn] Allergy Severe Anaphylaxis Verified 01/31/20 11:31 Visit Medications: Current Medications Acetaminophen (Tylenol) 500 mg PO Q4H PRN PRN Reason: MORENO/Fever > 101F/mild pain(1-3) Acetaminophen (Tylenol) 1,000 mg PO Q6H PRN PRN Reason: Mild Pain (1-3)/FEVER Hydrocodone Bitart/Acetaminophen (Jber 5/325) 1 tab PO Q4H PRN PRN Reason: Mild Pain 1-3 Hydrocodone Bitart/Acetaminophen (Jber 5/325) 2 tab PO Q4H PRN PRN Reason: For Moderate Pain 4-6 Last Admin: 06/03/20 00:39 Dose: 2 tab Albuterol/Ipratropium (Duoneb) 3 ml EZPAP P2IT-SH DEMETRIO Arformoterol Tartrate (Brovana) 15 mcg NEB BID-RT DEMETRIO Budesonide (Pulmicort Neb Solution) 0.5 mg INH BID-RT DEMETRIO Bupivacaine HCl (Marcaine) 5 ml EPIDURAL ONE PRN PRN Reason: UNCONTROLLED PAIN Stop: 06/03/20 19:49 Dextrose/Water (Dextrose 50%) 25 gm SLOW IVP PRN PRN PRN Reason: Hypoglycemia Diphenhydramine HCl (Benadryl) 25 mg IVP Q6H PRN PRN Reason: Itching Diphenhydramine HCl (Benadryl) 25 mg PO Q3H PRN PRN Reason: Itching Diphenhydramine HCl (Benadryl) 25 mg IM Q3H PRN PRN Reason: Itching Diphenhydramine HCl (Benadryl) 25 mg IVP Q3H PRN PRN Reason: Itching Emollient Cream (Hydrocerin Cream) 0 gm TOP PRN PRN PRN Reason: Itching Famotidine (Pepcid) 20 mg SLOW IVP Q12HR [facility] Last Admin: 06/03/20 09:25 Dose: 20 mg Glucagon (Glucagon) 1 mg IM PRN PRN PRN Reason: Hypoglycemia Hydralazine HCl (Apresoline) 20 mg SLOW IVP Q4H PRN PRN Reason: SBP greater than 160/100 Last Admin: 06/03/20 00:39 Dose: 20 mg Dextrose/Sodium Chloride (D5 0.9% Ns) 1,000 mls @ 125 mls/hr IV .Q8H [facility] Last Admin: 06/03/20 10:09 Dose: 1,000 mls Dextrose/Water (D5w) 1,000 mls @ 0 mls/hr IV .Q0M PRN PRN Reason: Hypoglycemia Ceftriaxone Sodium 2 gm/ (Sodium Chloride) 100 mls @ 200 mls/hr IVPB 1800 [facility] Last Admin: 06/02/20 18:14 Dose: 100 mls Fentanyl Citrate 500 mcg/Bupivacaine HCl 10 ml/ Sodium Chloride 100 mls @ 8 mls /hr EPIDURAL INF [facility] Last Admin: 06/03/20 02:33 Dose: 100 mls Lorazepam (Ativan) 1 mg SLOW IVP Q4H PRN PRN Reason: Anxiety/Agitation Last Admin: 06/03/20 08:35 Dose: 1 mg Miscellaneous Information (Communication Order-Pharmacy) 1 each FS ASDIR [facility] Naloxone HCl (Narcan) 0.2 mg IV Q5MIN PRN PRN Reason: RR <=8 OR OBTUNDED/UNAROUSABLE Naloxone HCl (Narcan) 0.1 mg IVP Q15MIN PRN PRN Reason: URINARY RETENTION Ondansetron HCl (Zofran) 4 mg IVP Q6H PRN PRN Reason: Nausea/Vomiting Last Admin: 06/03/20 08:35 Dose: 4 mg Promethazine HCl (Phenergan) 12.5 mg IM Q4H PRN PRN Reason: Nausea Promethazine HCl (Phenergan Suppository) [address] Q4H PRN PRN Reason: Nausea/Vomiting Sodium Chloride (Flush - Normal Saline) 10 ml IVF PRN PRN PRN Reason: Saline Flush Sodium Chloride (Flush - Normal Saline) 10 ml IVF PRN PRN PRN Reason: Saline Flush Tramadol HCl (Ultram) 50 mg PO Q6H PRN PRN Reason: Mild Pain 1-3 Tramadol HCl (Ultram) 100 mg PO Q6H PRN PRN Reason: Moderate Pain 4-6 Zolpidem Tartrate (Ambien) 5 mg PO HSPRN PRN PRN Reason: Insomnia Last Admin: 06/02/20 20:33 Dose: 5 mg Vital Signs & Weight: Vital Signs Temp Pulse BP 06/03/20 04:00 98.5 F 06/03/20 00:39 81 171/129 H 06/03/20 00:00 98.8 F Weight 175 lb 7.807 oz - Physical Exam General: alert & oriented x3, no apparent distress HEENT: mucus membranes moist Neck: supple neck Cardiac: regular rate and rhythm, tachycardia Lungs: decreased breath sounds Neuro: grossly intact Abdomen: active bowel sounds Extremities: 1+ LE edema Skin: clear Musculoskeletal: no pain - Labs Result Diagrams: 06/03/20 04:25 06/03/20 04:25 - Telemetry Sinus rhythms and dysrhythmias: sinus tachycardia - Assessment/Plan Assessment/Plan: 1. Post operative HTN, resolved. 2. Post operative pain, improved. 3. Bladder cancer. 4. S/P cystectomy with ileal conduit. PLAN: - Continue PRN hydralazine only. - Adequate pain control at this time and BP back to normal. . - Will follow along.
[2020-06-03] MEDS ORDERED: metroNIDAZOLE 500 MG in Premix Bag 1 BAG IVPB SCH (14:30)
[2020-06-03] MEDS ORDERED: Albuterol Sulfate 1.25 MG/3 ML NEB NEB SCH (15:00)
--- NOTE | 2020-06-03 16:23 | PRG ---
DATE OF SERVICE: 06/03/2020 SUBJECTIVE: Codi Montelongo is doing well. She is in the ICU. She is sleepy. The pain seems to be well controlled. OBJECTIVE: VITAL SIGNS: Heart rate 106, blood pressure 163/99. Urine output is acceptable. LUNGS: Clear to auscultation. CARDIAC: Regular rate and rhythm without murmur or gallop. ABDOMEN: Soft. Diminished bowel sounds. EXTREMITIES: Unremarkable. LABORATORY DATA: White count 19, hemoglobin 9.9. Basic metabolic profile normal. ASSESSMENT AND PLAN: Doing well after cystectomy, ileal conduit, lysis of adhesions, ventral hernia repair, and central line. Continue current management. Continue sips and chips for now. Await better gastrointestinal function. Anticipate moving to the floor tomorrow. Job ID: [id number]
[2020-06-03] MEDS: cefTRIAXone\\ROCEPHIN 2 GM in Sodium Chloride 0.9% 100 ML IVPB SCH (17:28)
[2020-06-03] MEDS: Arformoterol 15 MCG/2 ML NEB NEB SCH (19:16)
[2020-06-03] MEDS: Budesonide 0.5 MG/2 ML NEB INH SCH (19:16)
[2020-06-03] MEDS: metroNIDAZOLE 500 MG in Premix Bag 1 BAG IVPB SCH (21:07)
--- NOTE | 2020-06-03 21:56 | CON ---
DATE OF CONSULTATION: REASON FOR CONSULTATION: Medical management. BRIEF HISTORY OF PRESENT ILLNESS: This is a 54-year-old female who was admitted for elective surgery for bladder cancer. The patient underwent a radical cystectomy , ileal conduit, bilateral lymph node dissection, lysis of adhesions, SBO anastomosis and incisional hernia repair on 06/02. She also had a hysterectomy and oophorectomy. Postoperatively, the patient has been having significant abdominal pain. She states that it is worse with any type of movement. She reports that her appetite is diminished, because of the abdominal pain. She said it is sharp, diffuse, constant. Her pain has improved slightly from this morning with pain medications and she was noted to be a little bit drowsy when I had seen her. She denies any nausea or vomiting. The patient states she has not been allowed to eat since her surgery. She denies chest pain or shortness of breath. PAST SURGICAL HISTORY: 1. Laparotomy. 2. Splenectomy. 3. Spinal surgery. 4. She had a TURBT on 10/02 and 11/01, which showed invasion of the muscle and warranted total cystectomy. 5. MediPort placement on 02/01/2020. SOCIAL HISTORY: The patient previously smoked for 30 pack years. She does use marijuana occasionally. She denies cocaine or heroin use. She works as a hospital housekeeper. FAMILY HISTORY: The patient denies any family history of cancer. AMBULATORY MEDICATIONS: 1. Aspirin 81 mg p.o. daily. 2. Omeprazole 20 mg p.o. daily. ALLERGIES: THE PATIENT REPORTS AN ALLERGY TO NAPROXEN. SHE ALSO STATES THAT SHE IS ALLERGIC TO PENICILLIN AND STATES THAT THROAT CLOSES UP; HOWEVER SHE HAS TOLERATED CEFTRIAXONE WITHOUT ANY ANAPHYLAXIS SYMPTOMS. PERTINENT LABORATORY DATA: CBC 06/03: White count 19.8, hemoglobin 9.9, hematocrit 30.9, platelet count 354. BMP 06/03: Normal. IMAGIN. Abdominal x-ray on 06/02: unremarkable 2. Chest x-ray on 06/02: unremarkable . 3. Echo: EF 60% to 65%. Mild mitral annular calcification. Mild MR. Fida-[id number] tricuspid regurgitation. Right ventricular systolic pressure estimated at 35 mmHg. Grade 1/3 diastolic dysfunction. ASSESSMENT AND PLAN: This is a 54-year-old female with a past medical history of bladder cancer who was admitted electively for radical cystectomy, bilateral pelvic lymph node dissection, hysterectomy, oophorectomy, as well as lysis of adhesions with small bowel anastomosis and incisional hernia repair. 1. Abdominal pain: Likely postoperative pain related. - Her white blood cell count has come down to 19.8. She is on ceftriaxone. However, given that this is inadequate anaerobic coverage, I will add Flagyl. She will continue her hydrocodone p.r.n. for pain. - she is also on epidural by anasthesia for pain control 2. Anemia: Hemoglobin is 9.9. We will continue to trend. 3. Hypertension: Blood pressure is controlled on 142/91. We will continue to monitor. 4. Sinus tachycardia: Likely secondary to pain. Continue pain medication and IV fluids as tolerated. Thank you for this consult. We will continue to follow. Job ID: [id number] MTDD
[2020-06-04] MEDS: traMADol HCl 50 MG TAB PO PRN (00:10)
[2020-06-04] MEDS: Dextrose 5 % And 0.9 % NaCl 1,000 ML IV SCH ×3 (04:47→22:12)
[2020-06-04 05:02] LABS: Anion Gap 10 mmol/L (10-20); BUN (Urea Nitrogen) 8 mg/dL (9.8-20.1); Calc. Creatinine Clearance 110 mL/min (70-130); Calcium 7.5 mg/dL (7.8-10.44); Carbon Dioxide 22 mmol/L (22-29); Chloride 108 mmol/L (98-107); Estimated GFR-MDRD 81; Glucose 147 mg/dL (70-105); Potassium 3.8 mmol/L (3.5-5.1); Sodium 136 mmol/L (136-145)
[2020-06-04 05:09] LABS: Hemoglobin 8.2 g/dL (12.0-16.0); Mean Corpuscular HGB CONC 31.2 g/dL (32.0-36.0); Mean Corpuscular Hemoglobin 29.8 pg (27.0-31.0); Mean Corpuscular Volume 95.8 fL (78.0-98.0); Mean Platelet Volume 9.5 fL (7.4-10.4); Platelet Count 252 thou/uL (130-400); RBC Distribution Width 17.9 % (11.5-14.5); Red Blood Cell (RBC) Count 2.75 mill/uL (4.20-5.40); White Blood Cell (WBC) Count 26.3 thou/uL (4.8-10.8)
[2020-06-04] MEDS: metroNIDAZOLE 500 MG in Premix Bag 1 BAG IVPB SCH (05:25)
[2020-06-04] MEDS: fentaNYL Citrate/PF 500 MCG, Bupivacaine 10 ML in Sodium Chloride 0.9% 80 ML EPIDURAL SCH (05:25)
[2020-06-04 05:40] LABS: Band 13 % (5-11); Lymphocytes 20 % (21-51); MDiff Complete? YES; Monocytes 11 % (0-10); Neutrophil 55 % (42-75)
--- NOTE | 2020-06-04 07:23 | PDOC.GSPN ---
Surgery Progress Note: Subj - Subjective Patient reports: feels better, no flatus, pain is less Narrative: Patient is a 54F day 2 post op cystectomy with ileal conduit. She is still in some pain. Nurse reports an episode of tachycardia around midnight which she thinks may be from pain. Surgery Progress Note: Obj - Vital signs Vital signs: Vital Signs - Most Recent Temp Pulse Resp BP Pulse Ox 98.1 F 104 H 18 146/89 H 96 06/04/20 04:00 06/04/20 00:24 06/04/20 00:24 06/04/20 00:00 06/04/20 00:24 - Physical Exam General: moderate pain Cardiovascular: regular rate and rhythm Respiratory: wheezing Abdomen: soft, decreased bowel sounds, appropriately tender Wound: dressing clean,dry,intact, healing well Surgery Progress Note: Results - Labs Result Diagrams: 06/04/20 03:58 06/04/20 03:30 Lab results: Laboratory Results - last 24 hr 06/03/20 06/03/20 06/03/20 16:36 20:14 23:46 WBC RBC Hgb Hct MCV MCH MCHC RDW Plt Count MPV Neutrophils % (Manual) Band Neuts % (Manual) Lymphocytes % (Manual) Monocytes % (Manual) Basophils % (Manual) Lymphocytes # Sodium Potassium Chloride Carbon Dioxide Anion Gap BUN Creatinine Estimated GFR (MDRD) Glucose POC Glucose 137 H 150 H 134 H Calcium 06/04/20 06/04/20 06/04/20 03:30 03:58 03:58 WBC 26.3 H RBC 2.75 L Hgb 8.2 L Hct 26.4 L MCV 95.8 MCH 29.8 MCHC 31.2 L RDW 17.9 H Plt Count 252 MPV 9.5 Neutrophils % (Manual) 55 Band Neuts % (Manual) 13 H Lymphocytes % (Manual) 20 L Monocytes % (Manual) 11 H Basophils % (Manual) 1 Lymphocytes # Not Reportable Sodium 136 Potassium 3.8 Chloride 108 H Carbon Dioxide 22 Anion Gap 10 BUN 8 L Creatinine 0.75 Estimated GFR (MDRD) 81 Glucose 147 H POC Glucose 156 H Calcium 7.5 L Hg is down from 9.9 yesterday WBC up from 19.8 yesterday LUCI drain 160 ostomy 1420 Surgery Progress Note: A/P - Problem (1) S/P hernia repair Current Visit: Yes Code(s): Z98.890 - OTHER SPECIFIED POSTPROCEDURAL STATES; Z87.19 - PERSONAL HISTORY OF OTHER DISEASES OF THE DIGESTIVE SYSTEM Status: Acute (2) S/P ileal conduit Current Visit: Yes Code(s): Z93.6 - OTHER ARTIFICIAL OPENINGS OF URINARY TRACT STATUS Status: Acute (3) Status post PICC central line placement Current Visit: Yes Code(s): Z95.828 - PRESENCE OF OTHER VASCULAR IMPLANTS AND GRAFTS Status: Acute (4) Leukocytosis Current Visit: Yes Code(s): D72.829 - ELEVATED WHITE BLOOD CELL COUNT, UNSPECIFIED Status: Acute (5) Postoperative anemia Current Visit: Yes Code(s): D64.9 - ANEMIA, UNSPECIFIED Status: Acute - Plan Plan: patient is doing better on day 2 post op from a pain standpoint. Her Hgb went down from 9.9 to 8.2 today, which will be monitored for bleeding. WBC up to 26.3 from 19.8 which will also be monitored. She can continue diet of sips of water and ice chips.
--- NOTE | 2020-06-04 07:48 | PRG ---
DATE OF SERVICE: 06/04/2020 SUBJECTIVE: The patient is doing well. Had no acute complaints. She wants to get up and out of bed. OBJECTIVE: VITAL SIGNS: On exam, temperature 98.1, pulse 103, blood pressure 123/75, and O2 saturation 94%. Intake 3501, output 1580. HEENT: Unremarkable. NECK: No adenopathy or JVD. LUNGS: Clear without wheezing. CARDIAC: S1 and S2. Regular. ABDOMEN: Surgical findings noted. EXTREMITIES: No edema. LABORATORY DATA: White blood cell count is 26.3, hematocrit 26.4, and platelet count 252. Sodium 136, potassium 3.8, chloride 108, CO2 of 22, BUN 8, creatinine 0.7, and glucose 147. ASSESSMENT: 1. Status post radical cystectomy, ileal conduit, etc. 2. Underlying chronic obstructive pulmonary disease, which is better after nebs, inhaled steroids and Brovana. 3. Elevated white blood cell count, probably related to her postoperative state, as I do not think she has pneumonia based on exam. PLAN: 1. She is already on antibiotics. 2. Continue inhaled steroids and nebulization treatments. 3. She is stable for transfer to the floor from a pulmonary perspective. Job ID: [id number]
[2020-06-04] MEDS: Arformoterol 15 MCG/2 ML NEB NEB SCH ×2 (07:58→19:05)
[2020-06-04] MEDS: Budesonide 0.5 MG/2 ML NEB INH SCH ×2 (07:59→19:05)
[2020-06-04] MEDS ORDERED: Furosemide 40 MG/4 ML VIAL ONE (09:09)
[2020-06-04] MEDS: Famotidine/PF 20 mg/2ml Vial SLOW IVP SCH ×2 (09:11→20:04)
[2020-06-04] MEDS ORDERED: Meropenem 2 GM in Admixture Fee 1 EACH IVPB SCH (10:00)
[2020-06-04] MEDS ORDERED: Furosemide 40 MG/4 ML VIAL SLOW IVP SCH (10:22)
[2020-06-04] MEDS: Meropenem 2 GM in Sodium Chloride 0.9% 100 ML IVPB SCH ×2 (10:39→18:47)
[2020-06-04] MEDS: Bupivacaine 10 ML in Sodium Chloride 0.9% 90 ML EPIDURAL SCH ×2 (11:06→20:03)
[2020-06-04 11:15] LABS: Hemoglobin 8.8 g/dL (12.0-16.0)
[2020-06-04] MEDS ORDERED: Enoxaparin Sodium 40 MG/0.4 ML SYRINGE SC SCH (11:30)
--- NOTE | 2020-06-04 11:38 | PRG ---
DATE OF SERVICE: 06/04/2020 SUBJECTIVE: The patient is more alert today, she continues to remain noncompliant with postoperative instructions of n.p.o. except medications. She is seen drinking glass of water. This has been a persistent issue with the patient where she has difficulty following directions. I have explained to her multiple times regarding need for bowel rest due to recent ileal conduit and urinary diversion. OBJECTIVE: VITAL SIGNS: Stable. Temperature 98, heart rate 103, respirations 19, oxygen saturation 94, and blood pressure 123/75. Her pain is adequately controlled. She is positive 7 pounds since admission. I's and O's are 3500 in and 1580 out , she is positive 1.9 L. HEART: Regular rate. LUNGS: Clear. ABDOMEN: Mildly distended. Bowel sounds are diminished; however, present. Incision is clean, dry, and intact. LUCI is more serous than sanguinous, improving for sanguinous component. Urine output is concentrated yellow with no significant hematuria as this improved. EXTREMITIES: No cyanosis, clubbing, erythema, or calf tenderness. LABORATORY DATA: White count today is 26,000, hemoglobin 8.2 and recheck hemoglobin is 8.8, platelets 252, and 13 bands. Coagulation profile is within normal limits. Sodium 136, potassium 3.8, chloride improved to 108, BUN 8, and creatinine 0.75. Her blood sugar has been running in the 160s to 150s. Pathology is pending. IMPRESSION AND PLAN: Ms. Montelongo is a 54-year-old female, postoperative day #2 of radical cystectomy, bilateral pelvic lymph node dissection, ileal conduit, pelvic exoneration, incisional hernia repair, and lysis of adhesion. dw with Pain Service, as she has been receiving fentanyl, which can exacerbate ileus, they will discontinue the fentanyl component and provide regional epidural only. She is strict n.p.o. except medications. Importance of compliance with bowel rest. I informed the patient on multiple occasions. As her hemoglobin and hematocrit are stable, we will start her Lovenox for deep vein thrombosis prophylaxis. I will transition her to surgical floor, so that we may initiate more aggressive walking program and the patient to be out of bed. Postoperative care has been difficult for this patient as she is noncompliant even with postoperative instructions. We will watch her closely. Monitor CBC. Agree with transitioning to a more broad- spectrum antibiotic therapy due to leukocytosis. It is possibility that she did not have a good bowel prep preprocedure as well. Agree with meropenem, which will have anaerobic coverage. Flagyl discontinued, which was initiated by the hospitalist. Metabolic acidosis is improving. We will continue her IV fluids. Job ID: [id number] MTDD
--- NOTE | 2020-06-04 15:32 | PDOC.HOSPP ---
- Subjective Encounter Date: 06/04/20 Encounter Time: 07:30 Subjective: The patient was seen sitting on the chair, was noted to have significant abdominal pain with dressing change. She has no SOB or cough. Per nursing, amna was re-evaluating the epidural to see if it is in the right place. Patient is able to move her lower extremites She complains of being thirsty - Objective Vital Signs & Weight: Vital Signs (12 hours) Temp Pulse Resp Pulse Ox 06/04/20 14:31 110 H 16 06/04/20 08:00 100 06/04/20 07:55 98 21 H 94 L 06/04/20 07:00 98.6 F 06/04/20 04:00 98.1 F Weight Admit Weight 175 lb Weight 175 lb 7.807 oz Most Recent Monitor Data Heart Rate from ECG 108 NIBP 145/87 NIBP BP-Mean 106 Respiration from ECG 15 SpO2 93 I&O: 06/03/20 06/04/20 06/05/20 06:59 06:59 06:59 Intake Total 2260 3501 Output Total 1335 1580 620 Balance 925 1921 -620 Result Diagrams: 06/04/20 10:54 06/04/20 03:30 Additional Labs: Accuchecks 06/04/20 06/03/20 06/03/20 03:58 23:46 20:14 POC Glucose 156 H 134 H 150 H 06/03/20 16:36 POC Glucose 137 H Hospitalist ROS - Review of Systems Constitutional: denies: fever, chills - Medication Medications: Active Medications Generic Name Dose Route Start Last Admin Trade Name Dallin PRN Reason Stop Dose Admin Albuterol/Ipratropium 3 ml 06/03/20 13:00 06/04/20 14:31 Duoneb EZPAP 3 ml [id number] DEMETRIO Administration Arformoterol Tartrate 15 mcg 06/03/20 18:30 06/04/20 07:58 Brovana NEB 15 mcg BID-RT DEMETRIO Administration Budesonide 0.5 mg 06/03/20 18:30 06/04/20 07:59 Pulmicort Neb Solution INH 0.5 mg BID-RT DEMETRIO Administration Famotidine 20 mg 06/02/20 21:00 06/04/20 09:11 Pepcid SLOW IVP 20 mg Q12HR DEMETRIO Administration Hydralazine HCl 20 mg 06/02/20 15:41 06/03/20 00:39 Apresoline SLOW IVP 20 mg Q4H PRN Administration SBP greater than 160/100 Dextrose/Sodium Chloride 1,000 mls @ 125 mls/hr 06/02/20 16:45 06/04/20 04:47 D5 0.9% Ns IV 1,000 mls .Q8H DEMETRIO Administration Meropenem 2 gm/ Sodium 100 mls @ 0 mls/hr 06/04/20 10:00 06/04/20 10:39 Chloride IVPB 100 mls 0200,1000,1800 DEMETRIO Administration Bupivacaine HCl 10 ml/ Sodium 100 mls @ 12 mls/hr 06/04/20 10:30 06/04/20 11: 06 Chloride EPIDURAL 100 mls INF DEMETRIO Administration Ondansetron HCl 4 mg 06/02/20 19:48 06/03/20 08:35 Zofran IVP 4 mg Q6H PRN Administration Nausea/Vomiting Tramadol HCl 100 mg 06/02/20 19:48 06/04/20 00:10 Ultram PO 100 mg Q6H PRN Administration Moderate Pain 4-6 Zolpidem Tartrate 5 mg 06/02/20 19:49 06/02/20 20:33 Ambien PO 5 mg HSPRN PRN Administration Insomnia - Exam General Appearance: NAD, awake alert Eye: PERRL, anicteric sclera ENT: normocephalic atraumatic, no oropharyngeal lesions Neck: no JVD Heart: RRR, no murmur, no gallops, no rubs Respiratory: CTAB, no wheezes, no rales, no ronchi Gastrointestinal: soft, non-tender, non-distended, normal bowel sounds, no splenomegaly Extremities: no cyanosis, no clubbing, no edema Skin: normal turgor, no lesions, no rashes Neurological: cranial nerve grossly intact, normal sensation to touch, no focal deficits, no new deficit Musculoskeletal: normal tone, normal strength, no muscle wasting Psychiatric: normal affect, normal behavior, A&O x 3, oriented to person Hosp A/P - Plan This is a 54 year old female with PMH of bladder cancer admitted for radical cystectomy, bilateral pelvic LN dissection, hysterectomy, oopherectomy, and lysis of adhesions with small bowel anastamosis and incisional hernia repair Abdominal pain s/p radical cystectomy, bilateral pelvic LN dissection, hysterectomy, oopherectomy, and lysis of adhesions with small bowel anastamosis and incisional hernia repair - anasthesia is re-evaluating epidural - WBC has increased to 26. I have switched ceftriaxone to meropenem. Discontinue flagyl - re-imaging at discretion of general surgery/urology Anemia - Hb stable at 9, check folate/B12/TSH in am Hypertension - likely secondary to pain - BP ranging from 140-150, will continue to monitor Sinus tachycardia - improved. Continue IV fluids
[2020-06-04] MEDS ORDERED: Ketorolac Tromethamine 30 MG/ML VIAL ONE (15:39)
--- NOTE | 2020-06-04 17:33 | PDOC.CPN ---
- Subjective Date: 06/04/20 Time: 17:32 Interval history: No new issues. BP well controlled with pain control. - Review of Systems General: denies: fever/chills, weight/appetite/sleep changes, night sweats, fatigue Respiratory: denies: cough, congestion, shortness of breath, exercise intolerance Cardiovascular: denies: chest pain, palpitation, edema, paroxysmal nocturnal dyspnea, orthopnea Gastrointestinal: denies: nausea, vomiting, diarrhea, constipation, abd pain, GI bleeding Musculoskeletal: denies: pain, tenderness, stiffness, swelling, arthritis/ arthralgias Neurological: denies: numbness, syncope, seizure, weakness - Objective Allergies/Adverse Reactions: Allergies Allergy/AdvReac Type Severity Reaction Status Date / Time naproxen [From Naprosyn] Allergy Severe Anaphylaxis Verified 01/31/20 11:31 Visit Medications: Current Medications Acetaminophen (Tylenol) 500 mg PO Q4H PRN PRN Reason: MORENO/Fever > 101F/mild pain(1-3) Acetaminophen (Tylenol) 1,000 mg PO Q6H PRN PRN Reason: Mild Pain (1-3)/FEVER Albuterol/Ipratropium (Duoneb) 3 ml EZPAP [id number] DEMETRIO Last Admin: 06/04/20 14:31 Dose: 3 ml Arformoterol Tartrate (Brovana) 15 mcg NEB BID-RT DEMETRIO Last Admin: 06/04/20 07:58 Dose: 15 mcg Budesonide (Pulmicort Neb Solution) 0.5 mg INH BID-RT DEMETRIO Last Admin: 06/04/20 07:59 Dose: 0.5 mg Dextrose/Water (Dextrose 50%) 25 gm SLOW IVP PRN PRN PRN Reason: Hypoglycemia Diphenhydramine HCl (Benadryl) 25 mg IVP Q6H PRN PRN Reason: Itching Diphenhydramine HCl (Benadryl) 25 mg PO Q3H PRN PRN Reason: Itching Diphenhydramine HCl (Benadryl) 25 mg IM Q3H PRN PRN Reason: Itching Diphenhydramine HCl (Benadryl) 25 mg IVP Q3H PRN PRN Reason: Itching Emollient Cream (Hydrocerin Cream) 0 gm TOP PRN PRN PRN Reason: Itching Enoxaparin Sodium (Lovenox) 40 mg SC 0900 [facility] Famotidine (Pepcid) 20 mg SLOW IVP Q12HR [facility] Last Admin: 06/04/20 09:11 Dose: 20 mg Glucagon (Glucagon) 1 mg IM PRN PRN PRN Reason: Hypoglycemia Hydralazine HCl (Apresoline) 20 mg SLOW IVP Q4H PRN PRN Reason: SBP greater than 160/100 Last Admin: 06/03/20 00:39 Dose: 20 mg Dextrose/Sodium Chloride (D5 0.9% Ns) 1,000 mls @ 125 mls/hr IV .Q8H [facility] Last Admin: 06/04/20 04:47 Dose: 1,000 mls Dextrose/Water (D5w) 1,000 mls @ 0 mls/hr IV .Q0M PRN PRN Reason: Hypoglycemia Meropenem 2 gm/ Sodium (Chloride) 100 mls @ 0 mls/hr IVPB 0200,1000,1800 [facility] Last Admin: 06/04/20 10:39 Dose: 100 mls Bupivacaine HCl 10 ml/ Sodium (Chloride) 100 mls @ 12 mls/hr EPIDURAL INF [facility] Last Admin: 06/04/20 11:06 Dose: 100 mls Ketorolac Tromethamine (Toradol) 30 mg IVP Q6H [facility] Stop: 06/09/20 23:01 Lorazepam (Ativan) 1 mg SLOW IVP Q6H PRN PRN Reason: Anxiety/Agitation Miscellaneous Information (Communication Order-Pharmacy) 1 each FS ASDIR [facility] Naloxone HCl (Narcan) 0.2 mg IV Q5MIN PRN PRN Reason: RR <=8 OR OBTUNDED/UNAROUSABLE Naloxone HCl (Narcan) 0.1 mg IVP Q15MIN PRN PRN Reason: URINARY RETENTION Ondansetron HCl (Zofran) 4 mg IVP Q6H PRN PRN Reason: Nausea/Vomiting Last Admin: 06/03/20 08:35 Dose: 4 mg Promethazine HCl (Phenergan) 12.5 mg IM Q4H PRN PRN Reason: Nausea Promethazine HCl (Phenergan Suppository) 25 mg WA Q4H PRN PRN Reason: Nausea/Vomiting Sodium Chloride (Flush - Normal Saline) 10 ml IVF PRN PRN PRN Reason: Saline Flush Sodium Chloride (Flush - Normal Saline) 10 ml IVF PRN PRN PRN Reason: Saline Flush Sodium Chloride (Flush - Normal Saline) 10 ml IVF PRN PRN PRN Reason: Saline Flush Tramadol HCl (Ultram) 50 mg PO Q6H PRN PRN Reason: Mild Pain 1-3 Tramadol HCl (Ultram) 100 mg PO Q6H PRN PRN Reason: Moderate Pain 4-6 Last Admin: 06/04/20 00:10 Dose: 100 mg Zolpidem Tartrate (Ambien) 5 mg PO HSPRN PRN PRN Reason: Insomnia Last Admin: 06/02/20 20:33 Dose: 5 mg Vital Signs & Weight: Vital Signs Temp Pulse Resp BP Pulse Ox 06/04/20 14:31 110 H 16 06/04/20 12:50 97.9 F 101 H 18 135/75 95 06/04/20 08:00 100 06/04/20 07:55 98 21 H 94 L 06/04/20 07:00 98.6 F Admit Weight 175 lb Weight 175 lb 7.807 oz - Physical Exam General: alert & oriented x3 HEENT: mucus membranes moist Neck: supple neck Cardiac: regular rate and rhythm Lungs: normal breath sounds Neuro: grossly intact Abdomen: active bowel sounds Extremities: no edema Skin: clear Musculoskeletal: no pain - Labs Result Diagrams: 06/04/20 10:54 06/04/20 03:30 - Telemetry Sinus rhythms and dysrhythmias: sinus rhythm - Assessment/Plan Assessment/Plan: 1. Post operative HTN, resolved. 2. Post operative pain, improved. 3. Bladder cancer. 4. S/P cystectomy with ileal conduit. PLAN: - Continue PRN hydralazine only. - Adequate pain control at this time and BP back to normal. . - Will sign off. Please call with any questions.
[2020-06-04] MEDS: Ketorolac Tromethamine 30 MG/ML VIAL IVP SCH (22:20)
--- NOTE | 2020-06-04 22:30 | PRG ---
DATE OF SERVICE: 06/04/2020 SUBJECTIVE: Ms. Montelongo has been moved to the surgical floor. She is actually doing well. Her pain is under fairly good control with epidural. OBJECTIVE: VITAL SIGNS: 98.4 degrees, 99, and 127/77. Urine output is good. LUNGS: Clear to auscultation. CARDIAC: Regular rate and rhythm without murmur or gallop. ABDOMEN: Soft. Diminished bowel sounds. The patient reports belching, but no flatus or stool. LABORATORY DATA: Her laboratories hemoglobin 8.8 and hematocrit 27. Basic metabolic profile is normal. ASSESSMENT AND PLAN: 1. Doing well. Continue sips and chips. Hold off starting liquids until belching resolves and better bowel function. 2. Increase activity. 3. Await pathology. Job ID: [id number]
[2020-06-05] MEDS: traMADol HCl 50 MG TAB PO PRN ×3 (01:08→17:50)
[2020-06-05] MEDS: Dextrose 5 % And 0.9 % NaCl 1,000 ML IV SCH ×3 (01:16→15:38)
[2020-06-05] MEDS: Meropenem 2 GM in Sodium Chloride 0.9% 100 ML IVPB SCH ×3 (02:35→17:45)
[2020-06-05] MEDS: Ketorolac Tromethamine 30 MG/ML VIAL IVP SCH ×4 (04:25→23:31)
[2020-06-05] MEDS: Bupivacaine 10 ML in Sodium Chloride 0.9% 90 ML EPIDURAL SCH ×3 (04:26→20:31)
[2020-06-05 05:36] LABS: #Eosinphils 0.3 thou/uL (0.0-0.7); #Lymphocytes 4.6 thou/uL (1.20-3.40); #Monocytes 2.1 thou/uL (0.11-0.59); #Neutrophils 13.9 thou/uL (1.40-6.50); %Eosinophils 1.3 % (0.0-10.0); %Lymphocytes 21.9 % (21.0-51.0); %Monocytes 10.1 % (0.0-10.0); %Neutrophils 66.6 % (42.0-75.0); Mean Corpuscular Hemoglobin 29.8 pg (27.0-31.0); Mean Corpuscular Volume 95.9 fL (78.0-98.0); Mean Platelet Volume 8.8 fL (7.4-10.4); Platelet Count 251 thou/uL (130-400); RBC Distribution Width 17.6 % (11.5-14.5); Red Blood Cell (RBC) Count 2.69 mill/uL (4.20-5.40); White Blood Cell (WBC) Count 20.8 thou/uL (4.8-10.8)
[2020-06-05 06:02] LABS: Anion Gap 12 mmol/L (10-20); BUN (Urea Nitrogen) 11 mg/dL (9.8-20.1); Calc. Creatinine Clearance 95 mL/min (70-130); Calcium 7.5 mg/dL (7.8-10.44); Carbon Dioxide 22 mmol/L (22-29); Chloride 107 mmol/L (98-107); Estimated GFR-MDRD 68; Glucose 132 mg/dL (70-105); Potassium 3.5 mmol/L (3.5-5.1); Sodium 137 mmol/L (136-145)
[2020-06-05] MEDS: Arformoterol 15 MCG/2 ML NEB NEB SCH ×2 (07:12→18:30)
[2020-06-05] MEDS: Budesonide 0.5 MG/2 ML NEB INH SCH ×2 (07:12→18:30)
--- NOTE | 2020-06-05 07:47 | PRG ---
DATE OF SERVICE: 06/05/2020 SUBJECTIVE: The patient is alert and awake, currently pain is adequately controlled with her bupivacaine epidural, fentanyl has been discontinued. She denies nausea, may have passed a tiny amount of flatus, she is unsure. Belching; however, no emesis and no nausea. She is on ice chips, with sips of water. OBJECTIVE: VITAL SIGNS: Stable. She is 98, 92, 20, 97, blood pressure stable. I's and O's still being calculated by the nursing; however, LUCI output has increased to 330 over the last 24 hours and is mostly serous pink tinged. Urostomy output 620+ over the last 12 hours. GENERAL: The patient is in no acute distress. HEENT: Unremarkable. HEART: Regular. LUNGS: Clear. ABDOMEN: Distended as previous. There are better bowel sounds today, but diminished. Bowel sounds are more active than yesterday. Incision has saturated dressing from leakage from the stoma site. This was changed by nursing staff this morning with a new conduit appliance. I did inspect her wound and manual pressure demonstrates no obvious discharge from the incision itself. LUCI dressing changed. Her abdominal incision is open to air, which the dressing was removed to minimize saturation from the leakage from the urostomy site, if it leaks. EXTREMITIES: No cyanosis, clubbing, or edema. No calf tenderness is appreciated. PERTINENT LABORATORY DATA: [place] [address] [place] [address], hemoglobin stable at 8.0, platelet is 251. BMP profile is within normal limits. Creatinine 0.87. pathology demonstrating no residual cancer, pathologic T0N0, lymph node negative for metastatic disease. News was given to the patient regarding her resolution of her bladder cancer. IMPRESSION AND PLAN: Ms. Montelongo is a 54-year-old female, postoperative day #3, status post radical cystectomy, bilateral pelvic lymph node dissection, pelvic exoneration, ileal conduit, incisional hernia repair. Pathologic T0N0 high-grade muscle invasive bladder cancer. The patient is happy with the news as expected. Continue broad-spectrum antibiotics with meropenem due to leukocytosis, which is improving with resolution of bandemia. Await further increase in her bowel function, ice chips and sips of water only. Continue IV fluids. PT, Wound Care has been consulted regarding the patient to be aggressively out of bed, stoma teaching. 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 Continue epidural, Toradol, Lovenox.,IV atb Job ID: [id number] MTDD
[2020-06-05] MEDS ORDERED: Enoxaparin Sodium 40 MG/0.4 ML SYRINGE SC SCH (09:00)
[2020-06-05] MEDS ORDERED: Morphine 4 MG/ML VIAL SLOW IVP PRN (09:54)
[2020-06-05] MEDS: Famotidine/PF 20 mg/2ml Vial SLOW IVP SCH ×2 (09:55→20:31)
[2020-06-05] MEDS: Enoxaparin Sodium 40 MG/0.4 ML SYRINGE SC SCH (09:56)
--- NOTE | 2020-06-05 11:09 | RAD ---
EXAM: Single view of the abdomen HISTORY: Bilateral ureteral stent placement. Postoperative ileus COMPARISON: 06/02/2020 FINDINGS: Single view of the abdomen shows dilated air-filled loops of small bowel. There are bilater al ureteral stents that are unchanged in position and likely courses out through an ileal conduit. Midline skin yeimi are seen. No suspicious calcifications are seen. Cholecystectomy clips are seen . Multiple surgical clips are seen in the pelvis. The bones are unremarkable. IMPRESSION: Bowel gas pattern may represent a postoperative ileus or bowel obstruction.
--- NOTE | 2020-06-05 11:34 | PDOC.GSPN ---
Surgery Progress Note: Subj - Subjective Patient reports: no flatus, pain is less (describes as a 5/10) Narrative: Mrs. Montelongo is day 3 s/p radical cystectomy with ileal conduit. She is doing much better than yesterday. She reports that she plans to walk around with the nurse or PT. Surgery Progress Note: Obj - Vital signs Vital signs: Vital Signs - Most Recent Temp Pulse Resp BP Pulse Ox 97.6 F 88 18 141/87 H 98 06/05/20 07:35 06/05/20 07:35 06/05/20 07:35 06/05/20 07:35 06/05/20 07:35 - Physical Exam Cardiovascular: regular rate and rhythm Respiratory: wheezing Abdomen: soft, decreased bowel sounds, appropriately tender Wound: dressing clean,dry,intact, healing well Surgery Progress Note: Results - Labs Result Diagrams: 06/05/20 05:23 06/05/20 05:22 Lab results: Laboratory Results - last 24 hr 06/04/20 06/05/20 06/05/20 23:42 03:26 05:22 WBC RBC Hgb Hct MCV MCH MCHC RDW Plt Count MPV Neutrophils % Lymphocytes % Monocytes % Eosinophils % Basophils % Neutrophils # Lymphocytes # Monocytes # Eosinophils # Basophils # Sodium 137 Potassium 3.5 Chloride 107 Carbon Dioxide 22 Anion Gap 12 BUN 11 Creatinine 0.87 Estimated GFR (MDRD) 68 Glucose 132 H POC Glucose 156 H 123 H Calcium 7.5 L Fluid Creatinine 06/05/20 06/05/20 06/05/20 05:23 07:03 08:49 WBC 20.8 H RBC 2.69 L Hgb 8.0 L Hct 25.8 L MCV 95.9 MCH 29.8 MCHC 31.0 L RDW 17.6 H Plt Count 251 MPV 8.8 Neutrophils % 66.6 Lymphocytes % 21.9 Monocytes % 10.1 H Eosinophils % 1.3 Basophils % 0.0 Neutrophils # 13.9 H Lymphocytes # 4.6 H Monocytes # 2.1 H Eosinophils # 0.3 Basophils # 0.0 Sodium Potassium Chloride Carbon Dioxide Anion Gap BUN Creatinine Estimated GFR (MDRD) Glucose POC Glucose 136 H Calcium Fluid Creatinine 0.77 Hg down from 8.8 to 8.0 today Abdominal drainage 420 ml ileal conduit 620 ml WBC down from 26 Surgery Progress Note: A/P - Problem (1) S/P hernia repair Current Visit: Yes Code(s): Z98.890 - OTHER SPECIFIED POSTPROCEDURAL STATES; Z87.19 - PERSONAL HISTORY OF OTHER DISEASES OF THE DIGESTIVE SYSTEM Status: Acute (2) S/P ileal conduit Current Visit: Yes Code(s): Z93.6 - OTHER ARTIFICIAL OPENINGS OF URINARY TRACT STATUS Status: Acute (3) Status post PICC central line placement Current Visit: Yes Code(s): Z95.828 - PRESENCE OF OTHER VASCULAR IMPLANTS AND GRAFTS Status: Acute (4) Leukocytosis Current Visit: Yes Code(s): D72.829 - ELEVATED WHITE BLOOD CELL COUNT, UNSPECIFIED Status: Acute (5) Postoperative anemia Current Visit: Yes Code(s): D64.9 - ANEMIA, UNSPECIFIED Status: Acute - Plan Plan: Patient is doing a lot better. She continues to drain from her conduit and wounds are healing well. She is encouraged to walk around more. She should also continue diet of ice chips and small sips of water until her bowel function improves and then she can move to a clear liquid diet.
[2020-06-05] MEDS: Acetaminophen 500 MG TAB PO SCH ×3 (12:07→23:30)
--- NOTE | 2020-06-05 16:48 | PDOC.HOSPP ---
- Subjective Encounter Date: 06/05/20 Encounter Time: 07:00 Subjective: Patient continues to have abdominal pain, states it is an 8/10. She has some nausea or well. She does not believed she has passed gas yet. She is asking for a sprite. No cough or SOB - Objective Vital Signs & Weight: Vital Signs (12 hours) Temp Pulse Resp BP Pulse Ox 06/05/20 16:15 97.7 F 82 16 120/81 97 06/05/20 14:07 90 16 06/05/20 11:19 97.7 F 84 20 131/83 99 06/05/20 07:35 97.6 F 88 18 141/87 H 98 06/05/20 07:11 92 20 97 Weight Admit Weight 175 lb Weight 175 lb 7.807 oz Most Recent Monitor Data Heart Rate from ECG 108 NIBP 145/87 NIBP BP-Mean 106 Respiration from ECG 15 SpO2 93 I&O: 06/04/20 06/05/20 06/06/20 06:59 06:59 06:59 Intake Total 3501 Output Total 1580 1540 Balance 1921 -1540 Result Diagrams: 06/05/20 05:23 06/05/20 05:22 Additional Labs: Accuchecks 06/05/20 06/05/20 06/05/20 16:13 11:21 08:49 POC Glucose 111 H 106 136 H 06/05/20 06/04/20 06/04/20 03:26 23:42 19:39 POC Glucose 123 H 156 H 134 H Hospitalist ROS - Review of Systems Constitutional: denies: fever, chills - Medication Medications: Active Medications Generic Name Dose Route Start Last Admin Trade Name Freq PRN Reason Stop Dose Admin Acetaminophen 1,000 mg 06/05/20 12:00 06/05/20 12:07 Tylenol PO Not Given Q6HR DEMETRIO Albuterol/Ipratropium 3 ml 06/03/20 13:00 06/05/20 14:07 Duoneb EZPAP 3 ml [id number] DEMETRIO Administration Arformoterol Tartrate 15 mcg 06/03/20 18:30 06/05/20 07:12 Brovana NEB 15 mcg BID-RT DEMETRIO Administration Budesonide 0.5 mg 06/03/20 18:30 06/05/20 07:12 Pulmicort Neb Solution INH 0.5 mg BID-RT DEMETRIO Administration Enoxaparin Sodium 40 mg 06/05/20 09:00 06/05/20 09:56 Lovenox SC 40 mg 0900 DEMETRIO Administration Famotidine 20 mg 06/02/20 21:00 06/05/20 09:55 Pepcid SLOW IVP 20 mg Q12HR DEMETRIO Administration Hydralazine HCl 20 mg 06/02/20 15:41 06/03/20 00:39 Apresoline SLOW IVP 20 mg Q4H PRN Administration SBP greater than 160/100 Dextrose/Sodium Chloride 1,000 mls @ 125 mls/hr 06/02/20 16:45 06/05/20 15:38 D5 0.9% Ns IV 1,000 mls .Q8H DEMETRIO Administration Meropenem 2 gm/ Sodium 100 mls @ 200 mls/hr 06/04/20 10:00 06/05/20 10:01 Chloride IVPB 100 mls 0200,1000,1800 DEMETRIO Administration Bupivacaine HCl 10 ml/ Sodium 100 mls @ 12 mls/hr 06/04/20 10:30 06/05/20 12: 25 Chloride EPIDURAL 100 mls INF DEMETRIO Administration Ketorolac Tromethamine 30 mg 06/04/20 23:00 06/05/20 12:21 Toradol IVP 06/09/20 23:01 30 mg Q6H DEMETRIO Administration Ondansetron HCl 4 mg 06/02/20 19:48 06/03/20 08:35 Zofran IVP 4 mg Q6H PRN Administration Nausea/Vomiting Tramadol HCl 100 mg 06/02/20 19:48 06/05/20 09:54 Ultram PO 100 mg Q6H PRN Administration Moderate Pain 4-6 Zolpidem Tartrate 5 mg 06/02/20 19:49 06/02/20 20:33 Ambien PO 5 mg HSPRN PRN Administration Insomnia - Exam General Appearance: NAD, awake alert Eye: PERRL, anicteric sclera ENT: normocephalic atraumatic, no oropharyngeal lesions Neck: no JVD Heart: RRR, no murmur, no gallops, no rubs Respiratory: CTAB, no wheezes, no rales, no ronchi Gastrointestinal: soft Gastrointestinal - other findings: abdomen distended, + BS, tender, hypoactive bowel sounds. Drain in place Extremities: no cyanosis, no clubbing, no edema Skin: normal turgor, no lesions, no rashes Neurological: cranial nerve grossly intact, normal sensation to touch, no focal deficits, no new deficit Musculoskeletal: normal tone, normal strength, no muscle wasting Psychiatric: normal affect, normal behavior, A&O x 3 Hosp A/P - Plan This is a 54 year old female with PMH of bladder cancer admitted for radical cystectomy, bilateral pelvic LN dissection, hysterectomy, oopherectomy, and lysis of adhesions with small bowel anastamosis and incisional hernia repair Abdominal pain s/p radical cystectomy, bilateral pelvic LN dissection, hysterectomy, oopherectomy, and lysis of adhesions with small bowel anastamosis and incisional hernia repair Postoperative ileus - WBC is improving. Continue meropenem - abdominal Xray showing ileus - attempt to minimize narcotics. Continue NPO diet with sips and chips Anemia - Hb stable at 9, check folate/B12/TSH in am Hypertension - controlled - on IV fluids due to poor oral intake Sinus tachycardia - resolved
[2020-06-05] MEDS: Ondansetron PF 4 MG/2 ML Vial IVP PRN (17:45)
--- NOTE | 2020-06-05 17:51 | PRG ---
DATE OF SERVICE: 06/05/2020 SUBJECTIVE: Ms. Montelongo is doing well today. She is belching, but not passing gas. She denies nausea. OBJECTIVE: VITAL SIGNS: Temperature 97 degrees, heart rate 82, and blood pressure 120/81. Urine output is good. LUCI drain, serosanguineous very dilute. Ileal conduit, good output. LUNGS: Clear to auscultation. CARDIAC: Regular rate and rhythm. ABDOMEN: Soft. Occasional bowel sounds. Slightly distended, slightly tympanitic. EXTREMITIES: Unremarkable. PATHOLOGY: Pending. LABORATORY DATA: White count 20.8 and hemoglobin 8. Basic metabolic profile normal. ASSESSMENT AND PLAN: The patient is doing well. She has not had good bowel function. I would continue sips and chips, occasional sips of water, not advance her diet. Await better GI function. Job ID: [id number]
[2020-06-06] MEDS: Dextrose 5 % And 0.9 % NaCl 1,000 ML IV SCH (00:11)
[2020-06-06] MEDS: Meropenem 2 GM in Sodium Chloride 0.9% 100 ML IVPB SCH ×3 (02:22→17:54)
[2020-06-06 04:33] LABS: #Basophils 0.1 thou/uL (0.0-0.2); #Eosinphils 0.9 thou/uL (0.0-0.7); #Lymphocytes 4.5 thou/uL (1.20-3.40); #Monocytes 1.2 thou/uL (0.11-0.59); %Basophils 0.4 % (0.0-1.0); %Lymphocytes 30.7 % (21.0-51.0); %Neutrophils 54.9 % (42.0-75.0); Hemoglobin 7.1 g/dL (12.0-16.0); Mean Corpuscular Hemoglobin 30.7 pg (27.0-31.0); Mean Platelet Volume 8.3 fL (7.4-10.4); Platelet Count 284 thou/uL (130-400); RBC Distribution Width 17.1 % (11.5-14.5); Red Blood Cell (RBC) Count 2.32 mill/uL (4.20-5.40); White Blood Cell (WBC) Count 14.6 thou/uL (4.8-10.8)
[2020-06-06 04:55] LABS: Anion Gap 7 mmol/L (10-20); BUN (Urea Nitrogen) 9 mg/dL (9.8-20.1); Calc. Creatinine Clearance 122 mL/min (70-130); Calcium 7.4 mg/dL (7.8-10.44); Carbon Dioxide 25 mmol/L (22-29); Chloride 110 mmol/L (98-107); Estimated GFR-MDRD Greater than 90; Glucose 90 mg/dL (70-105); Potassium 3.1 mmol/L (3.5-5.1); Sodium 139 mmol/L (136-145)
[2020-06-06] MEDS: Bupivacaine 10 ML in Sodium Chloride 0.9% 90 ML EPIDURAL SCH ×3 (05:00→23:08)
[2020-06-06] MEDS: Acetaminophen 500 MG TAB PO SCH ×4 (05:06→23:08)
[2020-06-06] MEDS: Ketorolac Tromethamine 30 MG/ML VIAL IVP SCH ×4 (05:06→23:09)
[2020-06-06 05:13] LABS: Thyroid Stimulating Hormone 3.9534 uIU/mL (0.35-4.94)
[2020-06-06] MEDS ORDERED: Potassium Chloride 20 MEQ TAB PO SCH (07:15)
[2020-06-06] MEDS ORDERED: Magnesium Sulfate 4 GM in Sodium Chloride 0.9% 250 ML 250 ML IVPB SCH (07:15)
[2020-06-06] MEDS ORDERED: Furosemide 20 MG/2 ML VIAL SLOW IVP SCH (07:15)
--- NOTE | 2020-06-06 07:25 | PRG ---
DATE OF SERVICE: 06/06/2020 SUBJECTIVE: Pain is adequately controlled with epidural, Toradol. Denies nausea. States that she has passed multiple bouts of flatus last night. Denies fever, chills. OBJECTIVE: VITAL SIGNS: Stable at 97, 17, 126/80, 81. I's and O's; as she had significant leakage at the stoma site, all from the conduit is not accurate and suboptimal. LUCI output 440 over the last 12 hours. GENERAL: The patient is in no acute distress. HEENT: Grossly unremarkable. HEART: Regular rate. LUNGS: Clear. ABDOMEN: Distended; however, she has return of her bowel function with active bowel sounds. There is no rigidity. No rebound. Conduit demonstrates pink stoma with concentrated yellow urine. Incision is intact, minimal drainage from the incision. LUCI is in place. : No active drainage from her vagina. EXTREMITIES: No cyanosis, clubbing, or edema. No calf tenderness appreciated. PERTINENT LABORATORY DATA: White count is decreased to 14.6, hemoglobin 7.1, platelet 281. Chemistry profile; potassium 3.1, creatinine is 0.68. LUCI creatinine yesterday due to increased output demonstrating findings consistent with peritoneal fluid. IMPRESSION AND PLAN: Ms. Montelongo is a 54-year-old female, postoperative day number four, status post radical cystectomy, ileal conduit, bilateral pelvic lymph node dissection, lysis of adhesion, pelvic exoneration, incisional hernia repair. She has passed multiple flatus. Her abdomen remains distended/tympanic; nontender. Ileus improving as she has passed flatus. All narcotics have been discontinued. She is on bupivacaine epidural, Toradol, and Lovenox for DVT prophylaxis. PT walking program and has been ambulating aggressively. I encouraged the patient to continue ambulation. Decrease in H&H, however I do not think that this is acute blood loss, as her LUCI drain is mostly serous, urine output clear 1 unit of packed RBCs has been provided by hospitalist.. No further transfusion is necessary. She has been noncompliant with recommendations of n.p.o. except meds and sips of water, as she is passing flatus, will officially advance her to clear liquids only. Will be conservative and advancing her diet as she remains distended and tympanic importance of staying off all narcotics, and continue regional epidural, Toradol for pain management. Although she requested pain medication, I observed her with long conversation and she is not in pain and appears to be comfortable. Continue clear liquids over the weekend, aggressive ambulation. Continue to hold all narcotics. Patient informed Job ID: [id number] MTDD
[2020-06-06] MEDS: Famotidine/PF 20 mg/2ml Vial SLOW IVP SCH ×2 (08:37→20:08)
[2020-06-06] MEDS: Enoxaparin Sodium 40 MG/0.4 ML SYRINGE SC SCH (08:38)
[2020-06-06] MEDS: D5 0.9% NS w/ 20 mEq KCl 1,000 ML IV SCH ×2 (08:39→17:56)
[2020-06-06] MEDS: Budesonide 0.5 MG/2 ML NEB INH SCH ×2 (09:50→18:15)
[2020-06-06] MEDS: Arformoterol 15 MCG/2 ML NEB NEB SCH ×2 (09:50→18:15)
--- NOTE | 2020-06-06 11:29 | PDOC.GSPN ---
Surgery Progress Note: Subj - Subjective Patient reports: positive flatus (multiple last night), still having pain (Pt. rates pain as 5/10.) Narrative: Pt. is day 4 s/p radical cystectomy with ileal conduit. She continues having pain but is improving. Surgery Progress Note: Obj - Vital signs Vital signs: Vital Signs - Most Recent Temp Pulse Resp BP Pulse Ox 97.8 F 77 16 133/84 97 06/06/20 08:18 06/06/20 08:18 06/06/20 08:18 06/06/20 08:18 06/06/20 08:18 - Physical Exam Cardiovascular: regular rate and rhythm Respiratory: wheezing Abdomen: decreased bowel sounds, appropriately tender Wound: dressing clean,dry,intact, healing well Surgery Progress Note: Results - Labs Result Diagrams: 06/06/20 04:10 06/06/20 04:10 Lab results: Laboratory Results - last 24 hr 06/02/20 06/05/20 06/06/20 06:28 23:37 03:38 WBC RBC Hgb Hct MCV MCH MCHC RDW Plt Count MPV Neutrophils % Lymphocytes % Monocytes % Eosinophils % Basophils % Neutrophils # Lymphocytes # Monocytes # Eosinophils # Basophils # Sodium Potassium Chloride Carbon Dioxide Anion Gap BUN Creatinine Estimated GFR (MDRD) Glucose POC Glucose 119 H 105 Calcium Magnesium Vitamin B12 Folate TSH 3rd Generation Blood Type Antibody Screen Crossmatch See Detail 06/06/20 06/06/20 06/06/20 04:10 04:10 04:10 WBC 14.6 H RBC 2.32 L Hgb 7.1 L Hct 22.3 L MCV 96.0 MCH 30.7 MCHC 32.0 RDW 17.1 H Plt Count 284 MPV 8.3 Neutrophils % 54.9 Lymphocytes % 30.7 Monocytes % 8.0 Eosinophils % 6.0 Basophils % 0.4 Neutrophils # 8.0 H Lymphocytes # 4.5 H Monocytes # 1.2 H Eosinophils # 0.9 H Basophils # 0.1 Sodium 139 Potassium 3.1 L Chloride 110 H Carbon Dioxide 25 Anion Gap 7 L BUN 9 L Creatinine 0.68 Estimated GFR (MDRD) Greater than 90 Glucose 90 POC Glucose Calcium 7.4 L Magnesium Vitamin B12 Folate 5.50 L TSH 3rd Generation Blood Type Antibody Screen Crossmatch 06/06/20 06/06/20 06/06/20 04:10 04:15 04:51 WBC RBC Hgb Hct MCV MCH MCHC RDW Plt Count MPV Neutrophils % Lymphocytes % Monocytes % Eosinophils % Basophils % Neutrophils # Lymphocytes # Monocytes # Eosinophils # Basophils # Sodium Potassium Chloride Carbon Dioxide Anion Gap BUN Creatinine Estimated GFR (MDRD) Glucose POC Glucose Calcium Magnesium 1.2 L Vitamin B12 420 Folate TSH 3rd Generation 3.9534 Blood Type O POSITIVE Antibody Screen NEGATIVE Crossmatch See Detail 06/06/20 07:57 WBC RBC Hgb Hct MCV MCH MCHC RDW Plt Count MPV Neutrophils % Lymphocytes % Monocytes % Eosinophils % Basophils % Neutrophils # Lymphocytes # Monocytes # Eosinophils # Basophils # Sodium Potassium Chloride Carbon Dioxide Anion Gap BUN Creatinine Estimated GFR (MDRD) Glucose POC Glucose 96 Calcium Magnesium Vitamin B12 Folate TSH 3rd Generation Blood Type Antibody Screen Crossmatch Hgb is down from 8.0 yesterday to 7.1 right now. WBC continue downard trend from 20. LUCI drainage 825 ml urine output 430 ml Surgery Progress Note: A/P - Problem (1) S/P hernia repair Current Visit: Yes Code(s): Z98.890 - OTHER SPECIFIED POSTPROCEDURAL STATES; Z87.19 - PERSONAL HISTORY OF OTHER DISEASES OF THE DIGESTIVE SYSTEM Status: Acute (2) S/P ileal conduit Current Visit: Yes Code(s): Z93.6 - OTHER ARTIFICIAL OPENINGS OF URINARY TRACT STATUS Status: Acute (3) Status post PICC central line placement Current Visit: Yes Code(s): Z95.828 - PRESENCE OF OTHER VASCULAR IMPLANTS AND GRAFTS Status: Acute (4) Leukocytosis Current Visit: Yes Code(s): D72.829 - ELEVATED WHITE BLOOD CELL COUNT, UNSPECIFIED Status: Acute (5) Postoperative anemia Current Visit: Yes Code(s): D64.9 - ANEMIA, UNSPECIFIED Status: Acute - Plan Plan: Patient is post-op day 4 radical cystectomy with ileal conduit. She is still in some pain and will continue to be managed. Wounds are healing appropriately. She is encoraged to continue movement and activity. She has passed flatus so bowel function appears to be improving. She may be able to transition to a clear liquid diet tomorrow. Her Hgb continued to trend down, so she received blood. Hgb should continue to be trended.
--- NOTE | 2020-06-06 11:42 | RAD ---
RADIOGRAPH CHEST ONE VIEW RADIOGRAPH ABDOMEN 2 VIEWS: DATE: 06/06/2020 HISTORY: 54-year-old female with abdominal distention COMPARISON: 06/05/2020 FINDINGS: Again noted are the bilateral ureteral stents traversing through right lower quadrant, probably ileal conduit, and exiting via right lower quadrant ostomy. Midline skin yeimi. Bilateral pelvic multiple surgical clips. There continues to be numerous dilated small bowel loops with air-fluid levels throughout the abdomen . There is gas throughout much of the colon. No pneumoperitoneum. Moderate gas and fluid in the stomach. Elevated left hemidiaphragm. No major interval change in the abdomen. Densities at lung bases probably represent subsegmental atelectasis. Cannot rule out bilateral small pleural effusions. No cardiomegaly or pulmonary edema. Upper lung zones are clear. Left subclavian central venous catheter at SVC no pneumothorax.. Right medial implantable vascular access port. IMPRESSION: Abnormal bowel gas pattern. In the immediately postoperative period, a postoperative ileus is favored over partial small bowel obstruction. No major interval change since yesterday.
[2020-06-06] MEDS ORDERED: Folic Acid 0.4 MG in Syringe 0 ML SC SCH (12:00)
[2020-06-06 12:22] LABS: Hemoglobin 9.7 g/dL (12.0-16.0)
[2020-06-06 15:02] VITALS: BMI 25.2
--- NOTE | 2020-06-06 15:39 | PDOC.HOSPP ---
- Subjective Encounter Date: 06/06/20 Encounter Time: 07:00 Subjective: The patent reports improvement in her abdominal pain to a 5/10. She seems more alert today. She is trying to avoid narcotics She is passing gas today. She is very anxious to drink some sprite and extremely thirsty - Objective Vital Signs & Weight: Vital Signs (12 hours) Temp Pulse Pulse Resp BP BP Pulse Ox 06/06/20 14:32 82 16 06/06/20 12:18 98 F 79 14 142/80 H 97 06/06/20 09:50 77 16 06/06/20 09:40 97.6 F 77 16 167/83 H 06/06/20 08:18 97.8 F 77 16 133/84 97 06/06/20 06:42 97.9 F 81 17 126/80 Weight Admit Weight 175 lb Weight 175 lb 7.807 oz Most Recent Monitor Data Heart Rate from ECG 108 NIBP 145/87 NIBP BP-Mean 106 Respiration from ECG 15 SpO2 93 I&O: 06/05/20 06/06/20 06/07/20 06:59 06:59 06:59 Intake Total 3935 350 Output Total 1540 1255 Balance -1540 2680 350 Result Diagrams: 06/06/20 12:14 06/06/20 04:10 Additional Labs: Accuchecks 06/06/20 06/06/20 06/06/20 12:00 07:57 03:38 POC Glucose 102 96 105 06/05/20 06/05/20 06/05/20 23:37 20:45 16:13 POC Glucose 119 H 105 111 H Hospitalist ROS - Review of Systems Constitutional: denies: fever, chills - Medication Medications: Active Medications Generic Name Dose Route Start Last Admin Trade Name Freq PRN Reason Stop Dose Admin Acetaminophen 1,000 mg 06/05/20 12:00 06/06/20 12:03 Tylenol PO 1,000 mg Q6HR DEMETRIO Administration Albuterol/Ipratropium 3 ml 06/03/20 13:00 06/06/20 14:32 Duoneb EZPAP 3 ml [id number] DEMETRIO Administration Arformoterol Tartrate 15 mcg 06/03/20 18:30 06/06/20 09:50 Brovana NEB 15 mcg BID-RT DEMETRIO Administration Budesonide 0.5 mg 06/03/20 18:30 06/06/20 09:50 Pulmicort Neb Solution INH 0.5 mg BID-RT DEMETRIO Administration Famotidine 20 mg 06/02/20 21:00 06/06/20 08:37 Pepcid SLOW IVP 20 mg Q12HR DEMETRIO Administration Hydralazine HCl 20 mg 06/02/20 15:41 06/03/20 00:39 Apresoline SLOW IVP 20 mg Q4H PRN Administration SBP greater than 160/100 Meropenem 2 gm/ Sodium 100 mls @ 200 mls/hr 06/04/20 10:00 06/06/20 10:15 Chloride IVPB 100 mls 0200,1000,1800 DEMETRIO Administration Bupivacaine HCl 10 ml/ Sodium 100 mls @ 12 mls/hr 06/04/20 10:30 06/06/20 14: 39 Chloride EPIDURAL 100 mls INF DEMETRIO Administration Potassium Chloride/Dextrose/Sod Cl 1,000 mls @ 125 mls/hr 06/06/20 06:15 08:39 D5 0.9% Ns W/ 20 Meq Kcl IV 1,000 mls .Q8H DEMETRIO Administration Ketorolac Tromethamine 30 mg 06/04/20 23:00 06/06/20 10:15 Toradol IVP 06/09/20 23:01 30 mg Q6H DEMETRIO Administration Ondansetron HCl 4 mg 06/02/20 19:48 06/05/20 17:45 Zofran IVP 4 mg Q6H PRN Administration Nausea/Vomiting Zolpidem Tartrate 5 mg 06/02/20 19:49 06/02/20 20:33 Ambien PO 5 mg HSPRN PRN Administration Insomnia - Exam General Appearance: NAD, awake alert Eye: PERRL, anicteric sclera ENT: normocephalic atraumatic, no oropharyngeal lesions Neck: no JVD Heart: RRR, no murmur, no gallops, no rubs Respiratory: CTAB, no wheezes, no rales, no ronchi Gastrointestinal - other findings: abdomen firm, distended. Hypoactive bowel sounds Extremities: no cyanosis, no clubbing, no edema Skin: normal turgor, no lesions, no rashes Hosp A/P - Plan This is a 54 year old female with PMH of bladder cancer admitted for radical cystectomy, bilateral pelvic LN dissection, hysterectomy, oopherectomy, and lysis of adhesions with small bowel anastamosis and incisional hernia repair #Abdominal pain s/p radical cystectomy, bilateral pelvic LN dissection, hysterectomy, oopherectomy, and lysis of adhesions with small bowel anastamosis and incisional hernia repair #Postoperative ileus - WBC is improving to 14. Continue meropenem - abdominal Xray showing ileus 06/05. Patient is passing gas. Continue NPO diet per general surgery - clear liquids possibly tomorrow Hypomagnesemia - Mg 1.2, given 4 grams of magnesium, will recheck Folate deficiency Anemia - Hb stable at 9, folate low, started folic acid 1 mg SC daily Hypertension - controlled - on IV fluids due to poor oral intake Sinus tachycardia - resolved
[2020-06-06] MEDS ORDERED: Fentanyl 100 MCG/2 ML VIAL SLOW IVP PRN (17:00)
--- NOTE | 2020-06-06 18:14 | PRG ---
DATE OF SERVICE: 06/06/2020 SUBJECTIVE: She is doing well today. She reports passing flatus. Her belching and burping has resolved. She is feeling better. She states her abdomen is perhaps slightly distended. OBJECTIVE: VITAL SIGNS: Temperature 97.8 degrees, 79, 147/71. Urine output is excellent. Her hemoglobin is 7.1 this morning, 14.6 white count. Basic metabolic profile is normal. Pathology reveals all margins negative for bladder cancer with benign lymph nodes. The patient is 4 days status post pelvic exenteration for cystectomy, hysterectomy, lysis of adhesions, incisional hernia repair. LUNGS: Clear to auscultation. CARDIAC: Regular rate and rhythm. No murmur or gallop. ABDOMEN: Slightly distended, tympanitic. Bowel sounds present. EXTREMITIES: Unremarkable. ASSESSMENT AND PLAN: Status post incisional hernia repair, resolving ileus. The patient can start clear liquids. Would go very slow on her diet, avoid carbonated beverages. I have explained this to the patient. I would encourage her to continue to be active ambulating. At this point Dr. Garcia is covering and will see her over the weekend. I will see her next week. Job ID: [id number]
[2020-06-06] MEDS: Lorazepam 2 MG/ML VIAL SLOW IVP PRN (21:40)
[2020-06-06] MEDS: hydrALAZINE 20 MG/ML VIAL SLOW IVP PRN (21:45)
[2020-06-07] MEDS: D5 0.9% NS w/ 20 mEq KCl 1,000 ML IV SCH ×4 (00:56→22:44)
[2020-06-07] MEDS: Meropenem 2 GM in Sodium Chloride 0.9% 100 ML IVPB SCH ×3 (02:12→17:18)
[2020-06-07] MEDS: Ketorolac Tromethamine 30 MG/ML VIAL IVP SCH ×3 (06:07→17:19)
[2020-06-07] MEDS: Acetaminophen 500 MG TAB PO SCH ×3 (06:07→17:19)
[2020-06-07] MEDS: Bupivacaine 10 ML in Sodium Chloride 0.9% 90 ML EPIDURAL SCH (07:28)
[2020-06-07 07:51] LABS: #Eosinphils 0.4 thou/uL (0.0-0.7); #Lymphocytes 2.8 thou/uL (1.20-3.40); #Neutrophils 8.4 thou/uL (1.40-6.50); %Basophils 0.2 % (0.0-1.0); %Eosinophils 2.8 % (0.0-10.0); %Neutrophils 66.9 % (42.0-75.0); Hemoglobin 10.2 g/dL (12.0-16.0); Mean Corpuscular HGB CONC 34.1 g/dL (32.0-36.0); Mean Corpuscular Hemoglobin 30.9 pg (27.0-31.0); Mean Corpuscular Volume 90.6 fL (78.0-98.0); Mean Platelet Volume 7.8 fL (7.4-10.4); Platelet Count 316 thou/uL (130-400); RBC Distribution Width 16.6 % (11.5-14.5); White Blood Cell (WBC) Count 12.5 thou/uL (4.8-10.8)
[2020-06-07 08:11] LABS: Anion Gap 7 mmol/L (10-20); BUN (Urea Nitrogen) 6 mg/dL (9.8-20.1); Calc. Creatinine Clearance 133 mL/min (70-130); Carbon Dioxide 29 mmol/L (22-29); Chloride 103 mmol/L (98-107); Estimated GFR-MDRD Greater than 90; Glucose 126 mg/dL (70-105); Magnesium 1.6 mg/dL (1.6-2.6); Potassium 3.2 mmol/L (3.5-5.1); Sodium 136 mmol/L (136-145)
[2020-06-07] MEDS: Arformoterol 15 MCG/2 ML NEB NEB SCH ×2 (08:25→18:16)
[2020-06-07] MEDS: Budesonide 0.5 MG/2 ML NEB INH SCH ×2 (08:26→18:17)
[2020-06-07] MEDS ORDERED: Potassium Chloride 20 MEQ TAB PO SCH (08:30)
[2020-06-07] MEDS: Ondansetron PF 4 MG/2 ML Vial IVP PRN (09:10)
[2020-06-07] MEDS: Lorazepam 2 MG/ML VIAL SLOW IVP PRN ×2 (09:10→17:28)
[2020-06-07] MEDS: Famotidine/PF 20 mg/2ml Vial SLOW IVP SCH ×2 (09:45→20:13)
[2020-06-07] MEDS: Folic Acid 0.4 MG in Syringe 0 ML SC SCH (09:45)
--- NOTE | 2020-06-07 10:49 | PRG ---
DATE OF SERVICE: 06/07/2020 SUBJECTIVE: The patient has been vomiting overnight, although this morning she is no longer nauseated or vomiting. She has no appetite, however. She denies significant pain, chest pains, difficulty breathing, headaches, fevers, or chills. OBJECTIVE: VITAL SIGNS: Afebrile, she remains somewhat hypertensive, otherwise vitals stable. Excellent urine output over 3 L. LUCI put out over 1100, creatinine has been checked recently consistent with serum. GENERAL: No acute distress. LUNGS: Unlabored breathing. HEART: Regular rate and rhythm. ABDOMEN: Soft, minimal distention, appropriately tender along midline incision. Stoma appears healthy with stents in place draining clear urine. EXTREMITIES: No peripheral edema. SKIN: Warm and dry. LABORATORY DATA: White count 12.5, hemoglobin 10.2, potassium 3.2. Creatinine 0.6, magnesium 1.6. ASSESSMENT AND PLAN: 1. Postoperative day 5 radical cystectomy, hysterectomy, ileal conduit. 2. Routine postoperative care, deep venous thrombosis and gastrointestinal prophylaxis, she needs an incentive spirometer at bedside, continue pain control, although this is not an issue currently. 3. Postoperative ileus. Continued to support electrolytes, n.p.o. for now, if her bowel function is returning by tomorrow, we will restart liquids. Pre-albumin has been ordered for tomorrow as we may need to consider total parenteral nutrition through her central line on Tuesday if she is not resolving. 4. Hypertension. Appreciate the assistance of the hospitalist service. 5. Hypokalemia, increasing potassium replacement to 40 mEq. Job ID: [id number]
[2020-06-07] MEDS: D5 NS w/ 40 mEq KCl 1,000 ML IV SCH ×2 (11:52→22:33)
[2020-06-07] MEDS ORDERED: Enoxaparin Sodium 40 MG/0.4 ML SYRINGE SC SCH (16:00)
--- NOTE | 2020-06-07 19:13 | PDOC.HOSPP ---
- Subjective Encounter Date: 06/07/20 Encounter Time: 11:00 Subjective: The patient stated she has 5/10 abdominal pain currently. States she tried clear liquid but threw everything up and is back to being NPO. She has no cough , chest pain or SOB - Objective Vital Signs & Weight: Vital Signs (12 hours) Temp Pulse Resp BP Pulse Ox 06/07/20 15:42 98.3 F 79 14 163/97 H 98 06/07/20 13:10 82 20 98 06/07/20 11:39 98.4 F 78 16 158/92 H 98 06/07/20 08:26 81 18 98 06/07/20 07:44 98.3 F 75 14 171/96 H 99 Weight Admit Weight 175 lb Weight 175 lb 7.807 oz Most Recent Monitor Data Heart Rate from ECG 108 NIBP 145/87 NIBP BP-Mean 106 Respiration from ECG 15 SpO2 93 I&O: 06/06/20 06/07/20 06/08/20 06:59 06:59 06:59 Intake Total 3935 2630 1575 Output Total 1255 4355 1285 Balance 2680 -1725 290 Result Diagrams: 06/07/20 05:24 06/07/20 05:24 Additional Labs: Accuchecks 06/07/20 06/07/20 06/06/20 11:46 04:15 21:05 POC Glucose 102 104 108 Hospitalist ROS - Review of Systems Constitutional: denies: fever, chills - Medication Medications: Active Medications Generic Name Dose Route Start Last Admin Trade Name Miguelangelq PRN Reason Stop Dose Admin Acetaminophen 1,000 mg 06/05/20 12:00 06/07/20 17:19 Tylenol PO 1,000 mg Q6HR DEMETRIO Administration Albuterol/Ipratropium 3 ml 06/03/20 13:00 06/07/20 18:17 Duoneb EZPAP Not Given [id number] DEMETRIO Arformoterol Tartrate 15 mcg 06/03/20 18:30 06/07/20 18:16 Brovana NEB Not Given BID-RT EDMETRIO Budesonide 0.5 mg 06/03/20 18:30 06/07/20 18:17 Pulmicort Neb Solution INH Not Given BID-RT DEMETRIO Famotidine 20 mg 06/02/20 21:00 06/07/20 09:45 Pepcid SLOW IVP 20 mg Q12HR DEMETRIO Administration Hydralazine HCl 20 mg 06/02/20 15:41 06/06/20 21:45 Apresoline SLOW IVP 20 mg Q4H PRN Administration SBP greater than 160/100 Meropenem 2 gm/ Sodium 100 mls @ 200 mls/hr 06/04/20 10:00 06/07/20 17:18 Chloride IVPB 100 mls 0200,1000,1800 DEMETRIO Administration Potassium Chloride/Dextrose/Sod Cl 1,000 mls @ 125 mls/hr 06/06/20 06:15 14:28 D5 0.9% Ns W/ 20 Meq Kcl IV Not Given .Q8H DEMETRIO Folic Acid 0.4 mg/ Syringe 0.08 mls @ 4.8 mls/hr 06/07/20 09:00 06/07/20 09: 45 SC 0.08 mls DAILY DEMETRIO Administration Potassium Chloride/Dextrose/Sod Cl 1,000 mls @ 125 mls/hr 06/07/20 10:30 11:52 D5 Ns W/ 40 Meq Kcl IV 1,000 mls .Q8H DEMETRIO Administration Ketorolac Tromethamine 30 mg 06/04/20 23:00 06/07/20 17:19 Toradol IVP 06/09/20 23:01 30 mg Q6H DEMETRIO Administration Lorazepam 1 mg 06/03/20 17:37 06/07/20 17:28 Ativan SLOW IVP 1 mg Q6H PRN Administration Anxiety/Agitation Ondansetron HCl 4 mg 06/02/20 19:48 06/07/20 09:10 Zofran IVP 4 mg Q6H PRN Administration Nausea/Vomiting Zolpidem Tartrate 5 mg 06/02/20 19:49 06/02/20 20:33 Ambien PO 5 mg HSPRN PRN Administration Insomnia - Exam General Appearance: NAD, awake alert Eye: PERRL, anicteric sclera ENT: normocephalic atraumatic, no oropharyngeal lesions Neck: no JVD Heart: RRR, no murmur, no gallops, no rubs Respiratory: CTAB, no wheezes, no rales, no ronchi Gastrointestinal: soft, non-distended Gastrointestinal - other findings: tender to palpation in LUQ and LLQ, good bowel sounds heard Extremities: no cyanosis, no clubbing, no edema Skin: normal turgor, no lesions, no rashes Neurological: cranial nerve grossly intact, normal sensation to touch Musculoskeletal: normal tone, normal strength, no muscle wasting Hosp A/P - Plan This is a 54 year old female with PMH of bladder cancer admitted for radical cystectomy, bilateral pelvic LN dissection, hysterectomy, oopherectomy, and lysis of adhesions with small bowel anastamosis and incisional hernia repair #Abdominal pain s/p radical cystectomy, bilateral pelvic LN dissection, hysterectomy, oopherectomy, and lysis of adhesions with small bowel anastamosis and incisional hernia repair #Postoperative ileus - WBC is improving to 12.5. Continue meropenem - abdominal Xray showing ileus 06/05. Patient is passing gas, advanced to clear liquids but failed. . Continue NPO diet per surgery - clear liquids possibly tomorrow Hypomagnesemia - Mg 1.2, s/p 4 grams of magnesium with improvement to 2.1 Hypokalemia - potassium 3.2, likely from vomiting - replaced with oral potassium Folate deficiency Anemia - Hb stable at 10, folate low, started folic acid 1 mg SC daily Hypertension - controlled - on IV fluids due to poor oral intake - will add amlodipine 2.5 mg daily Sinus tachycardia - resolved
[2020-06-07] MEDS ORDERED: Amlodipine 5 MG TAB PO SCH (19:15)
--- NOTE | 2020-06-07 20:11 | PDOC.BPN ---
- Brief Progress Note Doing well s/p radical cystectomy with hernia repair and lysis of adhesions. Reports that she "feels sick", but is unable to provide any details. Postoperative pain well controlled with current regimen. Seems to be struggling with liquid diet due to an episode of nausea and vomiting. Demonstrates flatus and having bowel movements. Ambulating independently. EXAM: VSS General: Alert and oriented, no acute distress, resting comfortably Pulmonary: No dyspnea or difficulty breathing Abdomen: Soft, non-distended, incisions clean, urostomy pink and functioning CV: Regular rate and rhythm, palpable distal pulses Extremities: No edema LABORATORY / IMAGING: Laboratory analysis reviewed and demonstrates improving leukocytosis of 12.5 with 67% neutrophils. Hemoglobin increased from 9.7-10.2 PLAN: 54-year-old female s/p radical cystectomy with incisional hernia repair lysis of adhesions, now with mild ileus. N.p.o. per urology We will continue to monitor
[2020-06-08] MEDS: Ketorolac Tromethamine 30 MG/ML VIAL IVP SCH ×5 (00:18→23:57)
[2020-06-08] MEDS: Acetaminophen 500 MG TAB PO SCH ×5 (00:18→23:57)
[2020-06-08] MEDS: Lorazepam 2 MG/ML VIAL SLOW IVP PRN ×4 (00:27→21:17)
[2020-06-08] MEDS: Meropenem 2 GM in Sodium Chloride 0.9% 100 ML IVPB SCH ×3 (03:23→17:37)
[2020-06-08] MEDS: D5 NS w/ 40 mEq KCl 1,000 ML IV SCH ×4 (06:08→23:58)
[2020-06-08 06:39] LABS: #Basophils 0.1 thou/uL (0.0-0.2); #Eosinphils 0.6 thou/uL (0.0-0.7); #Lymphocytes 5.5 thou/uL (1.20-3.40); #Monocytes 1.5 thou/uL (0.11-0.59); #Neutrophils 6.5 thou/uL (1.40-6.50); %Basophils 0.4 % (0.0-1.0); %Eosinophils 4.4 % (0.0-10.0); %Lymphocytes 38.8 % (21.0-51.0); %Monocytes 10.7 % (0.0-10.0); %Neutrophils 45.8 % (42.0-75.0); Hemoglobin 10.7 g/dL (12.0-16.0); Mean Corpuscular Hemoglobin 30.2 pg (27.0-31.0); Mean Corpuscular Volume 91.3 fL (78.0-98.0); Mean Platelet Volume 7.9 fL (7.4-10.4); Platelet Count 347 thou/uL (130-400); RBC Distribution Width 16.6 % (11.5-14.5); Red Blood Cell (RBC) Count 3.54 mill/uL (4.20-5.40); White Blood Cell (WBC) Count 14.2 thou/uL (4.8-10.8)
[2020-06-08] MEDS: Arformoterol 15 MCG/2 ML NEB NEB SCH ×2 (06:55→19:34)
[2020-06-08] MEDS: Budesonide 0.5 MG/2 ML NEB INH SCH ×2 (06:56→19:34)
[2020-06-08 07:02] LABS: Anion Gap 10 mmol/L (10-20); BUN (Urea Nitrogen) 5 mg/dL (9.8-20.1); Calc. Creatinine Clearance 129 mL/min (70-130); Carbon Dioxide 25 mmol/L (22-29); Chloride 105 mmol/L (98-107); Estimated GFR-MDRD Greater than 90; Glucose 90 mg/dL (70-105); Magnesium 1.2 mg/dL (1.6-2.6); Potassium 3.9 mmol/L (3.5-5.1); Sodium 136 mmol/L (136-145)
[2020-06-08] MEDS: D5 0.9% NS w/ 20 mEq KCl 1,000 ML IV SCH ×3 (07:21→22:52)
[2020-06-08] MEDS: Famotidine/PF 20 mg/2ml Vial SLOW IVP SCH ×2 (08:56→21:17)
[2020-06-08] MEDS: Enoxaparin Sodium 40 MG/0.4 ML SYRINGE SC SCH (08:56)
[2020-06-08] MEDS: Folic Acid 0.4 MG in Syringe 0 ML SC SCH (08:56)
[2020-06-08] MEDS: Amlodipine 5 MG TAB PO SCH (08:57)
[2020-06-08] MEDS ORDERED: Magnesium Sulfate 3 GM in Sodium Chloride 0.9% 100 ML IVPB SCH (11:00)
--- NOTE | 2020-06-08 11:05 | PDOC.HOSPP ---
- Subjective Encounter Date: 06/08/20 Encounter Time: 10:59 Subjective: had some gas/BM pr. no nausea/vomiting - Objective Vital Signs & Weight: Vital Signs (12 hours) Temp Pulse Resp BP Pulse Ox 06/08/20 08:55 98.1 F 78 16 148/88 H 99 06/08/20 06:55 76 20 100 06/08/20 03:38 97.9 F 73 14 146/90 H 97 06/07/20 23:56 97.5 F L 80 16 159/93 H 99 Weight Admit Weight 175 lb Weight 175 lb 7.807 oz Most Recent Monitor Data Heart Rate from ECG 108 NIBP 145/87 NIBP BP-Mean 106 Respiration from ECG 15 SpO2 93 I&O: 06/07/20 06/08/20 06/09/20 06:59 06:59 06:59 Intake Total 2630 1575 Output Total 3648 7175 Balance -6544 -693 Result Diagrams: 06/08/20 06:05 06/08/20 06:05 Additional Labs: Accuchecks 06/08/20 06/07/20 06/07/20 03:47 20:14 11:46 POC Glucose 105 92 102 Hospitalist ROS - Medication Medications: Active Medications Generic Name Dose Route Start Last Admin Trade Name Freq PRN Reason Stop Dose Admin Acetaminophen 1,000 mg 06/05/20 12:00 06/08/20 06:05 Tylenol PO 1,000 mg Q6HR DEMETRIO Administration Albuterol/Ipratropium 3 ml 06/03/20 13:00 06/08/20 06:56 Duoneb EZPAP 3 ml [id number] DEMETRIO Administration Amlodipine Besylate 2.5 mg 06/08/20 09:00 06/08/20 08:57 Norvasc PO 2.5 mg DAILY DEMETRIO Administration Arformoterol Tartrate 15 mcg 06/03/20 18:30 06/08/20 06:55 Brovana NEB 15 mcg BID-RT DEMETRIO Administration Budesonide 0.5 mg 06/03/20 18:30 06/08/20 06:56 Pulmicort Neb Solution INH 0.5 mg BID-RT DEMETRIO Administration Enoxaparin Sodium 40 mg 06/08/20 09:00 06/08/20 08:56 Lovenox SC 40 mg 0900 DEMETRIO Administration Famotidine 20 mg 06/02/20 21:00 06/08/20 08:56 Pepcid SLOW IVP 20 mg Q12HR DEMETRIO Administration Hydralazine HCl 20 mg 06/02/20 15:41 06/06/20 21:45 Apresoline SLOW IVP 20 mg Q4H PRN Administration SBP greater than 160/100 Meropenem 2 gm/ Sodium 100 mls @ 200 mls/hr 06/04/20 10:00 06/08/20 09:04 Chloride IVPB 100 mls 0200,1000,1800 DEMETRIO Administration Potassium Chloride/Dextrose/Sod Cl 1,000 mls @ 125 mls/hr 06/06/20 06:15 07:21 D5 0.9% Ns W/ 20 Meq Kcl IV Not Given .Q8H DEMETRIO Folic Acid 0.4 mg/ Syringe 0.08 mls @ 4.8 mls/hr 06/07/20 09:00 06/08/20 08: 56 SC 0.08 mls DAILY DEMETRIO Administration Potassium Chloride/Dextrose/Sod Cl 1,000 mls @ 125 mls/hr 06/07/20 10:30 06:08 D5 Ns W/ 40 Meq Kcl IV 1,000 mls .Q8H DEMETRIO Administration Ketorolac Tromethamine 30 mg 06/04/20 23:00 06/08/20 06:06 Toradol IVP 06/09/20 23:01 30 mg Q6H DEMETRIO Administration Lorazepam 1 mg 06/03/20 17:37 06/08/20 08:56 Ativan SLOW IVP 1 mg Q6H PRN Administration Anxiety/Agitation Ondansetron HCl 4 mg 06/02/20 19:48 06/07/20 09:10 Zofran IVP 4 mg Q6H PRN Administration Nausea/Vomiting Zolpidem Tartrate 5 mg 06/02/20 19:49 06/02/20 20:33 Ambien PO 5 mg HSPRN PRN Administration Insomnia - Exam General Appearance: awake alert Neck: no JVD Heart: RRR, no murmur Respiratory: CTAB Gastrointestinal: soft, non-tender, diminished bowl sounds Extremities: 1+ LE edema Hosp A/P (1) Ileus Code(s): K56.7 - ILEUS, UNSPECIFIED Status: Acute (2) HTN (hypertension) Code(s): I10 - ESSENTIAL (PRIMARY) HYPERTENSION Status: Chronic Qualifiers: Hypertension type: essential hypertension Qualified Code(s): I10 - Essential (primary) hypertension (3) Hypomagnesemia Code(s): E83.42 - HYPOMAGNESEMIA Status: Acute - Plan NPO iv fluids replace K+/ Mg as indicated
--- NOTE | 2020-06-08 12:34 | PRG ---
DATE OF SERVICE: 06/08/2020 SUBJECTIVE: No acute events overnight. No further nausea or vomiting. Bowel movement x3. She feels hungry and is requesting to advance her diet. Minimal discomfort, well controlled with medications. She denies chest pains, difficulty breathing, headaches, or fevers. OBJECTIVE: VITAL SIGNS: Afebrile. Remains mildly hypertensive, otherwise vitals stable. Urine output 1750, although her appliance has been leaking constantly, so monitoring is uncertain. LUCI 655. GENERAL: No acute distress. Conversant, unlabored breathing. ABDOMEN: Soft, nondistended, nontender, few bowel sounds. Stoma healthy, stents draining. Staple line intact. No signs of infection. LABORATORY DATA: Reviewed. White count 14.2, no evidence of left shift, hemoglobin 10.7, creatinine remained stable, potassium improved to 3.9, magnesium down to 1.2, and pre-albumin 15. ASSESSMENT AND PLAN: Postoperative day #7, radical cystectomy with ileal conduit. Continue out of bed, ambulate, incentive spirometry, deep venous thrombosis and gastrointestinal prophylaxis. I have personally changed her urostomy appliance. If she continues to have leakage, she will need a larger urostomy wafer. Her anatomy is challenging in that the stoma is in a natural fold. Advancing to clear liquids. Job ID: [id number]
--- NOTE | 2020-06-08 21:26 | PDOC.BPN ---
- Brief Progress Note Doing well this morning. Postoperative pain well controlled with current regimen. Tolerating liquid diet, without nausea or vomiting. Endorses flatus and bowel movements. Ambulating independently. EXAM: VS: T 97.9 HR 76 BP 146/90 RR 20 SpO2 [ ] General: Alert and oriented, no acute distress, resting comfortably Pulmonary: No dyspnea or difficulty breathing Abdomen: Soft, non-distended, incisions clean, ureterostomy pink and viable CV: Regular rate and rhythm, palpable distal pulses Extremities: No edema I/O: 1080 oral intake 3225 UOP LABORATORY / IMAGING: Auditory analysis reviewed and demonstrates improving leukocytosis with white blood cell count 14.2. PLAN: 54-year-old female status post radical cystectomy with ileal conduit and hernia repair with lysis of adhesions. Advance diet as tolerated
[2020-06-09] MEDS: Meropenem 2 GM in Sodium Chloride 0.9% 100 ML IVPB SCH ×2 (03:14→09:45)
[2020-06-09] MEDS: Ondansetron PF 4 MG/2 ML Vial IVP PRN ×2 (03:54→10:05)
[2020-06-09] MEDS: Ketorolac Tromethamine 30 MG/ML VIAL IVP SCH ×2 (04:02→11:43)
[2020-06-09] MEDS: Lorazepam 2 MG/ML VIAL SLOW IVP PRN ×2 (04:02→20:41)
[2020-06-09] MEDS: Acetaminophen 500 MG TAB PO SCH ×3 (05:27→17:38)
[2020-06-09] MEDS: Budesonide 0.5 MG/2 ML NEB INH SCH ×2 (06:20→21:06)
[2020-06-09] MEDS: Arformoterol 15 MCG/2 ML NEB NEB SCH ×2 (06:20→21:06)
[2020-06-09 06:21] LABS: #Basophils 0.1 thou/uL (0.0-0.2); #Eosinphils 0.4 thou/uL (0.0-0.7); #Monocytes 1.3 thou/uL (0.11-0.59); %Basophils 0.6 % (0.0-1.0); %Eosinophils 2.8 % (0.0-10.0); %Lymphocytes 26.9 % (21.0-51.0); %Monocytes 8.7 % (0.0-10.0); %Neutrophils 61.1 % (42.0-75.0); Hemoglobin 10.5 g/dL (12.0-16.0); Mean Corpuscular HGB CONC 32.6 g/dL (32.0-36.0); Mean Corpuscular Hemoglobin 29.9 pg (27.0-31.0); Mean Corpuscular Volume 91.8 fL (78.0-98.0); Mean Platelet Volume 7.5 fL (7.4-10.4); Platelet Count 357 thou/uL (130-400); RBC Distribution Width 16.6 % (11.5-14.5); Red Blood Cell (RBC) Count 3.53 mill/uL (4.20-5.40); White Blood Cell (WBC) Count 14.7 thou/uL (4.8-10.8)
[2020-06-09 06:41] LABS: Anion Gap 8 mmol/L (10-20); BUN (Urea Nitrogen) 5 mg/dL (9.8-20.1); Calc. Creatinine Clearance 145 mL/min (70-130); Calcium 7.6 mg/dL (7.8-10.44); Carbon Dioxide 24 mmol/L (22-29); Chloride 107 mmol/L (98-107); Estimated GFR-MDRD Greater than 90; Glucose 89 mg/dL (70-105); Potassium 4.2 mmol/L (3.5-5.1); Sodium 135 mmol/L (136-145)
[2020-06-09] MEDS: D5 0.9% NS w/ 20 mEq KCl 1,000 ML IV SCH (07:38)
--- NOTE | 2020-06-09 09:05 | RAD ---
EXAM: XR Abdomen 2 View DATE: 06/09/2020 7:32 AM INDICATION: Evaluate for ileus COMPARISON: Prior exam dated June 06, 2020 FINDING: The scattered gas-filled loops of small and large bowel are stable. Differential air-fluid levels are seen on the upright images. Lung bases are clear. Bilateral ureteral stents are similar appearing projecting there are right lower quadrant stoma. Surgical clips within the pelvis lower abd omen is similar appearing. Cholecystectomy clips are similar appearing. Lung bases are clear. IMPRESSION:Persistent gas and fluid-filled loops of small and large bowel within the abdomen with warren e differential air-fluid levels may reflect a persistent postoperative ileus versus [id number] partial small bowel obstruction.
--- NOTE | 2020-06-09 09:07 | PRG ---
DATE OF SERVICE: 06/09/2020 SUBJECTIVE: The patient has mild nausea, however, tolerating clears. Has had multiple bowel movements. Events over the weekend reviewed. Denies headache. She denies chest pain, shortness of breath. Tolerating clears. No emesis. Had one episode of emesis on Tuesday night. Subsequently, tolerating clears. Despite my recommendations that she cannot have carbonated drinks, there are multiple carbonated drinks at bedside. This has been an issue ongoing with Ms. Montelongo where she is noncompliant with recommendations pre/peroperatively, postop ileus instructions. Nevertheless, she is passing flatus, having bowel movements, clears restarted. OBJECTIVE: VITAL SIGNS: Stable. She is afebrile. Current blood pressure demonstrates hypertension, amlodipine started by hospitalist. I's and O's 2450 at 5, 1925 out. LUCI 375, serous; urine output clear at 1550. GENERAL: The patient is in no acute distress. HEART: Regular rate. LUNGS: Clear. ABDOMEN: Demonstrates much less distention. It is soft. Incision isn't clean, dry, and intact with no significant discharge. LUCI demonstrates serous output. Ileal conduit is healthy. ureteral stent sutures were removed. Conduit appliance reapplied with a convex stoma appliance. Significant time spent with the patient regarding appropriate appliance use. Care was taken not to dislodge the previous ureteral stents. I re-sutured her ureteral stents back to her skin site just adjacent to her stoma. It appeared to have migrated somewhat. EXTREMITIES: No cyanosis, clubbing, or edema. No calf tenderness. PERTINENT LABORATORY DATA: White count 14, hemoglobin 10, and platelet 357. Creatinine 0.5. Previous magnesium was replaced. I will recheck a magnesium. IMPRESSION AND PLAN: 1. Ms. Montelongo is a 54-year-old female, postop day #7, status post radical cystectomy, pelvic exenteration, bilateral pelvic lymph node dissection, ileal conduit. 2. Ileus is resolving. I will check a followup KUB acute abdominal series regarding her ureteral stent position, pending review of KUB. I will slowly advance her diet. It has been very challenging to deal with Ms. Montelongo, she often times threatens to leave the hospital. I informed her again the importance of bowel regimen as dictated by her surgeons. I informed her regarding strict I's and O's, no carbonated drinks again reviewed, however, bottles remain at bedside. She is to be aggressively out of bed. Job ID: [id number] [facility]
[2020-06-09] MEDS: Amlodipine 5 MG TAB PO SCH (09:42)
[2020-06-09] MEDS: Enoxaparin Sodium 40 MG/0.4 ML SYRINGE SC SCH (09:44)
[2020-06-09] MEDS: Famotidine/PF 20 mg/2ml Vial SLOW IVP SCH (09:44)
[2020-06-09] MEDS: Folic Acid 0.4 MG in Syringe 0 ML SC SCH (09:44)
[2020-06-09] MEDS: D5 NS w/ 40 mEq KCl 1,000 ML IV SCH (09:45)
[2020-06-09] MEDS: hydrALAZINE 20 MG/ML VIAL SLOW IVP PRN (11:44)
[2020-06-09] MEDS ORDERED: traMADol HCl 50 MG TAB PO PRN ×3 (13:39→16:31)
[2020-06-09] MEDS ORDERED: HYDROcodone/Acetaminophen 5/325 mg Tablet PO PRN ×2 (13:40)
[2020-06-09] MEDS ORDERED: Ketorolac Tromethamine 30 MG/ML VIAL IVP PRN ×2 (13:42→14:25)
--- NOTE | 2020-06-09 13:58 | PRG ---
DATE OF SERVICE: 06/09/2020 SUBJECTIVE: Today, she is doing well, but she states "I'm not eating that crap" and she wants solid food. She has had a bowel movement. She is passing flatus. OBJECTIVE: VITAL SIGNS: Temperature 97.9, blood pressure 164/106, respiratory rate 18. LUNGS: Clear to auscultation. CARDIAC: Regular rate and rhythm without murmur or gallop. ABDOMEN: Soft and nontympanitic as she was before. LABORATORY DATA: This morning, her white count is 14, hemoglobin 10. Basic metabolic profile is normal. ASSESSMENT AND PLAN: The patient is doing well overall. At this point, would recommend stopping her IV fluids. Advancing her to a regular diet. Job ID: [id number]
[2020-06-09] MEDS: traMADol HCl 50 MG TAB PO PRN (17:38)
--- NOTE | 2020-06-09 18:26 | PDOC.HOSPP ---
- Subjective Encounter Date: 06/09/20 Encounter Time: 13:10 Subjective: f/u s/p radical cystectomy with LN dissection, ileal conduit POD #7 with resolving ileus. Wants to eat regular diet. - Objective Vital Signs & Weight: Vital Signs (12 hours) Temp Pulse Resp BP BP Pulse Ox 06/09/20 16:12 97.5 F L 82 18 140/85 99 06/09/20 11:44 81 164/106 H 06/09/20 11:33 97.9 F 81 18 96 06/09/20 09:42 81 06/09/20 07:00 97.9 F 81 14 152/96 H 96 Weight Admit Weight 175 lb Weight 175 lb 7.807 oz Most Recent Monitor Data Heart Rate from ECG 108 NIBP 145/87 NIBP BP-Mean 106 Respiration from ECG 15 SpO2 93 I&O: 06/08/20 06/09/20 06/10/20 06:59 06:59 06:59 Intake Total 1575 4195 Output Total 2416 3895 Balance -841 300 Result Diagrams: 06/09/20 06:11 06/09/20 06:11 Additional Labs: Accuchecks 06/09/20 06/08/20 05:22 21:29 POC Glucose 100 113 H Radiology Reviewed by me: Yes (KUB - persistent gas/fluid-filled loops of bowel) Hospitalist ROS - Medication Medications: Active Medications Generic Name Dose Route Start Last Admin Trade Name Freq PRN Reason Stop Dose Admin Acetaminophen 1,000 mg 06/05/20 12:00 06/09/20 17:38 Tylenol PO 1,000 mg Q6HR DEMETRIO Administration Albuterol/Ipratropium 3 ml 06/03/20 13:00 06/09/20 12:32 Duoneb EZPAP Not Given [id number] DEMETRIO Amlodipine Besylate 2.5 mg 06/08/20 09:00 06/09/20 09:42 Norvasc PO 2.5 mg DAILY DEMETRIO Administration Arformoterol Tartrate 15 mcg 06/03/20 18:30 06/09/20 06:20 Brovana NEB Not Given BID-RT DEMETRIO Budesonide 0.5 mg 06/03/20 18:30 06/09/20 06:20 Pulmicort Neb Solution INH Not Given BID-RT DEMETRIO Enoxaparin Sodium 40 mg 06/08/20 09:00 06/09/20 09:44 Lovenox SC 40 mg 0900 DEMETRIO Administration Hydralazine HCl 20 mg 06/02/20 15:41 06/09/20 11:44 Apresoline SLOW IVP 20 mg Q4H PRN Administration SBP greater than 160/100 Folic Acid 0.4 mg/ Syringe 0.08 mls @ 4.8 mls/hr 06/07/20 09:00 06/09/20 09: 44 SC 0.08 mls DAILY DEMETRIO Administration Lorazepam 1 mg 06/03/20 17:37 06/09/20 04:02 Ativan SLOW IVP 1 mg Q6H PRN Administration Anxiety/Agitation Ondansetron HCl 4 mg 06/02/20 19:48 06/09/20 10:05 Zofran IVP 4 mg Q6H PRN Administration Nausea/Vomiting Tramadol HCl 100 mg 06/09/20 16:31 06/09/20 17:38 Ultram PO 100 mg Q6H PRN Administration Pain 7-10 - Exam General Appearance: NAD, awake alert Eye: PERRL, anicteric sclera ENT: normocephalic atraumatic, no oropharyngeal lesions Neck: supple, symmetric, no JVD, no thyromegaly, no lymphadenopathy Heart: RRR, no gallops, no rubs, normal peripheral pulses Heart - other findings: S1, S2 Respiratory: CTAB, no wheezes, no rales, no ronchi, normal chest expansion Gastrointestinal: soft, normal bowel sounds, no palpable masses Gastrointestinal - other findings: post-surgical changes with ileal conduit intact Extremities: no cyanosis, no clubbing, no edema Skin: normal turgor Neurological: cranial nerve grossly intact, no new deficit Musculoskeletal: normal tone, normal strength Psychiatric: normal affect, A&O x 3 Hosp A/P (1) Ileus Code(s): K56.7 - ILEUS, UNSPECIFIED Status: Acute Plan: Slowly resolving, advancing diet, monitor for tolerance, OOB/ambulate (2) S/P hernia repair Code(s): Z98.890 - OTHER SPECIFIED POSTPROCEDURAL STATES; Z87.19 - PERSONAL HISTORY OF OTHER DISEASES OF THE DIGESTIVE SYSTEM Status: Acute Plan: POD #7, pain control, OOB with ambulation (3) S/P ileal conduit Code(s): Z93.6 - OTHER ARTIFICIAL OPENINGS OF URINARY TRACT STATUS Status: Acute Plan: POD #7, see above, local care (4) HTN (hypertension) Code(s): I10 - ESSENTIAL (PRIMARY) HYPERTENSION Status: Chronic Qualifiers: Hypertension type: essential hypertension Qualified Code(s): I10 - Essential (primary) hypertension (5) Bladder cancer Status: Acute Plan: s/p exenteration with cystectomy/hysterectomy/LN dissection - Plan psychiatric social worker supervisor, out of bed/ambulate, DVT proph w/SCDs Stable currently Advancing diet OOB with PT Pain control DVT PPX AM lab: BMP, CBC, Mg++
[2020-06-09] MEDS ORDERED: Calcium Carbonate 500 MG ChewTAB PO PRN (22:01)
[2020-06-10] MEDS: Acetaminophen 500 MG TAB PO SCH ×4 (00:35→19:31)
[2020-06-10] MEDS: traMADol HCl 50 MG TAB PO PRN ×3 (02:30→20:39)
[2020-06-10 06:08] LABS: #Eosinphils 0.4 thou/uL (0.0-0.7); #Monocytes 1.3 thou/uL (0.11-0.59); #Neutrophils 8.9 thou/uL (1.40-6.50); %Basophils 0.3 % (0.0-1.0); %Eosinophils 2.7 % (0.0-10.0); %Lymphocytes 27.2 % (21.0-51.0); %Neutrophils 60.7 % (42.0-75.0); Hemoglobin 10.8 g/dL (12.0-16.0); Mean Corpuscular HGB CONC 31.1 g/dL (32.0-36.0); Mean Corpuscular Hemoglobin 28.7 pg (27.0-31.0); Mean Corpuscular Volume 92.2 fL (78.0-98.0); Mean Platelet Volume 7.7 fL (7.4-10.4); Platelet Count 397 thou/uL (130-400); RBC Distribution Width 16.4 % (11.5-14.5); Red Blood Cell (RBC) Count 3.76 mill/uL (4.20-5.40); White Blood Cell (WBC) Count 14.7 thou/uL (4.8-10.8)
[2020-06-10 06:27] LABS: Anion Gap 10 mmol/L (10-20); BUN (Urea Nitrogen) 10 mg/dL (9.8-20.1); Calc. Creatinine Clearance 125 mL/min (70-130); Calcium 8.1 mg/dL (7.8-10.44); Carbon Dioxide 22 mmol/L (22-29); Chloride 105 mmol/L (98-107); Estimated GFR-MDRD Greater than 90; Glucose 89 mg/dL (70-105); Magnesium 1.4 mg/dL (1.6-2.6); Potassium 3.9 mmol/L (3.5-5.1); Sodium 133 mmol/L (136-145)
--- NOTE | 2020-06-10 07:11 | PRG ---
DATE OF SERVICE: 06/10/2020 SUBJECTIVE: She has minimal discomfort. Pain is adequately controlled with Tylenol, Ultram p.r.n. She has been tolerating regular diet, with resolution of nausea, no emesis. However, she began to have loose bowel movement last night. Vital signs are stable. She is afebrile. I's and O's this morning not yet up. Yesterday, her urine output was 3200. LUCI about 200 over the last 12 hours. However, it appears that the patient empty the drain herself. Therefore, strict I's and O's in the LUCI not accurate. It is serous in caliber. She often relates that she often verbally threatens to leave AMA, She has been known to be noncompliant with her perioperative care. OBJECTIVE: GENERAL: The patient is in no acute distress. LUNGS: Clear. ABDOMEN: Soft. Her abdominal distention has resolved. Incision is clean, dry , and active. Bowel sounds are active. Conduit itself healthy and functional LUCI demonstrates serous output. Urine output clear. Bilateral ureteral stents exiting the conduit noted. Her ostomy reinforced. No significant vaginal discharge noted. EXTREMITIES: No cyanosis, clubbing, or edema. PERTINENT LABORATORY DATA: White count 14, which is stable; hemoglobin 10, Sodium 133, BUN 10, creatinine 0.6, magnesium 1.4, and potassium is within normal limits. IMPRESSION AND PLAN: Ms. Montelongo is a 54-year-old female, postop day #8 status post radical cystectomy, pelvic exoneration, bilateral pelvic lymph node dissection, ileal conduit, incisional hernia repair. 1. Ileus, resolving as she is tolerating regular diet and now having bowel movements. However, loose bowel movements. Clostridium difficile has been ordered. I will have wound care continue to teach her conduit care. will need to order a conduit appliance malleable to fit her stoma to allow better seal. 2. Anxiety. She has Ativan ordered p.r.n. will provide Xanax per her request. In every morning rounds, I discussed with her regarding her major surgery she underwent recently, moreover she has been difficult with compliance with perioperative care. Importance of following directions again outlined. Await Clostridium difficile, her antibiotic has been discontinued. She remains stable. I informed her that we will need to monitor for resolution of diarrhea. Clostridium difficile results need to be finalized before discharge. Overall, the patient is doing better. Hypertension: Amlodipine provided by hospitalist will increase to 5 mg 1 p.o. daily if persistent hypertension, either hospitalist or cardiology will need to provide outpatient p.o. hypertensive meds. She has minimal discomfort, I do not attribute her hypertension to pain episodes as it is adequately controlled with tramadol, Tylenol. Job ID: [id number] [facility]
[2020-06-10] MEDS: Arformoterol 15 MCG/2 ML NEB NEB SCH (08:11)
[2020-06-10] MEDS: Budesonide 0.5 MG/2 ML NEB INH SCH (08:11)
[2020-06-10] MEDS: Magnesium Oxide 400 MG TAB PO SCH (08:20)
[2020-06-10] MEDS: Enoxaparin Sodium 40 MG/0.4 ML SYRINGE SC SCH (08:20)
[2020-06-10] MEDS: Folic Acid 0.4 MG in Syringe 0 ML SC SCH (08:21)
[2020-06-10] MEDS: Amlodipine 5 MG TAB PO SCH (08:21)
[2020-06-10] MEDS: Polyethylene Glycol 3350 17 GM Packet PO SCH (08:44)
--- NOTE | 2020-06-10 09:46 | PRG ---
DATE OF SERVICE: 06/10/2020 SUBJECTIVE: Codi Montelongo is doing well today. She complains of food. She is on a regular diet. She reports bowel movements, but reports the stools are liquid. C. diff has been ordered and reveals negative antigen and toxin. Antibiotics discontinued. OBJECTIVE: VITAL SIGNS: 98.2 degrees, 89, and 144/92. LUNGS: Clear to auscultation. CARDIAC: Regular rate and rhythm without murmur or gallop. ABDOMEN: Soft plus bowel sounds. Midline wound looks good. The patient reports she is having problems with ileostomy leakage. She feels weak. LABORATORY DATA: Laboratories were stable and normal. ASSESSMENT AND PLAN: Status post hysterectomy, cystectomy, ileal conduit, lysis of adhesion, incisional hernia repair. Her gastrointestinal function is good. At this point, she is doing well. LUCI drain per Urology. Ileostomy appliance per stoma care. The patient is ready to be discharged in the next day or two. We will ask case management coordinator to see her regarding any home health services to help her with the stoma care. We would recommend she see stoma therapist as an outpatient or [facility], who has a stoma therapist on their staff. The patient is ready for discharge any time. Job ID: [id number]
[2020-06-10] MEDS: Ondansetron PF 4 MG/2 ML Vial IVP PRN (13:48)
[2020-06-10] MEDS: Mag-Al 1200 mg/1200 mg/30 ML UDCUP PO PRN ×2 (16:13→20:44)
--- NOTE | 2020-06-10 18:07 | PDOC.HOSPP ---
- Subjective Encounter Date: 06/10/20 Encounter Time: 17:55 Subjective: f/u s/p radical cystectomy, ileal conduit/LN dissection POD #8. Overall doing ok with liquid BM's, tolerating po intake. - Objective Vital Signs & Weight: Vital Signs (12 hours) Temp Pulse Resp BP Pulse Ox 06/10/20 15:40 98.0 F 86 16 166/97 H 97 06/10/20 11:01 98.2 F 82 16 159/95 H 94 L 06/10/20 08:21 89 06/10/20 07:12 98.2 F 89 16 144/92 H 97 Weight Admit Weight 175 lb Weight 175 lb 7.807 oz Most Recent Monitor Data Heart Rate from ECG 108 NIBP 145/87 NIBP BP-Mean 106 Respiration from ECG 15 SpO2 93 I&O: 06/09/20 06/10/20 06/11/20 06:59 06:59 06:59 Intake Total 4195 240 Output Total 3895 1200 Balance 300 -960 Result Diagrams: 06/10/20 05:34 06/10/20 05:34 Additional Labs: Accuchecks 06/10/20 06/10/20 06/10/20 15:49 11:11 05:44 POC Glucose 87 81 94 06/09/20 20:56 POC Glucose 103 Hospitalist ROS - Medication Medications: Active Medications Generic Name Dose Route Start Last Admin Trade Name Freq PRN Reason Stop Dose Admin Acetaminophen 1,000 mg 06/05/20 12:00 06/10/20 13:48 Tylenol PO 1,000 mg Q6HR DEMETRIO Administration Al Hydroxide/Mg Hydroxide 30 ml 06/10/20 13:08 06/10/20 16:13 Maalox PO 30 ml Q4H PRN Administration Heartburn or Indigestion Amlodipine Besylate 5 mg 06/10/20 09:00 06/10/20 08:21 Norvasc PO 5 mg DAILY DEMETRIO Administration Calcium Carbonate 1,000 mg 06/09/20 22:01 06/10/20 06:34 Tums PO 1,000 mg Q4H PRN Administration Heartburn or Indigestion Enoxaparin Sodium 40 mg 06/08/20 09:00 06/10/20 08:20 Lovenox SC 40 mg 0900 DEMETRIO Administration Hydralazine HCl 20 mg 06/02/20 15:41 06/09/20 11:44 Apresoline SLOW IVP 20 mg Q4H PRN Administration SBP greater than 160/100 Folic Acid 0.4 mg/ Syringe 0.08 mls @ 4.8 mls/hr 06/07/20 09:00 06/10/20 08: 21 SC 0.08 mls DAILY DEMETRIO Administration Lorazepam 1 mg 06/03/20 17:37 06/09/20 20:41 Ativan SLOW IVP 1 mg Q6H PRN Administration Anxiety/Agitation Magnesium Oxide 400 mg 06/10/20 09:00 06/10/20 08:20 Magnesium Oxide PO 400 mg DAILY DEMETRIO Administration Ondansetron HCl 4 mg 06/02/20 19:48 06/10/20 13:48 Zofran IVP 4 mg Q6H PRN Administration Nausea/Vomiting Polyethylene Glycol 17 gm 06/10/20 09:00 06/10/20 08:44 Miralax PO Not Given DAILY DEMETRIO Tramadol HCl 100 mg 06/09/20 16:31 06/10/20 08:21 Ultram PO 100 mg Q6H PRN Administration Pain 7-10 - Exam General Appearance: NAD, awake alert Eye: PERRL, anicteric sclera ENT: normocephalic atraumatic, no oropharyngeal lesions Neck: supple, symmetric, no JVD, no thyromegaly, no lymphadenopathy Heart: RRR, no murmur, no gallops, no rubs, normal peripheral pulses Heart - other findings: S1, S2 Respiratory: CTAB, no wheezes, no rales, no ronchi, normal chest expansion Gastrointestinal: soft, non-distended, normal bowel sounds Gastrointestinal - other findings: post-surgical changes, ostomy in place Extremities: no cyanosis, no clubbing, no edema Skin: normal turgor, no lesions Neurological: cranial nerve grossly intact, no new deficit Musculoskeletal: normal tone, normal strength Psychiatric: normal affect, A&O x 3 Hosp A/P (1) Ileus Code(s): K56.7 - ILEUS, UNSPECIFIED Status: Acute Plan: Resolving, advancing diet as tolerated (2) S/P hernia repair Code(s): Z98.890 - OTHER SPECIFIED POSTPROCEDURAL STATES; Z87.19 - PERSONAL HISTORY OF OTHER DISEASES OF THE DIGESTIVE SYSTEM Status: Acute (3) S/P ileal conduit Code(s): Z93.6 - OTHER ARTIFICIAL OPENINGS OF URINARY TRACT STATUS Status: Acute (4) HTN (hypertension) Code(s): I10 - ESSENTIAL (PRIMARY) HYPERTENSION Status: Chronic Qualifiers: Hypertension type: essential hypertension Qualified Code(s): I10 - Essential (primary) hypertension (5) Bladder cancer Status: Acute - Plan social service technician, out of bed/ambulate, DVT proph w/SCDs Stable currently Advancing diet OOB with PT Pain control Stoma care education DVT PPX Likely home in am 06/11/20
[2020-06-10] MEDS: ALPRAZolam 0.25 MG TAB PO PRN (20:44)
[2020-06-11] MEDS: Acetaminophen 500 MG TAB PO SCH ×3 (00:19→12:32)
[2020-06-11] MEDS: Ondansetron PF 4 MG/2 ML Vial IVP PRN (05:40)
[2020-06-11] MEDS: traMADol HCl 50 MG TAB PO PRN (05:44)
[2020-06-11 06:02] LABS: #Basophils 0.1 thou/uL (0.0-0.2); #Eosinphils 0.6 thou/uL (0.0-0.7); #Lymphocytes 4.8 thou/uL (1.20-3.40); #Monocytes 1.3 thou/uL (0.11-0.59); #Neutrophils 7.1 thou/uL (1.40-6.50); %Basophils 0.6 % (0.0-1.0); %Eosinophils 4.7 % (0.0-10.0); %Lymphocytes 34.4 % (21.0-51.0); %Monocytes 9.4 % (0.0-10.0); Hemoglobin 10.9 g/dL (12.0-16.0); Mean Corpuscular HGB CONC 31.4 g/dL (32.0-36.0); Mean Corpuscular Hemoglobin 29.1 pg (27.0-31.0); Mean Corpuscular Volume 92.4 fL (78.0-98.0); Mean Platelet Volume 7.5 fL (7.4-10.4); Platelet Count 407 thou/uL (130-400); RBC Distribution Width 16.2 % (11.5-14.5); Red Blood Cell (RBC) Count 3.74 mill/uL (4.20-5.40); White Blood Cell (WBC) Count 13.8 thou/uL (4.8-10.8)
[2020-06-11 06:21] LABS: Anion Gap 11 mmol/L (10-20); BUN (Urea Nitrogen) 11 mg/dL (9.8-20.1); Calc. Creatinine Clearance 123 mL/min (70-130); Calcium 7.9 mg/dL (7.8-10.44); Carbon Dioxide 24 mmol/L (22-29); Chloride 102 mmol/L (98-107); Estimated GFR-MDRD Greater than 90; Glucose 89 mg/dL (70-105); Magnesium 1.3 mg/dL (1.6-2.6); Potassium 3.6 mmol/L (3.5-5.1); Sodium 133 mmol/L (136-145)
--- NOTE | 2020-06-11 07:06 | PRG ---
DATE OF SERVICE: 06/11/2020 SUBJECTIVE: The patient is feeling well, tolerating regular diet. She has occasional nausea; however, no emesis. She has had multiple bowel movements, loose; however, this is getting more formed and less frequent. Her C. diff was checked , which is negative. OBJECTIVE: VITAL SIGNS: Stable. I's and O's yet to be documented from this morning. Her blood pressure tends to be somewhat hypertensive at 157/82, 160s/ 90s. The patient is asymptomatic. HEENT: Grossly unremarkable. HEART: Regular rate. LUNGS: Clear. ABDOMEN: Soft. Incision is clean, dry, and intact. Her stoma appliance has stayed and with no leakage noted. Conduit healthy and viable and LUCI demonstrates serous output consistent with peritoneal fluid. EXTREMITIES: No cyanosis, clubbing, or edema. PERTINENT LABORATORY DATA: White count stable at 13, hemoglobin 10.9, creatinine 0.6, potassium 3.6, magnesium low at 1.3. She remains on magnesium oxalate. IMPRESSION AND PLAN: Ms. Montelongo is a 54-year-old female, postop day #9 status post radical cystectomy, bilateral pelvic lymph node dissection, pelvic exoneration, incisional hernia repair. The patient is stable, having regular bowel movements. Her blood pressure has been labile, hypertensive. will need to reach out to her paid internship regarding outpatient blood pressure medication. Await stoma teaching, anticipate discharge this afternoon. LUCI creatinine is pending. I would like to see the results before we remove her LUCI prior to discharge. Job ID: [id number] MTDD
[2020-06-11] MEDS ORDERED: Non-Formulary Item 1 EACH (Omeprazole [Omeprazole] 20 MG) PO SCH (07:45)
[2020-06-11] MEDS ORDERED: Aspirin 81 mg Enteric Coated Tablet PO SCH (07:45)
[2020-06-11] MEDS ORDERED: Magnesium Sulfate 4 GM in Sodium Chloride 0.9% 250 ML 250 ML IVPB SCH (08:00)
[2020-06-11] MEDS: Enoxaparin Sodium 40 MG/0.4 ML SYRINGE SC SCH (08:21)
[2020-06-11] MEDS: Polyethylene Glycol 3350 17 GM Packet PO SCH (08:21)
[2020-06-11] MEDS: ALPRAZolam 0.25 MG TAB PO PRN ×2 (08:21→15:43)
[2020-06-11] MEDS: Folic Acid 0.4 MG in Syringe 0 ML SC SCH (08:21)
[2020-06-11] MEDS: Magnesium Oxide 400 MG TAB PO SCH (08:21)
[2020-06-11] MEDS: Amlodipine 5 MG TAB PO SCH (08:21)
[2020-06-11 08:26] VITALS: TEMP 98.2
[2020-06-11] MEDS ORDERED: HYDROcodone/Acetaminophen 5/325 mg Tablet PO PRN ×2 (10:17)
--- NOTE | 2020-06-11 11:30 | PDOC.HOSPP ---
- Subjective Encounter Date: 06/11/20 Encounter Time: 08:10 Subjective: Patient seen and examined. No new complaints. No overnight events - Objective Vital Signs & Weight: Vital Signs (12 hours) Temp Pulse Resp BP Pulse Ox 06/11/20 07:56 98.2 F 84 18 137/91 H 95 06/11/20 03:35 98.1 F 83 16 136/85 96 Weight Admit Weight 175 lb Weight 175 lb 7.807 oz Most Recent Monitor Data Heart Rate from ECG 108 NIBP 145/87 NIBP BP-Mean 106 Respiration from ECG 15 SpO2 93 I&O: 06/10/20 06/11/20 06/12/20 06:59 06:59 06:59 Intake Total 240 720 Output Total 1200 1505 Balance -960 -785 Result Diagrams: 06/11/20 05:30 06/11/20 05:30 Additional Labs: Accuchecks 06/11/20 06/10/20 06/10/20 04:35 21:06 15:49 POC Glucose 88 98 87 06/10/20 11:11 POC Glucose 81 Hospitalist ROS - Review of Systems ENT: denies: ear pain, ear discharge, nose pain, nose discharge, nose congestion , mouth pain, mouth swelling, throat pain, throat swelling, other Respiratory: denies: cough, dry, shortness of breath, hemoptysis, SOB with excertion, pleuritic pain, sputum, wheezing, other Cardiovascular: denies: chest pain, palpitations, orthopnea, paroxysmal noc. dyspnea, edema, light headedness, other Gastrointestinal: denies: nausea, vomiting, abdominal pain, diarrhea, constipation, melena, hematochezia, other Genitourinary: denies: dysuria, frequency, incontinence, hematuria, retention, other Musculoskeletal: denies: neck pain, shoulder pain, arm pain, back pain, hand pain, leg pain, foot pain, other - Medication Medications: Active Medications Generic Name Dose Route Start Last Admin Trade Name Freq PRN Reason Stop Dose Admin Acetaminophen 1,000 mg 06/05/20 12:00 06/11/20 06:50 Tylenol PO Not Given Q6HR DEMETRIO Al Hydroxide/Mg Hydroxide 30 ml 06/10/20 13:08 06/10/20 20:44 Maalox PO 30 ml Q4H PRN Administration Heartburn or Indigestion Alprazolam 0.25 mg 06/10/20 06:42 06/11/20 08:21 Xanax PO 0.25 mg TIDPRN PRN Administration Anxiety Amlodipine Besylate 5 mg 06/10/20 09:00 06/11/20 08:21 Norvasc PO 5 mg DAILY DEMETRIO Administration Calcium Carbonate 1,000 mg 06/09/20 22:01 06/10/20 06:34 Tums PO 1,000 mg Q4H PRN Administration Heartburn or Indigestion Enoxaparin Sodium 40 mg 06/08/20 09:00 06/11/20 08:21 Lovenox SC 40 mg 0900 DEMETRIO Administration Hydralazine HCl 20 mg 06/02/20 15:41 06/09/20 11:44 Apresoline SLOW IVP 20 mg Q4H PRN Administration SBP greater than 160/100 Folic Acid 0.4 mg/ Syringe 0.08 mls @ 4.8 mls/hr 06/07/20 09:00 06/11/20 08: 21 SC 0.08 mls DAILY DEMETRIO Administration Lorazepam 1 mg 06/03/20 17:37 06/09/20 20:41 Ativan SLOW IVP 1 mg Q6H PRN Administration Anxiety/Agitation Magnesium Oxide 400 mg 06/10/20 09:00 06/11/20 08:21 Magnesium Oxide PO 400 mg DAILY [facility] Administration Ondansetron HCl 4 mg 06/02/20 19:48 06/11/20 05:40 Zofran IVP 4 mg Q6H PRN Administration Nausea/Vomiting Polyethylene Glycol 17 gm 06/10/20 09:00 06/11/20 08:21 Miralax PO Not Given DAILY [facility] Tramadol HCl 100 mg 06/09/20 16:31 06/11/20 05:44 Ultram PO 100 mg Q6H PRN Administration Pain 7-10 - Exam General Appearance: NAD, awake alert Eye: PERRL, anicteric sclera ENT: normocephalic atraumatic, no oropharyngeal lesions Neck: supple, symmetric, no JVD, no thyromegaly Heart: RRR, no murmur, no gallops, no rubs Respiratory: no wheezes, no rales Gastrointestinal: soft, non-tender, non-distended, normal bowel sounds Extremities: no cyanosis, no clubbing Skin: normal turgor, no lesions Neurological: no focal deficits Musculoskeletal: normal tone, normal strength Psychiatric: normal affect, normal behavior Hosp A/P (1) Hypomagnesemia Code(s): E83.42 - HYPOMAGNESEMIA Status: Acute (2) Ileus Code(s): K56.7 - ILEUS, UNSPECIFIED Status: Acute (3) Postoperative anemia Code(s): D64.9 - ANEMIA, UNSPECIFIED Status: Acute (4) S/P hernia repair Code(s): Z98.890 - OTHER SPECIFIED POSTPROCEDURAL STATES; Z87.19 - PERSONAL HISTORY OF OTHER DISEASES OF THE DIGESTIVE SYSTEM Status: Acute (5) S/P ileal conduit Code(s): Z93.6 - OTHER ARTIFICIAL OPENINGS OF URINARY TRACT STATUS Status: Acute (6) HTN (hypertension) Code(s): I10 - ESSENTIAL (PRIMARY) HYPERTENSION Status: Chronic Qualifiers: Hypertension type: essential hypertension Qualified Code(s): I10 - Essential (primary) hypertension (7) Acute urinary retention Code(s): R33.8 - OTHER RETENTION OF URINE Status: Acute (8) Bladder cancer Status: Acute (9) GERD (gastroesophageal reflux disease) Code(s): K21.9 - GASTRO-ESOPHAGEAL REFLUX DISEASE WITHOUT ESOPHAGITIS Status: Acute (10) Tobacco abuse disorder Code(s): Z72.0 - TOBACCO USE Status: Acute - Plan old records reviewed/req Patient seen and examined bedside today, overall patient is doing much better, urology will decide about discharging her later on today I have reviewed all her medication Discharge medication will defer to urology
[2020-06-11 12:16] VITALS: BP 136/83
--- NOTE | 2020-06-11 14:12 | PRG ---
DATE OF SERVICE: 06/11/2020 SUBJECTIVE: Codi Montelongo is doing well. She is tolerating her diet. She is having bowel movements. Her stoma has been applied and is doing well as far as function. Her ileal conduit is healthy in appearance. OBJECTIVE: LUNGS: Clear to auscultation. CARDIAC: Regular rate and rhythm without murmur or gallop. ABDOMEN: Soft, nontender. ASSESSMENT/PLAN: She is nine days postoperatively and her yeimi were removed. She can be discharged home anytime per Urology. We will see her in my office in 2 to 3 weeks. No lifting over 25 to 30 pounds. Job ID: [id number]
--- NOTE | 2020-06-11 15:28 | DIS ---
DATE OF ADMISSION: 06/02/2020 DATE OF DISCHARGE: 06/11/2020 DISPOSITION: To home with home health and outpatient wound care with ostomy teaching. CONDITION: Stable. DISCHARGE MEDICATIONS: . Lisinopril 5 mg one p.o. daily per Dr. Sullivan. Tramadol 50 mg #40 one to two p.o. q.6 hours p.r.n. Zofran 4 mg one p.o. q.6 hours p.r.n. Omeprazole.. Magnesium oxalate. . MiraLAX p.r.n. BRIEF HOSPITAL COURSE: Ms. Montelongo is a 54-year-old female with history of muscle invasive bladder cancer initially diagnosed couple of months ago, status post TURBT as she presented with critical anemia with hemoglobin of 3. She was found to have muscle invasive bladder cancer and underwent neoadjuvant chemotherapy. She subsequently presented for radical cystectomy, pelvic exoneration, ileal conduit , bilateral pelvic lymph node dissection. She is fully informed regarding treatment course, recommendations, and alternative options have been discussed. It has been very challenging to treat Ms. Montelongo, as she has issues with followup compliance and directions regarding her perioperative care. Surgery was uneventful. She had significant adhesions from prior surgery and an incisional hernia. Dr. Davila did repair her incisional hernia and assisted with lysis of adhesions as they were quite adherent to the anterior rectus sheath. She was observed in the ICU for a day and transitioned to the surgical floor. She required 1 unit of blood, however, this was a slow trend overall. She did develop postop ileus, which resolved with observation. She did not require an NG tube. Despite my recommendations of preoperative bowel regimen, she did not comply as well as postoperative strict instructions regarding n.p.o. She was found on postop day #1, drinking fluids despite multiple recommendations to hold p.o. intake. Nevertheless, she developed ileus, subsequently resolved with observation. She has been tolerating regular diet, however, subsequently developed some diarrhea, which resolved with observation as well. C. difficile was negative. her labs remained stable with normal creatinine. LUCI creatinine was ordered prior to removal of her drain and drain removed uneventfully. Stoma teaching was provided, she did have some issues with initial appliance as it was a rigid appliance. With a culdoplasty conduit stoma, she has had no issues with leakage from her conduit of concern. Strict instructions regarding stoma care was provided. Tova removed on day of discharge by General Surgery. LUCI removed. Condition, stable. She has followup appointment with Dr. Davila, Dr. Sullivan, primary care, myself, which appointment is provided on June 16. will also coordinate outpatient wound care followup the same day. Due to her medicated, it is somewhat hindering to proceed with Home Health traditions for ostomy. Therefore, we will have her follow up with Wound Care on Tuesday, the day of my appointment to see her as well. Over 35/45 minutes spent with patient coordinating with subspecialist, arranging outpatient follow-up wound care case management Job ID: [id number] ANA
[2020-06-12] MEDS ORDERED: Aspirin Chewable 81 MG TAB PO SCH (09:00)
--- NOTE | 2020-06-12 12:59 | DIS ---
DATE OF ADMISSION: 06/02/2020 DATE OF DISCHARGE: 06/11/2020 PRIMARY CARE PHYSICIAN: [facility] Call admission. Dr. Marcos is primary care physician. DISCHARGE DISPOSITION: Home. PRIMARY DISCHARGE DIAGNOSES: 1. Ileus, resolved. 2. Status post hernia repair. 3. Status post ileal conduit. 4. Bladder cancer. 5. Urinary retention. SECONDARY DISCHARGE DIAGNOSIS: Hypertension. PRIMARY PROCEDURE/OPERATION: Radical cystectomy, bilateral pelvic lymph node dissection, pelvic exenteration, total hysterectomy, bilateral oophorectomy, lysis of adhesion, small-bowel anastomosis for formation of ileal conduit, incisional hernia repair, left subclavian central line placement. RADIOLOGICAL INVESTIGATION: Echocardiography showed EF 60% to 65%. Chest x-ray, abdomen x-ray. SIGNIFICANT LABORATORY DATA: WBC 13.8, hemoglobin 10.9, platelets 407. INR 1.3. Sodium 133, creatinine 0.67, magnesium 1.3. C diff negative. DISCHARGE MEDICATIONS: 1. Lisinopril 5 mg p.o. daily. 2. Tramadol 50 mg q.6 hourly p.r.n. 3. Omeprazole 20 mg p.o. daily as directed. 4. Tums 1 g q.4 hourly p.r.n. 5. Magnesium oxide 400 mg p.o. daily. 6. MiraLAX 17 g p.o. daily. CONTRAINDICATION: None. CODE STATUS: Full code. INPATIENT CONSULT: Dr. Davila for primary, Dr. Carr was consulted for ileal conduit. Team was consulted for medical management. Cardiology was following for preoperative evaluation. Dr. Gillespie was also following while in the hospital. TEST RESULT PENDING ON DISCHARGE: None. ALLERGIES: NAPROXEN. DISCHARGE PLAN: Post hospital, the patient will follow up with Dr. Davila in 3 to 4 weeks. The patient will follow up with Dr. Sullivan in 10 days. The patient will follow up with her primary care physician within 1 week. The patient will follow up with Dr. Carr on June 16, 2020, at 11:30 a.m. HOSPITAL COURSE: This is a 54-year-old female who was admitted in the hospital on May 29, 2020. The patient was admitted by Dr. Davila. The patient has underlying bladder cancer as well as history of tobacco and alcohol abuse as well as COPD. Dr. Carr did radical cystectomy and lymph node dissection and Dr. Davila assisted in the surgery with ileal conduit. Incisional hernia was also repaired. Postoperatively, the patient had prolonged ileus that was also resolved with time. Pulmonology and Cardiology were following while in the hospital. Team was following for medical management. Today, we have replaced magnesium. The patient is completely medically stable for discharge as per General Surgery and as per Urology. All new medication prescription sent to her pharmacy. The patient will . Job ID: [id number]
== END 2020-06-11 16:05 | disposition home health service (06) | DRG 336 ==
LOC: SURG A 06-02 05:53 → CCU 06-02 16:07 → SURG A 06-04 12:17
PROVIDERS: ADMIT Urology; ATTEND Urology
PROC: 0UT90ZZ Resection of Uterus, Open Approach (ICD-10-PCS; principal; 2020-06-02)
PROC: 0DNU0ZZ Release Omentum, Open Approach (ICD-10-PCS; 2020-06-02)
PROC: 0WQF0ZZ Repair Abdominal Wall, Open Approach (ICD-10-PCS; 2020-06-02)
PROC: 07BC0ZZ Excision of Pelvis Lymphatic, Open Approach (ICD-10-PCS; 2020-06-02)
PROC: 0UT20ZZ Resection of Bilateral Ovaries, Open Approach (ICD-10-PCS; 2020-06-02)
PROC: 0UB20ZZ Excision of Bilateral Ovaries, Open Approach (ICD-10-PCS; 2020-06-02)
DX: K43.2 Incisional hernia without obstruction or gangrene (principal); E87.2 Acidosis; K56.7 Ileus, unspecified; F10.10 Alcohol abuse, uncomplicated; C67.9 Malignant neoplasm of bladder, unspecified; I10 Essential (primary) hypertension; J44.9 Chronic obstructive pulmonary disease, unspecified; E78.5 Hyperlipidemia, unspecified; K21.9 Gastro-esophageal reflux disease without esophagitis; D64.9 Anemia, unspecified; R00.0 Tachycardia, unspecified; F41.9 Anxiety disorder, unspecified; E87.6 Hypokalemia; E83.42 Hypomagnesemia; J30.2 Other seasonal allergic rhinitis; F31.9 Bipolar disorder, unspecified; Z87.891 Personal history of nicotine dependence; Z90.49 Acquired absence of other specified parts of digestive tract
CPT/HCPCS: 36415; 36416; 36430; 71045; 74018; 74019; 74022; 80048; 82570; 82607; 82746; 82805; 83735; 84132; 84134; 84443; 85025; 85610; 85730; 86850; 86900; 86901; 86922; 87324; 87449; 88305; 88307; 88309; 88331; 93005; 93010; 93306; 94640; J0360; J0690; J0696; J1100; J1200; J1580; J1642; J1650; J1815; J1885; J1940; J1956; J2001; J2060; J2185; J2250; J2270; J2370; J2405; J2550; J2704; J3010; J3475; J3480; J3490; J7050; J7620; J7626; P9016; P9045; Q0162; S0020; S0028

== ENCOUNTER 2021-01-13 09:10 | Outpatient (CLI) | payer OTHER ==
--- NOTE | 2021-01-13 10:37 | CT ---
CT of the abdomen and pelvis with and without contrast-CT urogram: 01/13/2021 COMPARISON: 07/31/2020 HISTORY: Follow-up examination, history of bladder carcinoma TECHNIQUE: Axial CT imaging at 3 mm intervals from the lung bases through the pubic symphysis with an d without IV contrast using CT urogram protocol. Coronal and sagittal reformatted imaging of the urographic phase provided. FINDINGS: Visualized lung bases appear unremarkable. No free intraperitoneal air. The patient is status post cholecystectomy. The liver, pancreas, and adrenal glands appear grossly unremarkable. Round splenic tissue noted in th e left upper quadrant, stable. The noncontrast enhanced appearance of the kidneys demonstrates no nephrolithiasis or evidence of obstructive uropathy. The nephrographic phase imaging of both kidneys demonstrates no suspicious enhancing renal lesion on either side. The urographic phase imaging demonstrates no discrete filling defect within the opacified renal collecting system or ureter on eit her side. Opacified ureters empty into a ileal conduit neobladder within the right lower quadrant with the contrast media extending into the urostomy bag within the right lower quadrant. Limited assessment of the bowel without oral contrast media demonstrates no evidence for inflammatory change or obstruction. The urinary bladder is surgically absent. There are post operative clips in the region of the pelvic sidewall bilaterally. No enlarged pelvic, retroperitoneal, or mesenteric lymph nodes are noted. There is scattered atherosclerotic calcification of the abdominal aorta and its branches. There is a circumaortic left renal vein. Review of the osseous structures demonstrate no worrisome lytic or blastic lesions. IMPRESSION: Postoperative findings as detailed above. No evidence for metastatic disease.
[2021-01-13] MEDS ORDERED: Iopamidol 370 76% 100 ML VIAL ONE (10:54)
== END 2021-01-13 09:11 | disposition home or self-care (01) ==
LOC: BICCT 09:10
PROVIDERS: ATTEND Urology
DX: C67.9 Malignant neoplasm of bladder, unspecified (principal); R35.0 Frequency of micturition; Z90.49 Acquired absence of other specified parts of digestive tract; Z98.890 Other specified postprocedural states
CPT/HCPCS: 74178; Q9967

== ENCOUNTER 2023-12-30 08:51 | Outpatient (CLI) | payer OTHER ==
[2023-12-30] MEDS ORDERED: Iopamidol-370 76% 500 ML MDV (1 ML CHARGE) ONE (14:51)
== END 2023-12-30 08:52 | disposition home or self-care (01) ==
LOC: BICCT 08:51
PROVIDERS: ATTEND Urology
DX: C67.9 Malignant neoplasm of bladder, unspecified (principal)
CPT/HCPCS: 74178; 82565; Q9967

== ENCOUNTER 2024-04-27 13:53 | Emergency (ER) | payer OTHER | END 2024-04-27 17:17 | disposition home or self-care (01) | LOC: ERS 13:53 | DX: R07.89 Other chest pain (principal); Z45.2 Encounter for adjustment and management of vascular access device; I10 Essential (primary) hypertension; J44.9 Chronic obstructive pulmonary disease, unspecified; F17.210 Nicotine dependence, cigarettes, uncomplicated | CPT/HCPCS: 71046 ==